=== PATIENT | male | born 1975 | race Caucasian/White ===

== ENCOUNTER 2017-08-29 00:02 | Inpatient (IN) | payer OTHER ==
[~2017-08-29] VITALS: Ht 172.7 cm; Wt 96.9 kg
[~2017-08-29 00:02] MED LIST: ALBU90OI INH; ALBU90OI6 INH; AMOCLA875 PO; AMOX500 PO; AMOX875 PO; ASPI325 PO; ASPI81CH PO; CEFU500 PO; GUAI600T33 PO; HYDACE5 PO; IBUHYD PO; INSLI100I SC; INSN100I SC; INSR10I; INSR10I SC; INSULANI; INSULANI SC; INSULIN NPH; ONDA4ODT MM; PROCODE120 PO; PROM25 PO; RANI150 PO; SULTRIDS PO
[2017-08-29 00:38] LABS: BASOPHILS ABSOLUTE AUTO 0.04 K/mm3 (0.00-0.23); BASOPHILS PERCENT AUTO 0 % (0-2); EOSINOPHILS ABSOLUTE AUTO 0.18 K/mm3 (0.00-0.68); EOSINOPHILS PERCENT AUTO 2 % (0-6); Hematocrit 45.8 % (37.0-53.0); Hemoglobin 15.3 g/dL (13.5-17.5); IMMATURE GRAN ABSOLUTE AUTO 0.07 K/mm3 (0.00-0.10); IMMATURE GRAN PERCENT AUTO 1 % (0-1); LYMPHOCYTES ABSOLUTE AUTO 1.94 K/mm3 (0.84-5.20); LYMPHOCYTES PERCENT AUTO 19 % (21-46); MONOCYTES ABSOLUTE AUTO 0.83 K/mm3 (0.16-1.47); MONOCYTES PERCENT AUTO 8 % (4-13); Mean Corpuscular HGB 27.7 pg (26.0-34.0); Mean Corpuscular HGB Conc 33.4 g/dL (31.5-36.5); Mean Corpuscular Volume 83 fL (80-100); NEUTROPHILS ABSOLUTE AUTO 7.07 K/mm3 (1.96-9.15); NEUTROPHILS PERCENT AUTO 70 % (41-73); Platelet Count 377 K/mm3 (150-400); RDW Standard Deviation 38.9 fL (35.1-46.3); Red Blood Cell Count 5.53 M/mm3 (4.30-5.90); White Blood Cell Count 10.13 K/mm3 (4.00-11.30)
[2017-08-29 01:02] LABS: Alanine Aminotransfer (ALT/SGP 34 U/L (12-78); Albumin, Blood 2.9 g/dL (3.4-5.0); Albumin/Globulin Ratio 0.7 (0.8-1.8); Alk Phos 114 U/L (50-136); Anion Gap 7 mmol/L (6-16); Aspartate Aminotrans (AST/SGOT 44 U/L (12-37); Bilirubin, Total 0.5 mg/dL (0.1-1.0); Blood Urea Nitrogen 18 mg/dL (8-24); Bun/Creatinine Ratio 15.9 (12.0-20.0); CO2, Blood 22 mmol/L (21-32); Calcium, Blood 8.5 mg/dL (8.5-10.1); Chloride, Blood 110 mmol/L (98-108); Creatinine, Blood 1.13 mg/dL (0.60-1.20); Globulin, Blood 4.1 g/dL (2.2-4.0); Glomerular Filtration Rate >60 (60-); Glucose, Blood 239 mg/dL (70-99); Potassium, Blood 4.3 mmol/L (3.5-5.5); Sodium, Blood 139 mmol/L (136-145)
[2017-08-29 08:22] LABS: BASOPHILS ABSOLUTE AUTO 0.03 K/mm3 (0.00-0.23); BASOPHILS PERCENT AUTO 0 % (0-2); EOSINOPHILS ABSOLUTE AUTO 0.21 K/mm3 (0.00-0.68); EOSINOPHILS PERCENT AUTO 2 % (0-6); Hematocrit 43.1 % (37.0-53.0); Hemoglobin 14.5 g/dL (13.5-17.5); IMMATURE GRAN ABSOLUTE AUTO 0.09 K/mm3 (0.00-0.10); IMMATURE GRAN PERCENT AUTO 1 % (0-1); LYMPHOCYTES PERCENT AUTO 20 % (21-46); MONOCYTES ABSOLUTE AUTO 0.86 K/mm3 (0.16-1.47); MONOCYTES PERCENT AUTO 9 % (4-13); Mean Corpuscular HGB Conc 33.6 g/dL (31.5-36.5); Mean Corpuscular Volume 83 fL (80-100); NEUTROPHILS ABSOLUTE AUTO 6.23 K/mm3 (1.96-9.15); NEUTROPHILS PERCENT AUTO 67 % (41-73); Platelet Count 331 K/mm3 (150-400); RDW Coefficient Variation 13.2 % (11.7-14.2); RDW Standard Deviation 40.3 fL (35.1-46.3); Red Blood Cell Count 5.17 M/mm3 (4.30-5.90); White Blood Cell Count 9.32 K/mm3 (4.00-11.30)
[2017-08-29 08:37] LABS: International Normalized Ratio 0.93; Prothrombin Time Results 9.7 Sec (9.7-11.5)
[2017-08-29 08:47] LABS: Alanine Aminotransfer (ALT/SGP 29 U/L (12-78); Albumin, Blood 2.6 g/dL (3.4-5.0); Albumin/Globulin Ratio 0.7 (0.8-1.8); Alk Phos 100 U/L (50-136); Anion Gap 6 mmol/L (6-16); Aspartate Aminotrans (AST/SGOT 41 U/L (12-37); Bilirubin, Total 0.3 mg/dL (0.1-1.0); Blood Urea Nitrogen 22 mg/dL (8-24); Bun/Creatinine Ratio 17.7 (12.0-20.0); CO2, Blood 23 mmol/L (21-32); Calcium, Blood 8.2 mg/dL (8.5-10.1); Chloride, Blood 109 mmol/L (98-108); Creatinine, Blood 1.24 mg/dL (0.60-1.20); Globulin, Blood 3.6 g/dL (2.2-4.0); Glomerular Filtration Rate >60 (60-); Glucose, Blood 190 mg/dL (70-99); Potassium, Blood 4.3 mmol/L (3.5-5.5); Sodium, Blood 138 mmol/L (136-145); Total Protein, Blood 6.2 g/dL (6.4-8.2)
[2017-08-29 08:57] LABS: Troponin I 10.9 ng/mL (0.000-0.040)
[2017-08-29 18:14] LABS: Troponin I 9.09 ng/mL (0.000-0.040)
[2017-08-30] MEDS ORDERED: INSU100I6 (08:47)
[2017-08-30] MEDS ORDERED: Humulin N100 UNIT/1 SC (08:49)
[2017-08-30] MEDS ORDERED: Protonix40 MG PO (08:54)
[2017-08-30] MEDS ORDERED: NITR.4SL SL (08:58)
[2017-08-30] MEDS ORDERED: LISI5 PO (09:00)
[2017-08-30] MEDS ORDERED: CLOP75 PO (09:00)
[2017-08-30] MEDS ORDERED: Lopressor 50 mg50 MG PO (09:00)
== END 2017-08-30 10:00 | disposition home or self-care (01) | DRG 282 ==
LOC: ER 00:02 → PCU 00:03 → ICUW 13:27
PROVIDERS: Emergency Medicine; Internal Medicine; Internal Medicine Cardiovascular Disease
PROC: 4A023N7 Measurement of Cardiac Sampling and Pressure, Left Heart, Percutaneous Approach (ICD-10-PCS; principal; 2017-08-29)
PROC: B2111ZZ Fluoroscopy of Multiple Coronary Arteries using Low Osmolar Contrast (ICD-10-PCS; 2017-08-29)
PROC: 3E0234Z Introduction of Serum, Toxoid and Vaccine into Muscle, Percutaneous Approach (ICD-10-PCS; 2017-08-29)
DX: I21.4 Non-ST elevation (NSTEMI) myocardial infarction (principal); E11.51 Type 2 diabetes mellitus with diabetic peripheral angiopathy without gangrene; E66.9 Obesity, unspecified; Z23 Encounter for immunization; F17.210 Nicotine dependence, cigarettes, uncomplicated; E78.5 Hyperlipidemia, unspecified; I25.10 Atherosclerotic heart disease of native coronary artery without angina pectoris; I10 Essential (primary) hypertension; K21.9 Gastro-esophageal reflux disease without esophagitis; Z68.32 Body mass index [BMI] 32.0-32.9, adult
CPT/HCPCS: 36415; 71046; 80053; 82550; 82947; 84484; 85025; 85610; 85730; 86850; 86900; 86901; 93005; 93010; 93306; 93458; 96374; 96375; 99152; 99153; 99285; C1769; C1894; G0378; J1644; J1815; J1885; J2250; J2310; J3010; J7030; J7040; Q9967

== ENCOUNTER 2017-10-03 00:16 | Emergency (ER) | payer OTHER ==
[~2017-10-03] VITALS: Ht 172.7 cm; Wt 99.8 kg
[~2017-10-03 00:16] MED LIST changes: +CLOP75 PO; +Humulin N100 UNIT/1 SC; +INSU100I6; +LISI5 PO; +Lopressor 50 mg50 MG PO; +NITR.4SL SL; +Protonix40 MG PO
[2017-10-03 01:13] LABS: BASOPHILS ABSOLUTE AUTO 0.04 K/mm3 (0.00-0.23); BASOPHILS PERCENT AUTO 1 % (0-2); EOSINOPHILS ABSOLUTE AUTO 0.31 K/mm3 (0.00-0.68); EOSINOPHILS PERCENT AUTO 4 % (0-6); Hematocrit 39.8 % (37.0-53.0); IMMATURE GRAN ABSOLUTE AUTO 0.09 K/mm3 (0.00-0.10); IMMATURE GRAN PERCENT AUTO 1 % (0-1); LYMPHOCYTES ABSOLUTE AUTO 1.47 K/mm3 (0.84-5.20); LYMPHOCYTES PERCENT AUTO 20 % (21-46); MONOCYTES ABSOLUTE AUTO 0.68 K/mm3 (0.16-1.47); MONOCYTES PERCENT AUTO 9 % (4-13); Mean Corpuscular HGB 27.7 pg (26.0-34.0); Mean Corpuscular HGB Conc 32.7 g/dL (31.5-36.5); Mean Corpuscular Volume 85 fL (80-100); Mean Platelet Volume 10.3 fL (9.1-12.4); NEUTROPHILS ABSOLUTE AUTO 4.88 K/mm3 (1.96-9.15); NEUTROPHILS PERCENT AUTO 65 % (41-73); Platelet Count 255 K/mm3 (150-400); RDW Coefficient Variation 13.4 % (11.7-14.2); RDW Standard Deviation 41.3 fL (35.1-46.3); White Blood Cell Count 7.47 K/mm3 (4.00-11.30)
[2017-10-03 01:33] LABS: Alanine Aminotransfer (ALT/SGP 48 U/L (12-78); Albumin, Blood 2.8 g/dL (3.4-5.0); Albumin/Globulin Ratio 0.8 (0.8-1.8); Alk Phos 130 U/L (50-136); Anion Gap 6 mmol/L (6-16); Aspartate Aminotrans (AST/SGOT 28 U/L (12-37); Bilirubin, Total 0.4 mg/dL (0.1-1.0); Blood Urea Nitrogen 28 mg/dL (8-24); Bun/Creatinine Ratio 26.4 (12.0-20.0); CO2, Blood 23 mmol/L (21-32); Chloride, Blood 109 mmol/L (98-108); Creatinine, Blood 1.06 mg/dL (0.60-1.20); Globulin, Blood 3.5 g/dL (2.2-4.0); Glomerular Filtration Rate >60 (60-); Glucose, Blood 441 mg/dL (70-99); Potassium, Blood 4.9 mmol/L (3.5-5.5); Sodium, Blood 138 mmol/L (136-145); Total Protein, Blood 6.3 g/dL (6.4-8.2); Troponin I <0.015 ng/mL (0.000-0.040)
== END 2017-10-03 02:10 | disposition home or self-care (01) ==
LOC: ER 00:16
PROVIDERS: Emergency Medicine
DX: R07.9 Chest pain, unspecified (principal); Z88.8 Allergy status to other drugs, medicaments and biological substances; Z79.4 Long term (current) use of insulin; Z79.82 Long term (current) use of aspirin; Z79.899 Other long term (current) drug therapy; E11.9 Type 2 diabetes mellitus without complications; I25.2 Old myocardial infarction; F17.210 Nicotine dependence, cigarettes, uncomplicated
CPT/HCPCS: 36415; 71046; 80053; 84484; 85025; 93005; 93010; 96374; 99283; J1885

== ENCOUNTER → 2018-06-16 | Outpatient (CLI) | payer OTHER ==
[2018-06-16 17:50] LABS: Creatinine, Urine Random 36.2 mg/dL (27.00-270.00)
[2018-06-16 18:19] LABS: Microalb/Creat Ratio UR, Rand 1975.14 mg/g (0.000-30.000)
== END | disposition home or self-care (01) ==
LOC: LAB 16:31 → LAB SHORT 16:31
PROVIDERS: Nurse Practitioner Family
DX: E10.9 Type 1 diabetes mellitus without complications (principal)
CPT/HCPCS: 82043; 82570

== ENCOUNTER 2018-11-23 13:52 | Emergency (ER) | payer OTHER ==
[~2018-11-23] VITALS: Ht 182.9 cm; Wt 99.8 kg
[2018-11-23 14:59] LABS: Alanine Aminotransfer (ALT/SGP 36 U/L (12-78); Albumin, Blood 2.6 g/dL (3.4-5.0); Albumin/Globulin Ratio 0.7 (0.8-1.8); Alk Phos 103 U/L (50-136); Anion Gap 7 mmol/L (6-16); Aspartate Aminotrans (AST/SGOT 30 U/L (12-37); Bilirubin, Total 0.6 mg/dL (0.1-1.0); Blood Urea Nitrogen 22 mg/dL (8-24); Bun/Creatinine Ratio 13.8 (12.0-20.0); CO2, Blood 26 mmol/L (21-32); Calcium, Blood 8.4 mg/dL (8.5-10.1); Chloride, Blood 111 mmol/L (98-108); Creatinine, Blood 1.59 mg/dL (0.60-1.20); Ethanol (Alcohol), Blood, Med <3 mg/dL; Globulin, Blood 3.6 g/dL (2.2-4.0); Glomerular Filtration Rate 51 (60-); Glucose, Blood 98 mg/dL (70-99); Potassium, Blood 3.9 mmol/L (3.5-5.5); Sodium, Blood 144 mmol/L (136-145); Total Protein, Blood 6.2 g/dL (6.4-8.2)
[2018-11-23 15:14] LABS: BASOPHILS ABSOLUTE AUTO 0.06 K/mm3 (0.00-0.23); BASOPHILS PERCENT AUTO 1 % (0-2); EOSINOPHILS ABSOLUTE AUTO 0.13 K/mm3 (0.00-0.68); EOSINOPHILS PERCENT AUTO 1 % (0-6); Hematocrit 47.4 % (37.0-53.0); Hemoglobin 15.5 g/dL (13.5-17.5); IMMATURE GRAN ABSOLUTE AUTO 0.08 K/mm3 (0.00-0.10); IMMATURE GRAN PERCENT AUTO 1 % (0-1); LYMPHOCYTES ABSOLUTE AUTO 1.24 K/mm3 (0.84-5.20); LYMPHOCYTES PERCENT AUTO 14 % (21-46); MONOCYTES ABSOLUTE AUTO 0.73 K/mm3 (0.16-1.47); MONOCYTES PERCENT AUTO 8 % (4-13); Mean Corpuscular HGB 28.3 pg (26.0-34.0); Mean Corpuscular HGB Conc 32.7 g/dL (31.5-36.5); Mean Corpuscular Volume 87 fL (80-100); Mean Platelet Volume 10.3 fL (9.1-12.4); NEUTROPHILS ABSOLUTE AUTO 6.92 K/mm3 (1.96-9.15); NEUTROPHILS PERCENT AUTO 76 % (41-73); Platelet Count 308 K/mm3 (150-400); Red Blood Cell Count 5.47 M/mm3 (4.30-5.90); White Blood Cell Count 9.16 K/mm3 (4.00-11.30)
[2018-11-23 15:45] LABS: Source, Urine Clean Catch
[2018-11-23 16:04] LABS: Bilirubin, Urine Neg (Neg); Blood, Urine 1+ (Neg); Glucose Qualitative, Urine 1+ (Neg); Ketones, Urine Neg (Neg); Leukocyte Esterase, Urine Neg (Neg); Nitrite, Urine Neg (Neg); Protein, Urine 4+ (Neg); Urobilinogen, Urine NORM (Normal)
[2018-11-23 16:14] LABS: Appearance, Urine Clear (Clear); Color, Urine Yellow (P-Yellow)
[2018-11-23 16:15] LABS: Bacteria Few /hpf; Hyaline Casts 0-2 /lpf (0-2); Squamous Epithelial Cells Not Seen /hpf (Few); White Blood Cells, Urine 0-2 /hpf (0-5)
== END 2018-11-23 19:08 | disposition home or self-care (01) ==
LOC: ER 13:52
PROVIDERS: Emergency Medicine
DX: E11.649 Type 2 diabetes mellitus with hypoglycemia without coma (principal); R51 Headache; G91.9 Hydrocephalus, unspecified; Z88.8 Allergy status to other drugs, medicaments and biological substances; Z79.4 Long term (current) use of insulin; Z79.82 Long term (current) use of aspirin; Z79.899 Other long term (current) drug therapy; F17.200 Nicotine dependence, unspecified, uncomplicated
CPT/HCPCS: 70450; 70553; 80053; 81001; 82947; 85025; 93005; 93010; 96374; 96375; 99284-25; A9577; G0480; J2405; J3010

== ENCOUNTER 2018-12-01 14:48 | Emergency (ER) | payer OTHER ==
[~2018-12-01] VITALS: Ht 172.7 cm; Wt 102.1 kg
== END 2018-12-01 18:25 | disposition home or self-care (01) ==
LOC: ER 14:48
DX: R51 Headache (principal); E11.9 Type 2 diabetes mellitus without complications; Z88.8 Allergy status to other drugs, medicaments and biological substances; Z79.899 Other long term (current) drug therapy; Z79.4 Long term (current) use of insulin; Z79.82 Long term (current) use of aspirin; F17.200 Nicotine dependence, unspecified, uncomplicated; Z87.01 Personal history of pneumonia (recurrent)
CPT/HCPCS: 36415; 96374; 96375; 99283-25; J0780; J1100; J1200; J1885

== ENCOUNTER 2019-01-23 14:36 | Emergency (ER) | payer OTHER ==
[~2019-01-23] VITALS: Ht 172.7 cm; Wt 99.8 kg
[2019-01-23 15:35] LABS: Source, Urine Clean Catch
[2019-01-23 15:41] LABS: Bilirubin, Urine Neg (Neg); Blood, Urine 2+ (Neg); Glucose Qualitative, Urine Neg (Neg); Ketones, Urine Neg (Neg); Leukocyte Esterase, Urine Neg (Neg); Nitrite, Urine Neg (Neg); Protein, Urine 4+ (Neg); Urobilinogen, Urine NORM (Normal)
[2019-01-23 15:45] LABS: Albumin, Blood 2.7 g/dL (3.4-5.0); Albumin/Globulin Ratio 0.8 (0.8-1.8); Bilirubin, Total 0.7 mg/dL (0.1-1.0); Bun/Creatinine Ratio 20.9 (12.0-20.0); Calcium, Blood 7.7 mg/dL (8.5-10.1); Creatinine, Blood 1.39 mg/dL (0.60-1.20); Globulin, Blood 3.4 g/dL (2.2-4.0); Potassium, Blood 5.1 mmol/L (3.5-5.5); Total Protein, Blood 6.1 g/dL (6.4-8.2)
[2019-01-23 15:46] LABS: Beta-hydroxybutyrate 3.1 mg/dL (0.2-2.8)
[2019-01-23 15:50] LABS: Appearance, Urine Clear (Clear); Color, Urine Yellow (P-Yellow)
[2019-01-23 15:52] LABS: Bacteria Few /hpf; Granular Casts 0-2 /lpf (0); Squamous Epithelial Cells Rare /hpf (Few); White Blood Cells, Urine 0-2 /hpf (0-5)
== END 2019-01-23 16:21 | disposition home or self-care (01) ==
LOC: ER 14:36
PROVIDERS: Physician Assistant
DX: E11.649 Type 2 diabetes mellitus with hypoglycemia without coma (principal); Z88.8 Allergy status to other drugs, medicaments and biological substances; Z79.4 Long term (current) use of insulin; Z79.82 Long term (current) use of aspirin; I25.2 Old myocardial infarction; F17.210 Nicotine dependence, cigarettes, uncomplicated
CPT/HCPCS: 36415; 80053; 81001; 82010; 82947; 93005; 93010; 99284-25

== ENCOUNTER 2019-06-18 16:11 | Emergency (ER) | payer OTHER ==
[~2019-06-18] VITALS: Ht 172.7 cm; Wt 125.6 kg
[2019-06-18 16:30] LABS: Calcium, Ionized (POC) 1.22 mmol/L (1.10-1.46); Chloride (POC) 109 mmol/L (98-108); Creatinine (POC) 2.2 mg/dL (0.8-1.3); Glucose (ISTAT POC) 142 mg/dL (70-99); Potassium (POC) 4.8 mmol/L (3.5-5.5); Sodium (POC) 140 mmol/L (135-148); Total CO2 (POC) 21 mmol/L (21-32)
[2019-06-18 16:37] LABS: BASOPHILS ABSOLUTE AUTO 0.09 K/mm3 (0.00-0.23); BASOPHILS PERCENT AUTO 1 % (0-2); EOSINOPHILS PERCENT AUTO 3 % (0-6); Hematocrit 49.2 % (37.0-53.0); Hemoglobin 16.3 g/dL (13.5-17.5); IMMATURE GRAN ABSOLUTE AUTO 0.23 K/mm3 (0.00-0.10); IMMATURE GRAN PERCENT AUTO 2 % (0-1); LYMPHOCYTES ABSOLUTE AUTO 2.78 K/mm3 (0.84-5.20); LYMPHOCYTES PERCENT AUTO 23 % (21-46); MONOCYTES ABSOLUTE AUTO 1.06 K/mm3 (0.16-1.47); MONOCYTES PERCENT AUTO 9 % (4-13); Mean Corpuscular HGB 28.7 pg (26.0-34.0); Mean Corpuscular HGB Conc 33.1 g/dL (31.5-36.5); Mean Corpuscular Volume 87 fL (80-100); Mean Platelet Volume 10.2 fL (9.1-12.4); NEUTROPHILS ABSOLUTE AUTO 7.72 K/mm3 (1.96-9.15); NEUTROPHILS PERCENT AUTO 63 % (41-73); Platelet Count 409 K/mm3 (150-400); RDW Coefficient Variation 12.5 % (11.7-14.2); RDW Standard Deviation 39.3 fL (35.1-46.3); Red Blood Cell Count 5.68 M/mm3 (4.30-5.90); White Blood Cell Count 12.18 K/mm3 (4.00-11.30)
[2019-06-18 16:58] LABS: Alanine Aminotransfer (ALT/SGP 44 U/L (12-78); Albumin, Blood 3.1 g/dL (3.4-5.0); Albumin/Globulin Ratio 0.7 (0.8-1.8); Alk Phos 160 U/L (50-136); Anion Gap 6 mmol/L (6-16); Aspartate Aminotrans (AST/SGOT 21 U/L (12-37); Bilirubin, Total 0.4 mg/dL (0.1-1.0); Blood Urea Nitrogen 40 mg/dL (8-24); Bun/Creatinine Ratio 19.5 (12.0-20.0); CO2, Blood 21 mmol/L (21-32); Calcium, Blood 9.5 mg/dL (8.5-10.1); Chloride, Blood 111 mmol/L (98-108); Creatinine, Blood 2.05 mg/dL (0.60-1.20); Globulin, Blood 4.2 g/dL (2.2-4.0); Glomerular Filtration Rate 38 (60-); Glucose, Blood 143 mg/dL (70-99); Potassium, Blood 4.8 mmol/L (3.5-5.5); Sodium, Blood 138 mmol/L (136-145); Total Protein, Blood 7.3 g/dL (6.4-8.2); Troponin I <0.015 ng/mL (0.000-0.040)
[2019-06-18] MEDS ORDERED: Zofran4 MG PO (20:40)
== END 2019-06-18 20:49 | disposition home or self-care (01) ==
LOC: ER 16:11
PROVIDERS: Emergency Medicine
DX: R55 Syncope and collapse (principal); Z88.8 Allergy status to other drugs, medicaments and biological substances; Z79.4 Long term (current) use of insulin; Z79.82 Long term (current) use of aspirin; Z79.899 Other long term (current) drug therapy; E11.9 Type 2 diabetes mellitus without complications; Z87.01 Personal history of pneumonia (recurrent); F17.200 Nicotine dependence, unspecified, uncomplicated
CPT/HCPCS: 71045; 80047; 80053; 83690; 84484; 85014; 85025; 93005; 93010; 96361; 96374; 99285-25; J2405; J7030

== ENCOUNTER 2019-11-29 14:10 | Emergency (ER) | payer OTHER ==
[~2019-11-29] VITALS: Ht 180.3 cm; Wt 86.2 kg
[~2019-11-29 14:10] MED LIST changes: +Zofran4 MG PO
[2019-11-29] MEDS ORDERED: OXYACE7.5T PO (16:22)
[2019-11-29] MEDS ORDERED: CRUTCH4 XX (16:23)
== END 2019-11-29 17:20 | disposition home or self-care (01) ==
LOC: ER 14:10
DX: S82.51XA Displaced fracture of medial malleolus of right tibia, initial encounter for closed fracture (principal); S82.831A Other fracture of upper and lower end of right fibula, initial encounter for closed fracture; Z88.8 Allergy status to other drugs, medicaments and biological substances; Z79.899 Other long term (current) drug therapy; Z79.82 Long term (current) use of aspirin; Z79.4 Long term (current) use of insulin; E11.9 Type 2 diabetes mellitus without complications; E78.5 Hyperlipidemia, unspecified; Z87.01 Personal history of pneumonia (recurrent); W22.8XXA Striking against or struck by other objects, initial encounter
CPT/HCPCS: 29515; 73590; 73610; 73630; 82947; 96374-59; 99284-25; J1885

== ENCOUNTER 2019-12-07 06:07 | Day surgery (SDC) | payer OTHER ==
[~2019-12-07] VITALS: Ht 172.7 cm; Wt 104.5 kg
[~2019-12-07 06:07] MED LIST changes: +CRUTCH4 XX; +OXYACE7.5T PO
[2019-12-07] MEDS ORDERED: AMIT50 PO (07:31)
[2019-12-07] MEDS ORDERED: BASAGLAR K100 UNIT/3 (07:31)
[2019-12-07] MEDS ORDERED: Chantix1 MG (07:31)
--- NOTE | 2019-12-07 13:30 | NUR ---
12/07/19 1330 Jaymie Armas (Maria D PT UNSURE IF HE IS STILL TAKING PLAVIX. PT STS HE DID NOT HOLD ANY MEDICATIONS LEADING UP TO SURGERY. STS HE TOOK ALL OF HIS "CARDIAC MEDS THIS MORNING" BUT DOESN'T KNOW THE MEDICATION NAMES. SURGEON & ANESTHESIOLOGIST NOTIFIED. UNABLE TO CALL PT'S HOME TO VERIFY MEDICATIONS, UNABLE TO CALL PHARMACY. ANESTHESIOLOGIST REQUESTS TO RESCHEDULE PROCEDURE FOR SAFETY; PT AGREES.
== END 2019-12-07 07:51 | disposition home or self-care (01) ==
LOC: ORSCSDS 06:07
DX: S82.51XA Displaced fracture of medial malleolus of right tibia, initial encounter for closed fracture (principal); S93.491A Sprain of other ligament of right ankle, initial encounter; Z53.9 Procedure and treatment not carried out, unspecified reason; E11.9 Type 2 diabetes mellitus without complications
CPT/HCPCS: 82947; J0171; J0690; J2250; J2704; J3010; J7120

== ENCOUNTER 2019-12-12 06:09 | Day surgery (SDC) | payer OTHER ==
[~2019-12-12] VITALS: Ht 172.7 cm; Wt 108.6 kg
[~2019-12-12 06:09] MED LIST changes: +AMIT50 PO; +BASAGLAR K100 UNIT/3; +Chantix1 MG
--- NOTE | 2019-12-12 07:24 | NUR ---
12/12/19 0724 BRYAN GU CBG OF [address] MANN ADVISED AND NEW ORDER FOR REGULAR INSULIN, 20 UNITS SQ RECEIVED. PATIENT GIVEN 20 UNITS SQ IN LEFT UPPER ARM.
--- NOTE | 2019-12-12 08:57 | NUR ---
12/12/19 0857 Alejandra Dean REPORT GIVEN TO NURSE GANDHI.
--- NOTE | 2019-12-12 11:04 | NUR ---
12/12/19 1104 [place],Kathryn 0918 FENTANYL 50MCG GIVEN IV FOR CO PAIN 5/10. RELIEF TO 3/10 AFTER 15-20 MIN AND STATES IS TOLERABLE. 0924 20 UNITS OF HUMULIN R GIVEN SQ LEFT ARM PER TELEPHONE ORDER DR. MANN FOR BLOOD SUGAR OF 390. CRACKERS/BEVERAGE GIVEN. NO CO NAUSEA. PAIN TOLERABLE LEVEL PER PT. DISCHARGE INSTRUCTIONS GIVEN. DISCHARGED HOME WITH FRIEND FIONA.
[2019-12-15] MEDS ORDERED: ONDA4ODT MM (17:12)
== END 2019-12-12 10:15 | disposition home or self-care (01) ==
LOC: ORSCSDS 06:09
PROVIDERS: Podiatrist Foot & Ankle Surgery
PROC: 0QSG04Z Reposition Right Tibia with Internal Fixation Device, Open Approach (ICD-10-PCS; principal; 2019-12-12 07:30)
DX: S82.51XA Displaced fracture of medial malleolus of right tibia, initial encounter for closed fracture (principal); S93.491A Sprain of other ligament of right ankle, initial encounter; I10 Essential (primary) hypertension; I25.10 Atherosclerotic heart disease of native coronary artery without angina pectoris; F17.210 Nicotine dependence, cigarettes, uncomplicated; N18.9 Chronic kidney disease, unspecified; E11.9 Type 2 diabetes mellitus without complications; Z79.4 Long term (current) use of insulin; Z79.899 Other long term (current) drug therapy; Z79.82 Long term (current) use of aspirin; Z79.01 Long term (current) use of anticoagulants
CPT/HCPCS: 82947; C1713; C1769; J0171; J0360; J0690; J1815; J2250; J2405; J2704; J2710; J2765; J3010; J7120

== ENCOUNTER 2020-02-26 07:11 | Day surgery (SDC) | payer OTHER ==
[2020-03-29] MEDS ORDERED: HYDCHL25 PO (05:39)
[2020-03-29] MEDS ORDERED: BASAGLAR K100 UNIT/1 SC (05:40)
[2020-03-29] MEDS ORDERED: LIPITOR80 MG PO (05:41)
[2020-03-29] MEDS ORDERED: ESCI10 PO (05:41)
[2020-03-29] MEDS ORDERED: PANTOPRAZOLE SO20 MG PO (05:42)
[2020-03-29] MEDS ORDERED: LISI20 PO (05:42)
[2020-03-29] MEDS ORDERED: ISOSORBIDE MONO30 MG PO (05:44)
[2020-03-29] MEDS ORDERED: INSULIN LI100 UNIT/6 SC (05:44)
[2020-03-30] MEDS ORDERED: Norco 5-325 Ta1 EACH PO (11:03)
[2020-03-30] MEDS ORDERED: ASPIR 8181 M1 PO (11:20)
== END 2020-02-26 22:37 | disposition home or self-care (01) ==
LOC: WOUND 07:11
DX: E10.622 Type 1 diabetes mellitus with other skin ulcer (principal); L97.312 Non-pressure chronic ulcer of right ankle with fat layer exposed; E10.52 Type 1 diabetes mellitus with diabetic peripheral angiopathy with gangrene; I96 Gangrene, not elsewhere classified; I12.9 Hypertensive chronic kidney disease with stage 1 through stage 4 chronic kidney disease, or unspecified chronic kidney disease; E10.22 Type 1 diabetes mellitus with diabetic chronic kidney disease; N18.9 Chronic kidney disease, unspecified; H74.93 Unspecified disorder of middle ear and mastoid, bilateral; F32.9 Major depressive disorder, single episode, unspecified; G43.909 Migraine, unspecified, not intractable, without status migrainosus; I25.10 Atherosclerotic heart disease of native coronary artery without angina pectoris; I25.2 Old myocardial infarction; F17.210 Nicotine dependence, cigarettes, uncomplicated; Z88.8 Allergy status to other drugs, medicaments and biological substances; Z91.048 Other nonmedicinal substance allergy status; Z79.4 Long term (current) use of insulin; Z79.82 Long term (current) use of aspirin; Z79.02 Long term (current) use of antithrombotics/antiplatelets; Z79.899 Other long term (current) drug therapy; Z96.60 Presence of unspecified orthopedic joint implant; X58.XXXA Exposure to other specified factors, initial encounter

== ENCOUNTER 2020-03-07 12:57 | Day surgery (SDC) | payer OTHER | END 2020-03-07 22:37 | disposition home or self-care (01) | LOC: WOUND 12:57 | DX: T81.31XA Disruption of external operation (surgical) wound, not elsewhere classified, initial encounter (principal); S82.51XD Displaced fracture of medial malleolus of right tibia, subsequent encounter for closed fracture with routine healing; S93.491D Sprain of other ligament of right ankle, subsequent encounter; N18.9 Chronic kidney disease, unspecified; E11.22 Type 2 diabetes mellitus with diabetic chronic kidney disease ==

== ENCOUNTER 2020-03-21 00:30 | Day surgery (SDC) | payer OTHER ==
[2020-03-29] MEDS ORDERED: HYDCHL25 PO (05:39)
[2020-03-29] MEDS ORDERED: BASAGLAR K100 UNIT/1 SC (05:40)
[2020-03-29] MEDS ORDERED: LIPITOR80 MG PO (05:41)
[2020-03-29] MEDS ORDERED: ESCI10 PO (05:41)
[2020-03-29] MEDS ORDERED: PANTOPRAZOLE SO20 MG PO (05:42)
[2020-03-29] MEDS ORDERED: LISI20 PO (05:42)
[2020-03-29] MEDS ORDERED: ISOSORBIDE MONO30 MG PO (05:44)
[2020-03-29] MEDS ORDERED: INSULIN LI100 UNIT/6 SC (05:44)
[2020-03-30] MEDS ORDERED: Norco 5-325 Ta1 EACH PO (11:03)
[2020-03-30] MEDS ORDERED: ASPIR 8181 M1 PO (11:20)
== END 2020-03-21 12:00 | disposition home or self-care (01) ==
LOC: WOUND 00:30
DX: T81.31XA Disruption of external operation (surgical) wound, not elsewhere classified, initial encounter (principal); S93.491D Sprain of other ligament of right ankle, subsequent encounter; S82.51XD Displaced fracture of medial malleolus of right tibia, subsequent encounter for closed fracture with routine healing; E11.22 Type 2 diabetes mellitus with diabetic chronic kidney disease; N18.9 Chronic kidney disease, unspecified; Z79.4 Long term (current) use of insulin; Z79.899 Other long term (current) drug therapy

== ENCOUNTER 2020-03-28 00:32 | Day surgery (SDC) | payer OTHER ==
[2020-03-29] MEDS ORDERED: HYDCHL25 PO (05:39)
[2020-03-29] MEDS ORDERED: BASAGLAR K100 UNIT/1 SC (05:40)
[2020-03-29] MEDS ORDERED: ESCI10 PO (05:41)
[2020-03-29] MEDS ORDERED: LIPITOR80 MG PO (05:41)
[2020-03-29] MEDS ORDERED: LISI20 PO (05:42)
[2020-03-29] MEDS ORDERED: PANTOPRAZOLE SO20 MG PO (05:42)
[2020-03-29] MEDS ORDERED: INSULIN LI100 UNIT/6 SC (05:44)
[2020-03-29] MEDS ORDERED: ISOSORBIDE MONO30 MG PO (05:44)
[2020-03-30] MEDS ORDERED: Norco 5-325 Ta1 EACH PO (11:03)
[2020-03-30] MEDS ORDERED: ASPIR 8181 M1 PO (11:20)
== END 2020-03-28 22:51 | disposition home or self-care (01) ==
LOC: WOUND 00:32
DX: T81.31XA Disruption of external operation (surgical) wound, not elsewhere classified, initial encounter (principal); S93.491D Sprain of other ligament of right ankle, subsequent encounter; S82.51XD Displaced fracture of medial malleolus of right tibia, subsequent encounter for closed fracture with routine healing; E11.22 Type 2 diabetes mellitus with diabetic chronic kidney disease; N18.9 Chronic kidney disease, unspecified; Z79.899 Other long term (current) drug therapy; Z79.4 Long term (current) use of insulin

== ENCOUNTER 2020-03-29 00:48 | Inpatient (IN) | payer OTHER | END 2020-03-30 12:45 | disposition home or self-care (01) | DRG 418 | LOC: ER 00:48 → SURS 05:26 | PROVIDERS: ADMIT Internal Medicine | PROC: 0FT44ZZ Resection of Gallbladder, Percutaneous Endoscopic Approach (ICD-10-PCS; principal; 2020-03-29) | PROC: BF03YZZ Plain Radiography of Gallbladder and Bile Ducts using Other Contrast (ICD-10-PCS; 2020-03-29) | DX: K80.01 Calculus of gallbladder with acute cholecystitis with obstruction (principal); N17.9 Acute kidney failure, unspecified; K82.A1 Gangrene of gallbladder in cholecystitis; D47.3 Essential (hemorrhagic) thrombocythemia; N18.30 Chronic kidney disease, stage 3 unspecified; D63.1 Anemia in chronic kidney disease; E11.22 Type 2 diabetes mellitus with diabetic chronic kidney disease; K21.9 Gastro-esophageal reflux disease without esophagitis; I12.9 Hypertensive chronic kidney disease with stage 1 through stage 4 chronic kidney disease, or unspecified chronic kidney disease; I25.10 Atherosclerotic heart disease of native coronary artery without angina pectoris; E66.9 Obesity, unspecified; Z68.36 Body mass index [BMI] 36.0-36.9, adult; Z79.4 Long term (current) use of insulin; Z79.82 Long term (current) use of aspirin; Z79.02 Long term (current) use of antithrombotics/antiplatelets; Z87.891 Personal history of nicotine dependence ==

== ENCOUNTER 2021-07-03 07:33 | Day surgery (SDC) | payer OTHER ==
[~2021-07-03 07:33] MED LIST changes: +ASPIR 8181 M1 PO; +BASAGLAR K100 UNIT/1 SC; +ESCI10 PO; +HYDCHL25 PO; +INSULIN LI100 UNIT/6 SC; +ISOSORBIDE MONO30 MG PO; +LIPITOR80 MG PO; +LISI20 PO; +Norco 5-325 Ta1 EACH PO; +PANTOPRAZOLE SO20 MG PO
== END 2021-07-03 23:48 | disposition home or self-care (01) ==
LOC: WOUND 07:33
DX: E11.621 Type 2 diabetes mellitus with foot ulcer (principal); L97.419 Non-pressure chronic ulcer of right heel and midfoot with unspecified severity; T81.31XA Disruption of external operation (surgical) wound, not elsewhere classified, initial encounter; S93.491D Sprain of other ligament of right ankle, subsequent encounter; S82.51XD Displaced fracture of medial malleolus of right tibia, subsequent encounter for closed fracture with routine healing; X58.XXXD Exposure to other specified factors, subsequent encounter; R77.0 Abnormality of albumin; N18.30 Chronic kidney disease, stage 3 unspecified; E11.22 Type 2 diabetes mellitus with diabetic chronic kidney disease; Z88.8 Allergy status to other drugs, medicaments and biological substances; F17.210 Nicotine dependence, cigarettes, uncomplicated
CPT/HCPCS: G0463

== ENCOUNTER 2021-07-08 01:48 | Day surgery (SDC) | payer OTHER | END 2021-07-08 22:36 | disposition home or self-care (01) | LOC: WOUND 01:48 | DX: E11.69 Type 2 diabetes mellitus with other specified complication (principal); M86.471 Chronic osteomyelitis with draining sinus, right ankle and foot; E11.621 Type 2 diabetes mellitus with foot ulcer; L97.319 Non-pressure chronic ulcer of right ankle with unspecified severity; T81.31XA Disruption of external operation (surgical) wound, not elsewhere classified, initial encounter; S82.51XD Displaced fracture of medial malleolus of right tibia, subsequent encounter for closed fracture with routine healing; E11.22 Type 2 diabetes mellitus with diabetic chronic kidney disease; N18.30 Chronic kidney disease, stage 3 unspecified; R77.0 Abnormality of albumin | CPT/HCPCS: A9270; G0463 ==

== ENCOUNTER 2021-07-22 01:22 | Day surgery (SDC) | payer OTHER | END 2021-07-22 23:03 | disposition home or self-care (01) | LOC: WOUND 01:22 | DX: E11.621 Type 2 diabetes mellitus with foot ulcer (principal); L97.518 Non-pressure chronic ulcer of other part of right foot with other specified severity; T81.31XA Disruption of external operation (surgical) wound, not elsewhere classified, initial encounter; R77.0 Abnormality of albumin; E11.22 Type 2 diabetes mellitus with diabetic chronic kidney disease; N18.30 Chronic kidney disease, stage 3 unspecified; E11.69 Type 2 diabetes mellitus with other specified complication; M86.471 Chronic osteomyelitis with draining sinus, right ankle and foot | CPT/HCPCS: G0463 ==

== ENCOUNTER 2021-08-25 00:39 | Day surgery (SDC) | payer OTHER | END 2021-08-25 22:55 | disposition home or self-care (01) | LOC: WOUND 00:39 | DX: E11.622 Type 2 diabetes mellitus with other skin ulcer (principal); L97.319 Non-pressure chronic ulcer of right ankle with unspecified severity; E11.69 Type 2 diabetes mellitus with other specified complication; M86.471 Chronic osteomyelitis with draining sinus, right ankle and foot; E11.22 Type 2 diabetes mellitus with diabetic chronic kidney disease; N18.30 Chronic kidney disease, stage 3 unspecified; R77.0 Abnormality of albumin; S82.51XD Displaced fracture of medial malleolus of right tibia, subsequent encounter for closed fracture with routine healing; T81.31XA Disruption of external operation (surgical) wound, not elsewhere classified, initial encounter; Y83.9 Surgical procedure, unspecified as the cause of abnormal reaction of the patient, or of later complication, without mention of misadventure at the time of the procedure | CPT/HCPCS: G0463 ==

== ENCOUNTER 2021-09-18 03:07 | Day surgery (SDC) | payer OTHER | END 2021-09-18 22:56 | disposition home or self-care (01) | LOC: WOUND 03:07 | DX: E11.621 Type 2 diabetes mellitus with foot ulcer (principal); L97.519 Non-pressure chronic ulcer of other part of right foot with unspecified severity; S82.51XD Displaced fracture of medial malleolus of right tibia, subsequent encounter for closed fracture with routine healing; T81.31XA Disruption of external operation (surgical) wound, not elsewhere classified, initial encounter; R77.2 Abnormality of alphafetoprotein; E11.22 Type 2 diabetes mellitus with diabetic chronic kidney disease; N18.30 Chronic kidney disease, stage 3 unspecified | CPT/HCPCS: 87070; 87075; 87205; G0463 ==

== ENCOUNTER 2021-10-02 00:34 | Day surgery (SDC) | payer OTHER | END 2021-10-03 22:38 | disposition home or self-care (01) | LOC: WOUND 00:34 | DX: E11.69 Type 2 diabetes mellitus with other specified complication (principal); M86.471 Chronic osteomyelitis with draining sinus, right ankle and foot; S82.51XD Displaced fracture of medial malleolus of right tibia, subsequent encounter for closed fracture with routine healing; T81.31XD Disruption of external operation (surgical) wound, not elsewhere classified, subsequent encounter; E11.622 Type 2 diabetes mellitus with other skin ulcer; L97.319 Non-pressure chronic ulcer of right ankle with unspecified severity; R77.0 Abnormality of albumin; E11.22 Type 2 diabetes mellitus with diabetic chronic kidney disease; N18.30 Chronic kidney disease, stage 3 unspecified | CPT/HCPCS: G0463 ==

== ENCOUNTER 2021-10-16 01:04 | Day surgery (SDC) | payer OTHER | END 2021-10-16 23:00 | disposition home or self-care (01) | LOC: WOUND 01:04 | DX: E11.622 Type 2 diabetes mellitus with other skin ulcer (principal); L97.318 Non-pressure chronic ulcer of right ankle with other specified severity; E11.69 Type 2 diabetes mellitus with other specified complication; M86.471 Chronic osteomyelitis with draining sinus, right ankle and foot; S82.51XD Displaced fracture of medial malleolus of right tibia, subsequent encounter for closed fracture with routine healing; T81.31XA Disruption of external operation (surgical) wound, not elsewhere classified, initial encounter; E11.22 Type 2 diabetes mellitus with diabetic chronic kidney disease; N18.30 Chronic kidney disease, stage 3 unspecified; Y83.8 Other surgical procedures as the cause of abnormal reaction of the patient, or of later complication, without mention of misadventure at the time of the procedure | CPT/HCPCS: A9270; G0463 ==

== ENCOUNTER 2021-12-04 08:00 | Day surgery (SDC) | payer OTHER ==
[~2021-12-04 08:00] MED LIST changes: +BASAGLAR K100 UNIT/1; -BASAGLAR K100 UNIT/1 SC
== END 2021-12-04 23:59 | disposition home or self-care (01) ==
LOC: WOUND
DX: E11.622 Type 2 diabetes mellitus with other skin ulcer (principal); L97.312 Non-pressure chronic ulcer of right ankle with fat layer exposed; S82.51XD Displaced fracture of medial malleolus of right tibia, subsequent encounter for closed fracture with routine healing; X58.XXXD Exposure to other specified factors, subsequent encounter; T81.31XA Disruption of external operation (surgical) wound, not elsewhere classified, initial encounter; R77.0 Abnormality of albumin; N18.30 Chronic kidney disease, stage 3 unspecified; E11.22 Type 2 diabetes mellitus with diabetic chronic kidney disease; M86.471 Chronic osteomyelitis with draining sinus, right ankle and foot
CPT/HCPCS: A9270; G0463

== ENCOUNTER 2021-12-13 15:54 | Inpatient (IN) | payer OTHER ==
[~2021-12-13] VITALS: Ht 172.7 cm; Wt 106.5 kg
[2021-12-13 17:10] LABS: BASOPHILS ABSOLUTE AUTO 0.06 K/mm3 (0.00-0.23); BASOPHILS PERCENT AUTO 0 % (0-2); EOSINOPHILS PERCENT AUTO 1 % (0-6); Hematocrit 40.8 % (37.0-53.0); Hemoglobin 13.3 g/dL (13.5-17.5); IMMATURE GRAN ABSOLUTE AUTO 0.22 K/mm3 (0.00-0.10); IMMATURE GRAN PERCENT AUTO 2 % (0-1); LYMPHOCYTES ABSOLUTE AUTO 1.49 K/mm3 (0.84-5.20); LYMPHOCYTES PERCENT AUTO 10 % (21-46); MONOCYTES ABSOLUTE AUTO 1.27 K/mm3 (0.16-1.47); MONOCYTES PERCENT AUTO 9 % (4-13); Mean Corpuscular HGB 28.7 pg (26.0-34.0); Mean Corpuscular HGB Conc 32.6 g/dL (31.5-36.5); Mean Corpuscular Volume 88 fL (80-100); Mean Platelet Volume 10.5 fL (9.1-12.4); NEUTROPHILS PERCENT AUTO 78 % (41-73); Platelet Count 409 K/mm3 (150-400); RDW Coefficient Variation 13.3 % (11.7-14.2); RDW Standard Deviation 43.4 fL (35.1-46.3); Red Blood Cell Count 4.64 M/mm3 (4.30-5.90); White Blood Cell Count 14.64 K/mm3 (4.00-11.30)
[2021-12-13 17:26] LABS: C-REACTIVE PROTEIN, EXT RANGE 5.83 mg/dL (0.000-0.300)
[2021-12-13 17:28] LABS: Albumin, Blood 2.7 g/dL (3.4-5.0); Albumin/Globulin Ratio 0.6 (0.8-1.8); Bilirubin, Total 0.3 mg/dL (0.1-1.0); Bun/Creatinine Ratio 23.5 (12.0-20.0); Calcium, Blood 8.5 mg/dL (8.5-10.1); Creatinine, Blood 1.96 mg/dL (0.60-1.20); Globulin, Blood 4.5 g/dL (2.2-4.0); Potassium, Blood 5.3 mmol/L (3.5-5.5); Total Protein, Blood 7.2 g/dL (6.4-8.2)
[2021-12-13 23:23] LABS: Influenza A, PCR NEGATIVE (NEGATIVE); Influenza B, PCR NEGATIVE (NEGATIVE); Resp Syncytial Virus, PCR NEGATIVE (NEGATIVE); SARS-Cov-2 (COVID-19) PCR, MMC NEGATIVE (NEGATIVE)
--- NOTE | 2021-12-14 04:34 | NUR ---
SUMMARY PT ARRIVED TO FLOOR IN NO DISTRESS OR DISCOMFORT. PT HAS REMAINED NPO SINCE 0000 HRS. PT HAS SLEPT FOR REMAINDER OF SHIFT. PT HAS DENIED PAIN OR DISCOMFORT. PT CURRENTLY SLEEPING IN NO DISTRESS. CALL LIGHT IN REACH.
[2021-12-14 05:39] LABS: BASOPHILS ABSOLUTE AUTO 0.06 K/mm3 (0.00-0.23); BASOPHILS PERCENT AUTO 1 % (0-2); EOSINOPHILS ABSOLUTE AUTO 0.26 K/mm3 (0.00-0.68); EOSINOPHILS PERCENT AUTO 3 % (0-6); Hematocrit 39.2 % (37.0-53.0); Hemoglobin 12.6 g/dL (13.5-17.5); IMMATURE GRAN ABSOLUTE AUTO 0.11 K/mm3 (0.00-0.10); IMMATURE GRAN PERCENT AUTO 1 % (0-1); LYMPHOCYTES ABSOLUTE AUTO 1.71 K/mm3 (0.84-5.20); LYMPHOCYTES PERCENT AUTO 18 % (21-46); MONOCYTES ABSOLUTE AUTO 1.01 K/mm3 (0.16-1.47); MONOCYTES PERCENT AUTO 11 % (4-13); Mean Corpuscular HGB Conc 32.1 g/dL (31.5-36.5); Mean Corpuscular Volume 90 fL (80-100); Mean Platelet Volume 10.5 fL (9.1-12.4); NEUTROPHILS ABSOLUTE AUTO 6.45 K/mm3 (1.96-9.15); NEUTROPHILS PERCENT AUTO 67 % (41-73); Platelet Count 352 K/mm3 (150-400); RDW Coefficient Variation 13.3 % (11.7-14.2); RDW Standard Deviation 43.8 fL (35.1-46.3); Red Blood Cell Count 4.34 M/mm3 (4.30-5.90)
[2021-12-14 06:07] LABS: Albumin, Blood 2.4 g/dL (3.4-5.0); Albumin/Globulin Ratio 0.6 (0.8-1.8); Bilirubin, Total 0.5 mg/dL (0.1-1.0); Bun/Creatinine Ratio 21.1 (12.0-20.0); Calcium, Blood 8.9 mg/dL (8.5-10.1); Creatinine, Blood 1.85 mg/dL (0.60-1.20); Globulin, Blood 4.1 g/dL (2.2-4.0); Potassium, Blood 4.4 mmol/L (3.5-5.5); Total Protein, Blood 6.5 g/dL (6.4-8.2)
--- NOTE | 2021-12-14 17:21 | NUR ---
12/14/21 1721 Terrie Reynolds NO PREOP ANTIBIOTICS ORDERED PER PATIENT IS ON SCHEDULED ANTIBIOTICS.
--- NOTE | 2021-12-14 18:31 | NUR ---
SHIFT SUMMARY PATIENT ALERT AND ORIENTED. NAPPED FREQUENTLY. INDEPENDENT IN ROOM. WENT FOR I&D OF RIGHT ANKLE WITH DR GODINEZ AT 1600. PRE OP PATIENT REPORTED NO PAIN. RIGHT ANKLE SWOLLEN WITH SMALL OPEN WOUND. NO DRAINAGE THIS SHIFT. WILL REPORT TO DIAMOND SIZER AND SORTER RN.
[2021-12-15 05:23] LABS: BASOPHILS ABSOLUTE AUTO 0.03 K/mm3 (0.00-0.23); BASOPHILS PERCENT AUTO 0 % (0-2); EOSINOPHILS PERCENT AUTO 0 % (0-6); Hematocrit 38.9 % (37.0-53.0); Hemoglobin 12.9 g/dL (13.5-17.5); IMMATURE GRAN ABSOLUTE AUTO 0.13 K/mm3 (0.00-0.10); IMMATURE GRAN PERCENT AUTO 1 % (0-1); LYMPHOCYTES ABSOLUTE AUTO 0.83 K/mm3 (0.84-5.20); LYMPHOCYTES PERCENT AUTO 6 % (21-46); MONOCYTES ABSOLUTE AUTO 0.81 K/mm3 (0.16-1.47); MONOCYTES PERCENT AUTO 6 % (4-13); Mean Corpuscular HGB Conc 33.2 g/dL (31.5-36.5); Mean Corpuscular Volume 87 fL (80-100); Mean Platelet Volume 10.5 fL (9.1-12.4); NEUTROPHILS ABSOLUTE AUTO 11.24 K/mm3 (1.96-9.15); NEUTROPHILS PERCENT AUTO 86 % (41-73); Platelet Count 396 K/mm3 (150-400); RDW Coefficient Variation 13.2 % (11.7-14.2); RDW Standard Deviation 42.1 fL (35.1-46.3); Red Blood Cell Count 4.45 M/mm3 (4.30-5.90); White Blood Cell Count 13.04 K/mm3 (4.00-11.30)
[2021-12-15 05:46] LABS: Anion Gap 10 mmol/L (6-16); Blood Urea Nitrogen 39 mg/dL (8-24); Bun/Creatinine Ratio 20.5 (12.0-20.0); CO2, Blood 19 mmol/L (21-32); Calcium, Blood 8.5 mg/dL (8.5-10.1); Chloride, Blood 105 mmol/L (98-108); Glomerular Filtration Rate 44 (60-); Glucose, Blood 324 mg/dL (70-99); Potassium, Blood 5.6 mmol/L (3.5-5.5); Sodium, Blood 134 mmol/L (136-145); Vancomycin, Trough 14.9 ug/mL (5.0-10.0)
--- NOTE | 2021-12-15 07:33 | NUR ---
SHIFT SUMMARY POD1 I&D ON R ANKLE WITH REMOVAL OF HARDWARE. NWB ON RLE. PT REPORTS MODERATE PAIN, PAIN MANAGED WITH FENTANYL 50MCG. PT REPORTS THAT R FOOT FEELS LIKE HAVING CRAMPING SENSATION. RLE ELEVATED WITH PILLOW. CONT REPOSITIONING. AOX4. CBG THIS MORNING WAS STILL OVER 300. PT WAS HYPERTENSIVE AFTER SURGERY. CALLED DR. CHOI, HYDRALAZINE 10MG Q6. GIVEN ONCE. BP IMPROVED. VOIDING. CALL LIGHT WITHN REACH. REPORT GIVEN TO ODESSA DICKINSON
--- NOTE | 2021-12-15 08:30 | NUR ---
CGB [address] MRAIN. RECEIVED ORDERS TO CHANGE TO HIGH SLIDING SCALE AND TO ADMINISTER ANOTHER 15 UNITS OF LONG ACTING INSULIN.
--- NOTE | 2021-12-15 19:06 | NUR ---
SHIFT SUMMARY PT POD #1 FOR R FOOT I&D. DRESSING CHANGED THIS SHIFT. NO COMPLAINTS OF PAIN AND DRESSING CDI. PT REQUESTING TO TAKE HOME HARDWARE THAT WAS IN HIS ANKLE. INSULIN ADJUSTED DUE TO HIGH BLOOD GLUCOSE LEVEL THIS AM. BLOOD GLUCOSE LEVELS TRENDING DOWN. RECEIVING IV ANTIBIOTICS. VSS.
[2021-12-16 05:36] LABS: BASOPHILS ABSOLUTE AUTO 0.05 K/mm3 (0.00-0.23); BASOPHILS PERCENT AUTO 1 % (0-2); EOSINOPHILS PERCENT AUTO 3 % (0-6); Hematocrit 37.2 % (37.0-53.0); Hemoglobin 12.2 g/dL (13.5-17.5); IMMATURE GRAN ABSOLUTE AUTO 0.17 K/mm3 (0.00-0.10); IMMATURE GRAN PERCENT AUTO 2 % (0-1); LYMPHOCYTES ABSOLUTE AUTO 1.56 K/mm3 (0.84-5.20); LYMPHOCYTES PERCENT AUTO 16 % (21-46); MONOCYTES ABSOLUTE AUTO 1.03 K/mm3 (0.16-1.47); MONOCYTES PERCENT AUTO 11 % (4-13); Mean Corpuscular HGB Conc 32.8 g/dL (31.5-36.5); Mean Corpuscular Volume 89 fL (80-100); Mean Platelet Volume 10.8 fL (9.1-12.4); NEUTROPHILS ABSOLUTE AUTO 6.54 K/mm3 (1.96-9.15); NEUTROPHILS PERCENT AUTO 68 % (41-73); Platelet Count 366 K/mm3 (150-400); RDW Coefficient Variation 13.2 % (11.7-14.2); RDW Standard Deviation 42.7 fL (35.1-46.3); White Blood Cell Count 9.65 K/mm3 (4.00-11.30)
--- NOTE | 2021-12-16 05:51 | NUR ---
SUMMARY NO NEW ISSUES NOTED. PT DENIES PAIN. PT SLEPT THROUGHOUT SHIFT. CALL LIGHT IN REACH.
[2021-12-16 06:03] LABS: Anion Gap 9 mmol/L (6-16); Blood Urea Nitrogen 44 mg/dL (8-24); Bun/Creatinine Ratio 22.6 (12.0-20.0); CO2, Blood 22 mmol/L (21-32); Chloride, Blood 106 mmol/L (98-108); Creatinine, Blood 1.95 mg/dL (0.60-1.20); Glomerular Filtration Rate 42 (60-); Glucose, Blood 269 mg/dL (70-99); Potassium, Blood 4.4 mmol/L (3.5-5.5); Sodium, Blood 137 mmol/L (136-145); Vancomycin, Trough 16.3 ug/mL (5.0-10.0)
[2021-12-16] MEDS ORDERED: HUMALOG KW100 UNIT/1 SC (13:02)
[2021-12-16] MEDS ORDERED: VISBIOME 112.51 EACH PO (13:03)
[2021-12-16] MEDS ORDERED: Veetids 500500 MG PO (13:04)
--- NOTE | 2021-12-16 15:06 | NUR ---
DISCHARGE SUMMARY PT POD #2 FOR I&D TO R FOOT. ELKE WRAP DRESSING IN PLACE AND CDI. INSTRUCTED TO FOLLOW UP WITH PODIATRY. NO C/O PAIN THIS SHIFT AND PT IS ABLE TO AMBULATE WHILE NOT BEARING WEIGHT ON HIS R FOOT. VSS. DISCHARGED HOME.
== END 2021-12-16 15:00 | disposition home or self-care (01) | DRG 496 ==
LOC: ER 15:54 → SURS 15:55
PROVIDERS: Emergency Medicine; Internal Medicine; Physician Assistant; Podiatrist Foot & Ankle Surgery; ADMIT Internal Medicine
PROC: 0J9Q0ZZ Drainage of Right Foot Subcutaneous Tissue and Fascia, Open Approach (ICD-10-PCS; 2021-12-14)
PROC: 0SPF0JZ Removal of Synthetic Substitute from Right Ankle Joint, Open Approach (ICD-10-PCS; principal; 2021-12-14 16:30)
DX: T84.59XA Infection and inflammatory reaction due to other internal joint prosthesis, initial encounter (principal); L02.415 Cutaneous abscess of right lower limb; L03.115 Cellulitis of right lower limb; M86.8X7 Other osteomyelitis, ankle and foot; R65.10 Systemic inflammatory response syndrome (SIRS) of non-infectious origin without acute organ dysfunction; Z20.822 Contact with and (suspected) exposure to COVID-19; B95.5 Unspecified streptococcus as the cause of diseases classified elsewhere; E11.65 Type 2 diabetes mellitus with hyperglycemia; I10 Essential (primary) hypertension; E11.21 Type 2 diabetes mellitus with diabetic nephropathy; N18.30 Chronic kidney disease, stage 3 unspecified; D63.1 Anemia in chronic kidney disease; F32.A Depression, unspecified; I25.10 Atherosclerotic heart disease of native coronary artery without angina pectoris; I25.2 Old myocardial infarction; F17.210 Nicotine dependence, cigarettes, uncomplicated; Z90.49 Acquired absence of other specified parts of digestive tract; Z79.899 Other long term (current) drug therapy; Z88.8 Allergy status to other drugs, medicaments and biological substances; Z79.4 Long term (current) use of insulin; Z71.6 Tobacco abuse counseling; Z79.82 Long term (current) use of aspirin; Z79.02 Long term (current) use of antithrombotics/antiplatelets; Y79.2 Prosthetic and other implants, materials and accessory orthopedic devices associated with adverse incidents
CPT/HCPCS: 0241U; 36415; 73701; 80048; 80053; 80202; 82947; 83605; 85025; 86140; 87040; 87070; 87075; 87076; 87205; 88305; 88311; 93005; 93010; 96365-59; 96375-59; 97116; 97161; 99285-25; A9270; J0360; J0692; J1100; J1644; J1815; J2250; J2370; J2405; J2543; J2704; J3010; J3370; J7030; J7060; J7120; Q9967

== ENCOUNTER 2022-02-22 17:20 | Inpatient (IN) | payer OTHER ==
[~2022-02-22] VITALS: Ht 172.7 cm; Wt 98.5 kg
[~2022-02-22 17:20] MED LIST changes: +HUMALOG KW100 UNIT/1 SC; +VISBIOME 112.51 EACH PO; +Veetids 500500 MG PO
[2022-02-22 19:03] LABS: BASOPHILS ABSOLUTE AUTO 0.07 K/mm3 (0.00-0.23); BASOPHILS PERCENT AUTO 1 % (0-2); EOSINOPHILS PERCENT AUTO 1 % (0-6); Hematocrit 44.2 % (37.0-53.0); Hemoglobin 14.6 g/dL (13.5-17.5); IMMATURE GRAN ABSOLUTE AUTO 0.16 K/mm3 (0.00-0.10); IMMATURE GRAN PERCENT AUTO 1 % (0-1); LYMPHOCYTES ABSOLUTE AUTO 1.55 K/mm3 (0.84-5.20); LYMPHOCYTES PERCENT AUTO 13 % (21-46); MONOCYTES PERCENT AUTO 6 % (4-13); Mean Corpuscular HGB 28.5 pg (26.0-34.0); Mean Corpuscular Volume 86 fL (80-100); NEUTROPHILS PERCENT AUTO 79 % (41-73); Platelet Count 360 K/mm3 (150-400); RDW Coefficient Variation 13.4 % (11.7-14.2); RDW Standard Deviation 41.9 fL (35.1-46.3); Red Blood Cell Count 5.13 M/mm3 (4.30-5.90); White Blood Cell Count 11.98 K/mm3 (4.00-11.30)
[2022-02-22] MEDS ORDERED: PANT20 (19:13)
[2022-02-22] MEDS ORDERED: HYDCHL25 PO ×2 (19:13)
[2022-02-22] MEDS ORDERED: PANT20 PO ×2 (19:13)
[2022-02-22] MEDS ORDERED: LOSA25 PO ×2 (19:14)
[2022-02-22 19:25] LABS: Albumin, Blood 3.3 g/dL (3.4-5.0); Albumin/Globulin Ratio 0.8 (0.8-1.8); Bilirubin, Total 0.8 mg/dL (0.1-1.0); Bun/Creatinine Ratio 19.2 (12.0-20.0); Calcium, Blood 9.3 mg/dL (8.5-10.1); Creatinine, Blood 3.02 mg/dL (0.60-1.20); Globulin, Blood 4.2 g/dL (2.2-4.0); Potassium, Blood 4.5 mmol/L (3.5-5.5); Total Protein, Blood 7.5 g/dL (6.4-8.2)
[2022-02-22 20:17] LABS: Influenza A, PCR NEGATIVE (NEGATIVE); Influenza B, PCR NEGATIVE (NEGATIVE); Resp Syncytial Virus, PCR NEGATIVE (NEGATIVE); SARS-Cov-2 (COVID-19) PCR, MMC NEGATIVE (NEGATIVE)
[2022-02-22 23:07] LABS: Source, Urine Clean Catch
[2022-02-22 23:13] LABS: Bilirubin, Urine Neg (Neg); Blood, Urine Neg (Neg); Glucose Qualitative, Urine 4+ (Neg); Ketones, Urine 1+ (Neg); Leukocyte Esterase, Urine Neg (Neg); Nitrite, Urine Neg (Neg); Protein, Urine 3+ (Neg); Urobilinogen, Urine NORM (Normal)
[2022-02-22 23:19] LABS: Appearance, Urine Clear (Clear); Color, Urine Yellow (P-Yellow)
[2022-02-22 23:21] LABS: Red Blood Cells, Urine 0-2 /hpf (0-2); White Blood Cells, Urine 0-2 /hpf (0-5)
[2022-02-22 23:22] LABS: Amorphous Light (0-Heavy); Bacteria Mod /hpf; Squamous Epithelial Cells Not Seen /hpf (Few)
[2022-02-23 06:27] LABS: BASOPHILS ABSOLUTE AUTO 0.06 K/mm3 (0.00-0.23); BASOPHILS PERCENT AUTO 1 % (0-2); EOSINOPHILS ABSOLUTE AUTO 0.26 K/mm3 (0.00-0.68); EOSINOPHILS PERCENT AUTO 4 % (0-6); Hematocrit 39.3 % (37.0-53.0); Hemoglobin 13.2 g/dL (13.5-17.5); IMMATURE GRAN PERCENT AUTO 1 % (0-1); LYMPHOCYTES PERCENT AUTO 20 % (21-46); MONOCYTES ABSOLUTE AUTO 0.55 K/mm3 (0.16-1.47); MONOCYTES PERCENT AUTO 8 % (4-13); Mean Corpuscular HGB 28.9 pg (26.0-34.0); Mean Corpuscular HGB Conc 33.6 g/dL (31.5-36.5); Mean Corpuscular Volume 86 fL (80-100); Mean Platelet Volume 10.7 fL (9.1-12.4); NEUTROPHILS ABSOLUTE AUTO 4.78 K/mm3 (1.96-9.15); NEUTROPHILS PERCENT AUTO 67 % (41-73); Platelet Count 273 K/mm3 (150-400); RDW Coefficient Variation 13.4 % (11.7-14.2); RDW Standard Deviation 41.4 fL (35.1-46.3); Red Blood Cell Count 4.57 M/mm3 (4.30-5.90); White Blood Cell Count 7.15 K/mm3 (4.00-11.30)
[2022-02-23 06:40] LABS: Albumin, Blood 2.7 g/dL (3.4-5.0); Albumin/Globulin Ratio 0.8 (0.8-1.8); Bilirubin, Total 0.7 mg/dL (0.1-1.0); Bun/Creatinine Ratio 20.5 (12.0-20.0); Calcium, Blood 8.3 mg/dL (8.5-10.1); Creatinine, Blood 2.58 mg/dL (0.60-1.20); Globulin, Blood 3.5 g/dL (2.2-4.0); Total Protein, Blood 6.2 g/dL (6.4-8.2)
--- NOTE | 2022-02-23 07:07 | NUR ---
SHIFT SUMMARY PT IS ALERT AND ORIENTED X4. THERE HAVE BEEN NO ACUTE CHANGES T/O THE NIGHT. HE DENIES CHEST PAIN/PRESSURE OR SOB. PT'S VITALS HAVE BEE STABLE AND IS ON ROOM AIR WITH SATS ABOVE 92%. PT IS USING URINAL. CALL LIGHT IS WITHIN REACH.
[2022-02-23 14:55] LABS: Albumin, Blood 2.7 g/dL (3.4-5.0); Anion Gap 11 mmol/L (6-16); Blood Urea Nitrogen 53 mg/dL (8-24); Bun/Creatinine Ratio 20.8 (12.0-20.0); CO2, Blood 19 mmol/L (21-32); Chloride, Blood 105 mmol/L (98-108); Creatinine, Blood 2.55 mg/dL (0.60-1.20); Glomerular Filtration Rate 31 (60-); Glucose, Blood 239 mg/dL (70-99); Phosphorus, Blood 3.1 mg/dL (2.5-4.9); Potassium, Blood 4.3 mmol/L (3.5-5.5); Sodium, Blood 135 mmol/L (136-145)
--- NOTE | 2022-02-23 17:51 | NUR ---
SHIFT SUMMARY PT HAS BEEN RESTING IN ROOM. PT WAS UP TO THE RESTROOM ON MULTIPLE OCCASIONS BY STAND-BY ASSIST. BLOOD GLUCOSE LEVELS EXCEEDED 400mg/dL THIS AM, BY THIS EVENING THEY HAD FALLEN TO 186mg/dL. THIS MORNING SBP WAS MEASURED 167 AND DECREASED TO 120 THIS AFTERNOON. HEART RATE, TEMPERATURE, AND SPO2 REMAINED STABLE AND NORMAL. PT TOOK A SHOWER UNASSISTED WITH NO ADVERSE EVENTS AND STATED THAT THEY EXPERIENCED NO EPISODES OF DIZZINESS/LIGHTHEADEDNESS.
--- NOTE | 2022-02-24 05:43 | NUR ---
SHIFT SUMMARY PT IS ALERT AND ORIENTED X4. THERE HAVE BEEN NO ACUTE CHANGES T/O THE NIGHT. VITALS ARE STABLE AND PT REMAINS ON ROOM AIR WITH SATS ABOVE 92%. HE HAS BEEN ABLE TO GO TO THE BATHROOM. HE DENIES CHEST PAIN/PRESSURE OR SOB. HE DENIES FEELING DIZZY. CALL LIGHT IS WITHIN REACH.
--- NOTE | 2022-02-24 15:07 | NUR ---
DISCHARGE NOTE: ASSUMED CARE OF PT AT 0700. PT IS ALERT AND ORIENTED X 4. PT DENIED ANY CHEST T/O SHIFT, NO RESP DISTRESS NOTED. PT REMAINED ON ROOM AIR. PT IN SR WITH HR IN THE 70'S, VITALS STABLE. PT AMBULATED IND WITH NO ISSUES. DISCHARGE PAPERWORK REVEIWED WITH PATIENT, PT EAGER TO LEARN. IV REMOVED, ALL BELONGININGS RETURNED TO PT. PT TAKEN TO THE EXIT BY WHEELCHAIR AT 1449.
[2022-03-15] MEDS ORDERED: INSULIN LI100 UNIT/6 (15:22)
== END 2022-02-24 14:29 | disposition home or self-care (01) | DRG 682 ==
LOC: ER 17:20 → PCU 17:21
PROVIDERS: Emergency Medicine; Internal Medicine; Student in an Organized Health Care Education/Training Program; ADMIT Internal Medicine
DX: N17.9 Acute kidney failure, unspecified (principal); R65.11 Systemic inflammatory response syndrome (SIRS) of non-infectious origin with acute organ dysfunction; E87.1 Hypo-osmolality and hyponatremia; E87.2 Acidosis; I25.10 Atherosclerotic heart disease of native coronary artery without angina pectoris; E11.65 Type 2 diabetes mellitus with hyperglycemia; E11.22 Type 2 diabetes mellitus with diabetic chronic kidney disease; I12.9 Hypertensive chronic kidney disease with stage 1 through stage 4 chronic kidney disease, or unspecified chronic kidney disease; N18.30 Chronic kidney disease, stage 3 unspecified; Z20.822 Contact with and (suspected) exposure to COVID-19; I95.1 Orthostatic hypotension; F32.A Depression, unspecified; D63.1 Anemia in chronic kidney disease; E11.40 Type 2 diabetes mellitus with diabetic neuropathy, unspecified; E78.00 Pure hypercholesterolemia, unspecified; F17.210 Nicotine dependence, cigarettes, uncomplicated; Z90.49 Acquired absence of other specified parts of digestive tract; I25.2 Old myocardial infarction; Z87.81 Personal history of (healed) traumatic fracture; Z98.890 Other specified postprocedural states; Z87.01 Personal history of pneumonia (recurrent); Z88.8 Allergy status to other drugs, medicaments and biological substances; Z79.4 Long term (current) use of insulin; Z79.02 Long term (current) use of antithrombotics/antiplatelets; Z79.899 Other long term (current) drug therapy; Z86.19 Personal history of other infectious and parasitic diseases; Z79.82 Long term (current) use of aspirin; Z87.39 Personal history of other diseases of the musculoskeletal system and connective tissue; Z79.2 Long term (current) use of antibiotics
CPT/HCPCS: 0241U; 36415; 36430; 71045; 80053; 80069; 81001; 82947; 83036; 83605; 83880; 84484; 85025; 85651; 86141; 87040; 93005; 93010; 94760; 99285-25; A9270; C9113; J1815; J7030; J7040

== ENCOUNTER 2022-03-06 15:21 | Inpatient (IN) | payer OTHER ==
[~2022-03-06] VITALS: Ht 172.7 cm; Wt 96.6 kg
[~2022-03-06 15:21] MED LIST changes: +LOSA25 PO; +PANT20; +PANT20 PO
[2022-03-06 16:07] LABS: BASOPHILS ABSOLUTE AUTO 0.06 K/mm3 (0.00-0.23); BASOPHILS PERCENT AUTO 1 % (0-2); EOSINOPHILS ABSOLUTE AUTO 0.14 K/mm3 (0.00-0.68); EOSINOPHILS PERCENT AUTO 1 % (0-6); Hematocrit 39.8 % (37.0-53.0); Hemoglobin 13.5 g/dL (13.5-17.5); IMMATURE GRAN ABSOLUTE AUTO 0.15 K/mm3 (0.00-0.10); IMMATURE GRAN PERCENT AUTO 1 % (0-1); LYMPHOCYTES ABSOLUTE AUTO 1.79 K/mm3 (0.84-5.20); LYMPHOCYTES PERCENT AUTO 15 % (21-46); MONOCYTES ABSOLUTE AUTO 0.73 K/mm3 (0.16-1.47); MONOCYTES PERCENT AUTO 6 % (4-13); Mean Corpuscular HGB 28.7 pg (26.0-34.0); Mean Corpuscular HGB Conc 33.9 g/dL (31.5-36.5); Mean Corpuscular Volume 85 fL (80-100); Mean Platelet Volume 10.6 fL (9.1-12.4); NEUTROPHILS ABSOLUTE AUTO 9.36 K/mm3 (1.96-9.15); NEUTROPHILS PERCENT AUTO 77 % (41-73); Platelet Count 420 K/mm3 (150-400); RDW Coefficient Variation 13.8 % (11.7-14.2); RDW Standard Deviation 42.7 fL (35.1-46.3); White Blood Cell Count 12.23 K/mm3 (4.00-11.30)
[2022-03-06 17:28] LABS: Albumin, Blood 2.9 g/dL (3.4-5.0); Albumin/Globulin Ratio 0.7 (0.8-1.8); Bilirubin, Total 0.6 mg/dL (0.1-1.0); Bun/Creatinine Ratio 22.2 (12.0-20.0); Calcium, Blood 9.2 mg/dL (8.5-10.1); Creatinine, Blood 2.48 mg/dL (0.60-1.20); Globulin, Blood 4.1 g/dL (2.2-4.0); Potassium, Blood 4.6 mmol/L (3.5-5.5)
[2022-03-06] MEDS ORDERED: FAMO20 PO ×2 (18:09)
[2022-03-06 19:19] LABS: Anti-Xa UFH, PHA Monitoring <0.10 IU/mL; International Normalized Ratio 0.95
[2022-03-06 20:27] LABS: Influenza A, PCR NEGATIVE (NEGATIVE); Influenza B, PCR NEGATIVE (NEGATIVE); Resp Syncytial Virus, PCR NEGATIVE (NEGATIVE); SARS-Cov-2 (COVID-19) PCR, MMC NEGATIVE (NEGATIVE)
--- NOTE | 2022-03-06 21:15 | NUR ---
2100 PT ARRIVED TO ROOM PCU 11 VIA GURNEY FROM THE EMERGENCY DEPARTMENT ACCOMPANIED BY ER STAFF AND WITH HEPARIN INFUSING INTO PERIPHERAL IV TO RIGHT FOREARM. MR. VASQUEZ DISCLOSED THE FOLLOWING DURING HIS ADMISSION ASSESSMENT: - HE IS HOMELESS AND HAS BEEN FOR SEVERAL WEEKS NOW, BUT PROVIDES CONFLICTING TIME FRAMES RANGING FROM 2 WEEKS TO 2 MONTHS DURING THE INITIAL ASSESSMENT INTERVIEW. - HE REPORTS THAT HE HAS NOT BEEN TAKING SOME OF HIS PRESCRIPTION MEDICATIONS FOR THE PAST TWO WEEKS DUE TO NOT BEING ABLE TO REFILL THE PRESCRIPTIONS BECAUSE OF LACK OF FINANCIAL RESOURCES TO DO SO AND LOSS OF PRIMARY CARE PHYSICIAN. PT STATES THAT HE HAS AN APPOINTMENT NEXT WEEK TO ESTABLISH A NEW PCP. HE REPORTS NOT HAVING TAKEN HIS INSULIN GLARGINE IN AT LEAST 6 WEEKS AND OTHER MEDICATIONS IN 2 WEEKS OR MORE. PT STATES THIS IS DUE TO LACK OF ACCESS TO FUNDS AND TRANSPORTATION. - PT REPORTS THE HE DOES HAVE FAMILY AND FRIENDS IN THE AREA BUT LIVING WITH THEM IS NOT AN OPTION. HE STATES THAT HE HAS BEEN SLEEPING OUT IN THE ELEMENTS AND SOMETIMES "UNDER THE U-HAUL." TODAY HE WAS AT THE LIBRARY TRYING TO KEEP COOL WHEN THE ONSET OF CHEST PAIN OCCURRED. - PT REPORTS THAT HE IS NOT ABLE TO WORK DUE TO CHANGES MADE BY THE CURRENT GOVERNOR OF THE STATE OF [place] WHICH REQUIRES THAT ANYONE WHO WANTS TO WORK MUST HAVE AN ACTIVE WELL PULLER HEAD LICENSE. HE REPORTS THAT HIS LICENSE WAS SUSPENDED DUE TO FAILURE TO PAY CHILD SUPPORT. I ADVISED HIM THAT I AM NOT FAMILIAR WITH [place] LAW, AND THAT HE MAY WANT TO LOOK INTO THIS RESTRICTION A BIT FURTHER A WELL PULLER HEAD LICENSE IS GENERALLY NOT A REQUIREMENT FOR ALL JOBS ALTHOUGH A GOVERNMENT ISSUED ID IS A REQUIREMENT TO PROVE ELIGIBILITY/AUTHORIZATION TO WORK IN THE [place]. CONSIDERING THE ABOVE, I ASKED THE PATIENT IF HE WOULD LIKE TO SPEAK WITH A MEMBER OF THE CASE MANAGEMENT TEAM TO DETERMINE WHAT RESOURCES MAY BE AVAILABLE TO HIM WITH RESPECT TO HOUSING AND FINANCIAL ASSISTANCE. MR. VASQUEZ DID STATE THAT HE IS OPEN TO SAID ASSISTANCE. ORDER PLACED FOR CARE MANAGEMENT/POLICYHOLDER INFORMATION CLERK CONSULT.
[2022-03-06] MEDS ORDERED: LOSA25 PO ×2 (22:19)
[2022-03-07 01:28] LABS: BASOPHILS ABSOLUTE AUTO 0.05 K/mm3 (0.00-0.23); BASOPHILS PERCENT AUTO 1 % (0-2); EOSINOPHILS ABSOLUTE AUTO 0.25 K/mm3 (0.00-0.68); EOSINOPHILS PERCENT AUTO 3 % (0-6); Hematocrit 37.2 % (37.0-53.0); Hemoglobin 12.3 g/dL (13.5-17.5); IMMATURE GRAN ABSOLUTE AUTO 0.13 K/mm3 (0.00-0.10); IMMATURE GRAN PERCENT AUTO 1 % (0-1); LYMPHOCYTES ABSOLUTE AUTO 1.81 K/mm3 (0.84-5.20); LYMPHOCYTES PERCENT AUTO 20 % (21-46); MONOCYTES ABSOLUTE AUTO 0.73 K/mm3 (0.16-1.47); MONOCYTES PERCENT AUTO 8 % (4-13); Mean Corpuscular HGB 28.4 pg (26.0-34.0); Mean Corpuscular HGB Conc 33.1 g/dL (31.5-36.5); Mean Corpuscular Volume 86 fL (80-100); Mean Platelet Volume 10.2 fL (9.1-12.4); NEUTROPHILS ABSOLUTE AUTO 6.29 K/mm3 (1.96-9.15); NEUTROPHILS PERCENT AUTO 68 % (41-73); Platelet Count 309 K/mm3 (150-400); RDW Coefficient Variation 13.9 % (11.7-14.2); RDW Standard Deviation 43.5 fL (35.1-46.3); Red Blood Cell Count 4.33 M/mm3 (4.30-5.90); White Blood Cell Count 9.26 K/mm3 (4.00-11.30)
[2022-03-07 01:42] LABS: Albumin, Blood 2.5 g/dL (3.4-5.0); Anion Gap 8 mmol/L (6-16); Blood Urea Nitrogen 57 mg/dL (8-24); CO2, Blood 23 mmol/L (21-32); Calcium, Blood 8.3 mg/dL (8.5-10.1); Chloride, Blood 107 mmol/L (98-108); Creatinine, Blood 2.48 mg/dL (0.60-1.20); Glomerular Filtration Rate 32 (60-); Glucose, Blood 178 mg/dL (70-99); Magnesium, Blood 2.6 mg/dL (1.6-2.4); Phosphorus, Blood 4.8 mg/dL (2.5-4.9); Potassium, Blood 3.8 mmol/L (3.5-5.5); Sodium, Blood 138 mmol/L (136-145); Triglycerides 320 mg/dL (30-160)
--- NOTE | 2022-03-07 07:33 | NUR ---
NO ACUTE EVENTS OVERNIGHT LAST NIGHT. HEPARIN DRIP INFUSING AT 14 UNITS/KG/HR BASED UPON AN ADJUSTED WEIGHT OF 82 KG. NO COMPLAINTS OF CHEST PAIN SINCE ARRIVING AT 2100 LAST NIGHT. CARDIOLOGY CONSULT CALLED.
--- NOTE | 2022-03-07 17:19 | NUR ---
SHIFT SUMMARY PT AXO, PLEASANT AND COOPERATIVE WITH CARE. VSS THOUGH HTN NOTED. CBG ACHS, SEE RESULTS, MEDICATED PER EMAR. PT DENIES PAIN, SOB AND NV. IV PATENT AND INFUSING PER EMAR WITH HEPARIN GTT. CADIOLOGY CONSULT, SEE NOTE. PT DENIES CHEST PAIN. BED IN LOW POSITION, CALL LIGHT WITHIN REACH.
--- NOTE | 2022-03-08 00:50 | NUR ---
PT ON HEAPRIN DRIP. SNEEZED AND NOTICED SOME BLOOD ON THED TISSUE WHEN HE BLEW HIS NOSE. ADDITIONAL TISSUES PROVIDED. BLEEDING WAS SCANT AND STOPPED WITHIN LEDSS THAN 2 MINUTES. WILL CONTINUE TO MONITOR CONSIDERING CURRENT ANTICOAGULATION THERAPY.
--- NOTE | 2022-03-08 01:02 | NUR ---
CALL TO PHARMD REGARDING HEPARIN ASSAY RESULT OF 0.55. CONFIRMED THAT THIS IS WITHIN THE THERAPEUTIC RANGE AND THAT NO CHANGE IS TO BE MADE TO THE HEPARIN DOSE RATE AT THIS TIME.
--- NOTE | 2022-03-08 01:14 | NUR ---
CLARIFIIED WITH ANDRY HAAS THAT THE NEXT HEPARIN ASSAY IS TO BE DRAWN AT 1000 VS IN 6 HOURS OR WITH TOMORROW'S AM LABS. PER WALDO, ALTHOUGH THE PATIENT HAS HAD TWO ASSAYS WITHIN THERAPEUTIC RANGE, SHE DOES NOT WANT TO WAIT UNTIL AM LABS ON 03/09/22 BEFORE RECHECKING IT. NEXT ASSAY AT 1000 TODAY
[2022-03-08 03:47] LABS: BASOPHILS ABSOLUTE AUTO 0.03 K/mm3 (0.00-0.23); BASOPHILS PERCENT AUTO 1 % (0-2); EOSINOPHILS ABSOLUTE AUTO 0.14 K/mm3 (0.00-0.68); EOSINOPHILS PERCENT AUTO 2 % (0-6); Hematocrit 39.6 % (37.0-53.0); Hemoglobin 13.1 g/dL (13.5-17.5); IMMATURE GRAN ABSOLUTE AUTO 0.08 K/mm3 (0.00-0.10); IMMATURE GRAN PERCENT AUTO 1 % (0-1); LYMPHOCYTES ABSOLUTE AUTO 1.73 K/mm3 (0.84-5.20); LYMPHOCYTES PERCENT AUTO 27 % (21-46); MONOCYTES ABSOLUTE AUTO 0.66 K/mm3 (0.16-1.47); MONOCYTES PERCENT AUTO 10 % (4-13); Mean Corpuscular HGB 28.5 pg (26.0-34.0); Mean Corpuscular HGB Conc 33.1 g/dL (31.5-36.5); Mean Corpuscular Volume 86 fL (80-100); Mean Platelet Volume 10.2 fL (9.1-12.4); NEUTROPHILS ABSOLUTE AUTO 3.83 K/mm3 (1.96-9.15); NEUTROPHILS PERCENT AUTO 59 % (41-73); Platelet Count 281 K/mm3 (150-400); RDW Standard Deviation 44.2 fL (35.1-46.3); Red Blood Cell Count 4.59 M/mm3 (4.30-5.90); White Blood Cell Count 6.47 K/mm3 (4.00-11.30)
[2022-03-08 04:09] LABS: Bun/Creatinine Ratio 24.3 (12.0-20.0); Calcium, Blood 8.3 mg/dL (8.5-10.1); Creatinine, Blood 1.89 mg/dL (0.60-1.20); Potassium, Blood 4.5 mmol/L (3.5-5.5)
--- NOTE | 2022-03-08 05:46 | NUR ---
PATIENT'S BLOOD SUGARS REMAIN ELEVATED, RANGING FROM 197 TO 295 IN PAST 24 HOURS. PATIENT IS HYPERTENSIVE WITH BLOOD PRESSURES IN THE 150s-160s / 90S. EDUCATION PROVIDED TO PATIENT REGARDING IMPORTANCE OF COMPLIANCE WITH TAKING MEDICATIONS PRESCRIBED WELL THE PURPOSE, BENEFITS AND SIDE EFFECTS OF COZAAR, IMDUR, LIPITOR, METOPROLOL AND PLAVIX. PATIENT DID HAVE A NOSEBLEED, WHICH OCCURRED FOLLOWING A SNEEZE, THAT RESOLVED QUICKLY. PT REMAINS CHEST FREE. HEPARIN ASSAY IS IN THERAPEUTIC RANGE X 2. NEXT ASSAY TO BE DRAWN AT 10:00. PER MD ANDRE'S NOTE, HEPARIN IS TO INFUSE FOR TOTAL OF 48 HOURS, WHICH WOULD BE UNTIL 19:08 TODAY (03/08/22). HEPARIN DRIP WAS INITIATED AT 19:09 ON 03/06/22. PT RECEIVED TOTAL OF 375 MG OF PLAVIX ON 03/07/22. PER NOTE, PLAVIX IS TO BE CONTINUED. WILL PASS ON TO DAY SHIFT RN THAT ORDER IS NEEDED FOR DAILY DOSE OF PLAVIX.
[2022-03-08] MEDS ORDERED: ATOR20 PO ×2 (13:37)
[2022-03-08] MEDS ORDERED: Amlodipine Bes2.5 MG PO ×2 (13:37)
[2022-03-08] MEDS ORDERED: METOPROLOL SUCC25 MG PO ×2 (13:38)
--- NOTE | 2022-03-08 16:56 | NUR ---
DISCHARGE NOTE: PATIENT WAS EDUCATED ON DISCHARGE INSTRUCTIONS. HE VERBALIZED UNDERSTANDING OF INSTRUCTIONS. IV WAS TAKEN OUT AND WNL. PATIENT HAS DENIED CHEST OR ARM PAIN THROUGHOUT SHIFT. BP IS SLIGHTLY ELEVATED BUT OTHERWISE VS ARE WNL AND IS ON RA. HE IS VOIDING AND TOLERATING PO INTAKE. HE IS INDEP. IN THE ROOM. PATIENT IS A&OX4. HE IS DRESSED AND HAS PERSONAL ITEMS IN THE ROOM GATHERED. PATIENT WILL BE WALKING OUT SO PATIENT STATED [facility] PERSCRIPTIONS WERE FA[facility]ED TO [email or web address] PATIENT WAS EDUCATED ON HOW IMPORTANT IT IS FOR HIM TO CONTINUE HIS MEDICATIONS AT HOME AND HE VERBALIZED THAT HE WILL CONTINUE TO HIS BEST ABILITY.
--- NOTE | 2022-03-08 17:43 | NUR ---
PATIENT HAS JUST FINISHED DINNER AND IS DISCHARGING. PATIENT WANTS TO WALK OUT. HIS DAD WILL BE PICKING HIM UP FROM [employer].
[2022-03-15] MEDS ORDERED: INSULIN LI100 UNIT/6 (15:22)
== END 2022-03-08 17:45 | disposition home or self-care (01) | DRG 281 ==
LOC: ER 15:21 → PCU 19:04
PROVIDERS: Physician Assistant; Student in an Organized Health Care Education/Training Program; ADMIT Internal Medicine
DX: I21.4 Non-ST elevation (NSTEMI) myocardial infarction (principal); M86.671 Other chronic osteomyelitis, right ankle and foot; I25.10 Atherosclerotic heart disease of native coronary artery without angina pectoris; N18.30 Chronic kidney disease, stage 3 unspecified; F32.A Depression, unspecified; I12.9 Hypertensive chronic kidney disease with stage 1 through stage 4 chronic kidney disease, or unspecified chronic kidney disease; E11.22 Type 2 diabetes mellitus with diabetic chronic kidney disease; Z20.822 Contact with and (suspected) exposure to COVID-19; E78.00 Pure hypercholesterolemia, unspecified; E11.40 Type 2 diabetes mellitus with diabetic neuropathy, unspecified; D63.1 Anemia in chronic kidney disease; F17.210 Nicotine dependence, cigarettes, uncomplicated; I25.2 Old myocardial infarction; Z88.8 Allergy status to other drugs, medicaments and biological substances; Z87.2 Personal history of diseases of the skin and subcutaneous tissue; Z90.49 Acquired absence of other specified parts of digestive tract; Z87.01 Personal history of pneumonia (recurrent); Z87.81 Personal history of (healed) traumatic fracture; Z98.890 Other specified postprocedural states; Z79.2 Long term (current) use of antibiotics; Z79.4 Long term (current) use of insulin; Z79.82 Long term (current) use of aspirin; Z79.899 Other long term (current) drug therapy
CPT/HCPCS: 0241U; 36415; 71045; 73610; 76770; 80048; 80053; 80069; 82947; 83735; 83880; 84478; 84484; 85025; 85520; 85610; 85730; 93005; 93010; 93306; 96365; 96366; 99285-25; A9270; J1644; J1815

== ENCOUNTER 2022-05-18 23:02 | Emergency (ER) | payer OTHER ==
[~2022-05-18] VITALS: Ht 172.7 cm; Wt 106.6 kg
[~2022-05-18 23:02] MED LIST changes: +ATOR20 PO; +Amlodipine Bes2.5 MG PO; +ESCI20 PO; +FAMO20 PO; +INSULIN LI100 UNIT/6; +METOPROLOL SUCC25 MG PO
[2022-05-18 23:28] LABS: BASOPHILS ABSOLUTE AUTO 0.06 K/mm3 (0.00-0.23); BASOPHILS PERCENT AUTO 1 % (0-2); EOSINOPHILS PERCENT AUTO 3 % (0-6); Hematocrit 41.7 % (37.0-53.0); Hemoglobin 13.6 g/dL (13.5-17.5); IMMATURE GRAN ABSOLUTE AUTO 0.16 K/mm3 (0.00-0.10); IMMATURE GRAN PERCENT AUTO 2 % (0-1); LYMPHOCYTES ABSOLUTE AUTO 2.82 K/mm3 (0.84-5.20); LYMPHOCYTES PERCENT AUTO 29 % (21-46); MONOCYTES ABSOLUTE AUTO 0.68 K/mm3 (0.16-1.47); MONOCYTES PERCENT AUTO 7 % (4-13); Mean Corpuscular HGB 28.9 pg (26.0-34.0); Mean Corpuscular HGB Conc 32.6 g/dL (31.5-36.5); Mean Corpuscular Volume 89 fL (80-100); Mean Platelet Volume 9.8 fL (9.1-12.4); NEUTROPHILS PERCENT AUTO 58 % (41-73); Platelet Count 437 K/mm3 (150-400); RDW Coefficient Variation 13.2 % (11.7-14.2); RDW Standard Deviation 43.5 fL (35.1-46.3); White Blood Cell Count 9.62 K/mm3 (4.00-11.30)
[2022-05-18 23:50] LABS: Albumin, Blood 3.1 g/dL (3.4-5.0); Albumin/Globulin Ratio 0.8 (0.8-1.8); Bilirubin, Total 0.4 mg/dL (0.1-1.0); Bun/Creatinine Ratio 24.6 (12.0-20.0); Creatinine, Blood 1.75 mg/dL (0.60-1.20); Globulin, Blood 3.9 g/dL (2.2-4.0); Potassium, Blood 4.1 mmol/L (3.5-5.5)
[2022-05-19 03:31] LABS: Influenza A, PCR NEGATIVE (NEGATIVE); Influenza B, PCR NEGATIVE (NEGATIVE); Resp Syncytial Virus, PCR NEGATIVE (NEGATIVE); SARS-Cov-2 (COVID-19) PCR, MMC NEGATIVE (NEGATIVE)
[2022-05-19 04:20] LABS: Source, Urine Clean Catch
[2022-05-19 04:48] LABS: Appearance, Urine Clear (Clear); Bilirubin, Urine Neg (Neg); Blood, Urine 1+ (Neg); Color, Urine Yellow (P-Yellow); Glucose Qualitative, Urine Neg (Neg); Ketones, Urine Neg (Neg); Leukocyte Esterase, Urine Neg (Neg); Nitrite, Urine Neg (Neg); Protein, Urine 4+ (Neg); Urobilinogen, Urine NORM (Normal)
[2022-05-19 05:22] LABS: Bacteria Few /hpf; Squamous Epithelial Cells Few /hpf (Few); White Blood Cells, Urine 0-2 /hpf (0-5)
[2022-05-19 05:23] LABS: Hyaline Casts 0-2 /lpf (0-2)
== END 2022-05-19 06:24 | disposition home or self-care (01) ==
LOC: ER 23:02
PROVIDERS: Emergency Medicine; Student in an Organized Health Care Education/Training Program
DX: E11.649 Type 2 diabetes mellitus with hypoglycemia without coma (principal); I25.2 Old myocardial infarction; F17.210 Nicotine dependence, cigarettes, uncomplicated; Z20.822 Contact with and (suspected) exposure to COVID-19; Z79.4 Long term (current) use of insulin
CPT/HCPCS: 0241U; 36415; 71045; 80053; 81001; 82947; 85025; 93005; 93010

== ENCOUNTER 2022-05-24 17:44 | Inpatient (IN) | payer OTHER ==
[~2022-05-24] VITALS: Ht 172.7 cm; Wt 94.1 kg
[~2022-05-24 17:44] MED LIST changes: -ATOR20 PO; -INSULIN LI100 UNIT/6
[2022-05-24 18:53] LABS: BASOPHILS ABSOLUTE AUTO 0.05 K/mm3 (0.00-0.23); BASOPHILS PERCENT AUTO 1 % (0-2); EOSINOPHILS ABSOLUTE AUTO 0.02 K/mm3 (0.00-0.68); EOSINOPHILS PERCENT AUTO 0 % (0-6); Hemoglobin 13.1 g/dL (13.5-17.5); IMMATURE GRAN ABSOLUTE AUTO 0.16 K/mm3 (0.00-0.10); IMMATURE GRAN PERCENT AUTO 2 % (0-1); LYMPHOCYTES PERCENT AUTO 7 % (21-46); MONOCYTES ABSOLUTE AUTO 0.39 K/mm3 (0.16-1.47); MONOCYTES PERCENT AUTO 4 % (4-13); Mean Corpuscular HGB 29.2 pg (26.0-34.0); Mean Corpuscular HGB Conc 33.6 g/dL (31.5-36.5); Mean Corpuscular Volume 87 fL (80-100); Mean Platelet Volume 10.2 fL (9.1-12.4); NEUTROPHILS ABSOLUTE AUTO 8.27 K/mm3 (1.96-9.15); NEUTROPHILS PERCENT AUTO 86 % (41-73); Platelet Count 422 K/mm3 (150-400); RDW Coefficient Variation 13.1 % (11.7-14.2); RDW Standard Deviation 41.5 fL (35.1-46.3); Red Blood Cell Count 4.49 M/mm3 (4.30-5.90); White Blood Cell Count 9.59 K/mm3 (4.00-11.30)
[2022-05-24 18:59] LABS: Albumin, Blood 2.7 g/dL (3.4-5.0); Albumin/Globulin Ratio 0.8 (0.8-1.8); Bilirubin, Total 0.7 mg/dL (0.1-1.0); Bun/Creatinine Ratio 22.3 (12.0-20.0); Calcium, Blood 8.8 mg/dL (8.5-10.1); Creatinine, Blood 2.02 mg/dL (0.60-1.20); Globulin, Blood 3.6 g/dL (2.2-4.0); Potassium, Blood 4.8 mmol/L (3.5-5.5); Total Protein, Blood 6.3 g/dL (6.4-8.2)
[2022-05-24 23:23] LABS: Cholesterol 210 mg/dL (50-200); HDL Cholesterol 42 mg/dL (>39); LDL/HDL RATIO 3.2; Low Density Lipoprotein Chol 133 mg/dL (0-110); Triglycerides 174 mg/dL (30-160); Very Low Density Lipoprot Chol 34 mg/dL (6-32)
[2022-05-25 00:20] LABS: International Normalized Ratio 0.98; Prothrombin Time Results 10.3 Sec (9.7-11.5)
[2022-05-25 02:29] LABS: BASOPHILS ABSOLUTE AUTO 0.07 K/mm3 (0.00-0.23); BASOPHILS PERCENT AUTO 1 % (0-2); EOSINOPHILS ABSOLUTE AUTO 0.29 K/mm3 (0.00-0.68); EOSINOPHILS PERCENT AUTO 3 % (0-6); Hematocrit 35.9 % (37.0-53.0); Hemoglobin 12.5 g/dL (13.5-17.5); IMMATURE GRAN ABSOLUTE AUTO 0.13 K/mm3 (0.00-0.10); IMMATURE GRAN PERCENT AUTO 2 % (0-1); LYMPHOCYTES ABSOLUTE AUTO 2.05 K/mm3 (0.84-5.20); LYMPHOCYTES PERCENT AUTO 23 % (21-46); MONOCYTES ABSOLUTE AUTO 0.72 K/mm3 (0.16-1.47); MONOCYTES PERCENT AUTO 8 % (4-13); Mean Corpuscular HGB Conc 34.8 g/dL (31.5-36.5); Mean Corpuscular Volume 86 fL (80-100); Mean Platelet Volume 9.9 fL (9.1-12.4); NEUTROPHILS ABSOLUTE AUTO 5.49 K/mm3 (1.96-9.15); NEUTROPHILS PERCENT AUTO 63 % (41-73); Platelet Count 401 K/mm3 (150-400); RDW Coefficient Variation 13.1 % (11.7-14.2); RDW Standard Deviation 41.1 fL (35.1-46.3); Red Blood Cell Count 4.17 M/mm3 (4.30-5.90); White Blood Cell Count 8.75 K/mm3 (4.00-11.30)
[2022-05-25 02:44] LABS: Calcium, Blood 8.3 mg/dL (8.5-10.1); Creatinine, Blood 2.21 mg/dL (0.60-1.20); Potassium, Blood 4.5 mmol/L (3.5-5.5)
--- NOTE | 2022-05-25 16:40 | NUR ---
ADMIT THIS RN ASSUMED CARE OF PT AT 1508. PT LYING IN BED, RESPONDING APPROPRIATELY. TEENA CHAWLA COMPLETED ADMISSION ASSESSMENT. PT DENIES CHEST PAIN OR PRESSURE. DENIES SOB. VSS. PT NPO, WAITING FOR CARDIOLOGY CONSULT. CARDIOLOGY IN TO SEE PT AND PT WILL GO IN FOR ANGIO TODAY. PT TO FUNERAL PRE ARRANGEMENT SPECIALIST AT 1620.
--- NOTE | 2022-05-25 18:40 | NUR ---
RETURN FROM COIN MACHINE MECHANIC PT RETURNED TO COIN MACHINE MECHANIC AROUND 1814. PT INTERACTING AND RESPONDING APPROPRIATELY. PT POSITIONING PER PROTOCOL AND ORDERS. VS; TEMP97.3, HR 70, RR 18, BP 158/91, AND O2 97% ON RA. NO OOZING, SWELLING, OR DISCOLORATION NOTED AT ACCESS SITE. ANGIOSEAL IN PLACE. WILL UPDATE ONCOMING RN.
--- NOTE | 2022-05-25 19:00 | NUR ---
ASSUMED CARE BEDSIDE REPORT RECEIVED. RIGHT GROIN SITE REVIEWED WITH OFFGOING RN, SITE WNL, NO BLEEDING, BRUISING, OR SWELLING NOTED. IVF NS INFUSING AT 100 ML/HR, PLAN TO SL AFTER THIS BAG COMPLETED. PT DENIES CP/PRESSURE, DENIES SOB/DYSPNEA, DENIES NEEDS AT THIS TIME, CALL LIGHT IN REACH.
--- NOTE | 2022-05-26 05:42 | NUR ---
PT AWAKE MOST OF THIS SHIFT, GOOD COMPLIANCE WITH MOVEMENT RESTRICTIONS, HOB ELEVATED AT 2300 AND RIGHT GROIN ACCESS SITE REMAINED STABLE, PT UP TO BATHROOM WITH STEADY GAIT AND TOLERATED WELL AT 0000, GROIN ACCESS SITE CONTINUES STABLE THROUGHOUT NOC. PT DENIES CP/PRESSURE THROUGHOUT SHIFT, CONTINUES IN SINUS RHYTHM, RATE 70-80S, IS NOTED TO INCREASE WITH UP TO AMBULATE TO MAX OF 110S. SATS CONTINUE TO MAINTAIN ON ROOM AIR AND PT DENIES SOB/DYSPNEA. HE REPORTS LIQUID BM X 2 THIS AM. WILL CONT TO MONITOR AND REPORT TO ONCOMING SHIFT.
--- NOTE | 2022-05-26 08:00 | NUR ---
RT GROIN SITE CLEAN, DRY, DRESSING INTACT, NO SIGN OF BLEEDING, NO HEMATOMA. PT DENIES PAIN TO SITE. DENIES CP OR SOB. VSS. NADN
[2022-05-26 08:30] LABS: Albumin, Blood 2.9 g/dL (3.4-5.0); Anion Gap 6 mmol/L (6-16); Blood Urea Nitrogen 37 mg/dL (8-24); Bun/Creatinine Ratio 18.8 (12.0-20.0); CO2, Blood 24 mmol/L (21-32); Calcium, Blood 8.7 mg/dL (8.5-10.1); Chloride, Blood 112 mmol/L (98-108); Creatinine, Blood 1.97 mg/dL (0.60-1.20); Glomerular Filtration Rate 42 (60-); Glucose, Blood 95 mg/dL (70-99); Phosphorus, Blood 3.6 mg/dL (2.5-4.9); Sodium, Blood 142 mmol/L (136-145)
--- NOTE | 2022-05-26 14:47 | NUR ---
DISCHARGE NOTE PT WAS ALERT AND ORIENTED X 4. THIS NURSE PROVIDED DISCHARGE INSTRUCTIONS INCLUDING NEED TO CARRY STENT CARD, FEMORAL ACCESS SITE CARE, MEDICATION DOSE ADJUSTMENTS, AND MEDICATIONS TO DISCONTINUE. R FEMORAL ACCESS SITE WAS COVERED W/ CHG DRESSING, NO APPARENT BLEEDING OR HEMATOMA. DISCHARGE PACKET AND EDUCATION GIVEN TO PT. IV IN RIGHT AC WAS REMOVED BY THIS RN. PT LEFT PCU APPROX. 1442 ESCORTED BY GRETTA LUNDY.
== END 2022-05-26 14:49 | disposition home or self-care (01) | DRG 247 ==
LOC: ER 17:44 → ERHOLD 23:16 → PCU 23:16
PROVIDERS: Emergency Medicine; Internal Medicine Cardiovascular Disease; ADMIT Family Medicine
PROC: 027035Z Dilation of Coronary Artery, One Artery with Two Drug-eluting Intraluminal Devices, Percutaneous Approach (ICD-10-PCS; principal; 2022-05-25)
PROC: 4A023N7 Measurement of Cardiac Sampling and Pressure, Left Heart, Percutaneous Approach (ICD-10-PCS; 2022-05-25)
PROC: B211YZZ Fluoroscopy of Multiple Coronary Arteries using Other Contrast (ICD-10-PCS; 2022-05-25)
PROC: B240ZZ3 Ultrasonography of Single Coronary Artery, Intravascular (ICD-10-PCS; 2022-05-25)
DX: I21.4 Non-ST elevation (NSTEMI) myocardial infarction (principal); N17.9 Acute kidney failure, unspecified; E87.1 Hypo-osmolality and hyponatremia; I25.10 Atherosclerotic heart disease of native coronary artery without angina pectoris; N18.30 Chronic kidney disease, stage 3 unspecified; F32.A Depression, unspecified; I10 Essential (primary) hypertension; E11.22 Type 2 diabetes mellitus with diabetic chronic kidney disease; D63.1 Anemia in chronic kidney disease; E11.42 Type 2 diabetes mellitus with diabetic polyneuropathy; E78.5 Hyperlipidemia, unspecified; F17.210 Nicotine dependence, cigarettes, uncomplicated; I24.9 Acute ischemic heart disease, unspecified; D75.839 Thrombocytosis, unspecified; E11.65 Type 2 diabetes mellitus with hyperglycemia; Z87.01 Personal history of pneumonia (recurrent); Z88.8 Allergy status to other drugs, medicaments and biological substances; Z91.048 Other nonmedicinal substance allergy status; Z79.899 Other long term (current) drug therapy; Z79.4 Long term (current) use of insulin; Z79.02 Long term (current) use of antithrombotics/antiplatelets; Z79.82 Long term (current) use of aspirin; Z87.81 Personal history of (healed) traumatic fracture; I25.2 Old myocardial infarction; Z98.890 Other specified postprocedural states; Z90.49 Acquired absence of other specified parts of digestive tract
CPT/HCPCS: 36415; 71046; 76937; 80048; 80053; 80061; 80069; 82947; 83036; 83880; 84484; 85025; 85347; 85520; 85610; 93005; 93010; 93308; 93454; 99152; 99153; A9270; C1725; C1760; C1769; C1874; C1887; C1894; C9600; J1644; J1815; J2250; J3010; J7030; J7050; Q9967

== ENCOUNTER 2022-06-03 22:23 | Inpatient (IN) | payer OTHER ==
[~2022-06-03] VITALS: Ht 172.7 cm; Wt 91.6 kg
[2022-06-03 23:11] LABS: BASOPHILS ABSOLUTE AUTO 0.05 K/mm3 (0.00-0.23); BASOPHILS PERCENT AUTO 1 % (0-2); EOSINOPHILS ABSOLUTE AUTO 0.16 K/mm3 (0.00-0.68); EOSINOPHILS PERCENT AUTO 2 % (0-6); Hemoglobin 13.5 g/dL (13.5-17.5); IMMATURE GRAN ABSOLUTE AUTO 0.14 K/mm3 (0.00-0.10); IMMATURE GRAN PERCENT AUTO 2 % (0-1); LYMPHOCYTES ABSOLUTE AUTO 1.06 K/mm3 (0.84-5.20); LYMPHOCYTES PERCENT AUTO 12 % (21-46); MONOCYTES ABSOLUTE AUTO 0.54 K/mm3 (0.16-1.47); MONOCYTES PERCENT AUTO 6 % (4-13); Mean Corpuscular HGB 29.4 pg (26.0-34.0); Mean Corpuscular HGB Conc 33.8 g/dL (31.5-36.5); Mean Corpuscular Volume 87 fL (80-100); NEUTROPHILS ABSOLUTE AUTO 6.74 K/mm3 (1.96-9.15); NEUTROPHILS PERCENT AUTO 78 % (41-73); Platelet Count 359 K/mm3 (150-400); RDW Coefficient Variation 13.1 % (11.7-14.2); RDW Standard Deviation 41.3 fL (35.1-46.3); Red Blood Cell Count 4.59 M/mm3 (4.30-5.90); White Blood Cell Count 8.69 K/mm3 (4.00-11.30)
[2022-06-03 23:30] LABS: Albumin, Blood 2.7 g/dL (3.4-5.0); Albumin/Globulin Ratio 0.7 (0.8-1.8); Bilirubin, Total 0.5 mg/dL (0.1-1.0); Bun/Creatinine Ratio 19.4 (12.0-20.0); Calcium, Blood 8.4 mg/dL (8.5-10.1); Creatinine, Blood 2.17 mg/dL (0.60-1.20); Globulin, Blood 3.8 g/dL (2.2-4.0); Potassium, Blood 4.7 mmol/L (3.5-5.5); Total Protein, Blood 6.5 g/dL (6.4-8.2)
[2022-06-04 05:26] LABS: Anti-Xa UFH, PHA Monitoring <0.10 IU/mL; International Normalized Ratio 0.99; Prothrombin Time Results 10.4 Sec (9.7-11.5)
[2022-06-04 06:23] LABS: Albumin, Blood 2.5 g/dL (3.4-5.0); Albumin/Globulin Ratio 0.7 (0.8-1.8); Bilirubin, Total 0.3 mg/dL (0.1-1.0); Bun/Creatinine Ratio 22.4 (12.0-20.0); Calcium, Blood 8.5 mg/dL (8.5-10.1); Creatinine, Blood 2.19 mg/dL (0.60-1.20); Globulin, Blood 3.5 g/dL (2.2-4.0); Potassium, Blood 4.4 mmol/L (3.5-5.5)
--- NOTE | 2022-06-04 10:46 | NUR ---
DR. CAR NOTIFIED OF CONSULT. SHE WILL SEE PT IN ICU.
--- NOTE | 2022-06-04 14:30 | NUR ---
RETURN FROM TECHNICAL DOCUMENT WRITER PT BACK TO ICU 16 FROM TECHNICAL DOCUMENT WRITER. PT IS DROWSEY, BUT AROUSABLE TO VERBAL STIMULI. PT WITH RIGHT FEMORAL ACCESS SITE. MANUAL PRESSURE HELD BY TECHNICAL DOCUMENT WRITER STAFF. SITE WITH DRESSING IN PLACE, NO OOZING OR HEMATOMA NOTED AT SITE. PT INSTRUCTED TO KEEP FLAT IN BED. PT ACKNOWLEDGES UNDERSTANDING. VSS. WILL CONTINUE TO MONITOR.
--- NOTE | 2022-06-04 17:26 | NUR ---
SHIFT SUMMARY NO ACUTE CHANGES THIS SHIFT. PT HAS REMAINED ALERT AND ORIENTED WHEN AWAKE. PT TAKEN TO MEMS ENGINEER THIS SHIFT, PT WITHOUT CATH INTERVENTIONS. PT REMAINS CHEST PAIN FREE. RIGHT FEMORAL ACCESS SITE IS C/D/I WITH OUT OOZING OR HEMATOMA. SITE IS TENDER TO PALPATION. VITAL SIGNS REMAIN STABLE. NS INFUSING AT 75 ML/HR. PT SITTING UP EATING MEAL TRAY AT THIS TIME. DISCUSSED DISCHARGE ORDERS WITH DR CAR. PT NOT READY FOR DISCHARGE YET, WILL REEVALUATE PT TOMORROW FOR DISCHARGE PER DR CAR. UPDATED PT ABOUT PLAN OF CARE. WILL CONTINUE TO MONITOR AND REPORT OFF TO ONCOMING RN.
[2022-06-05 03:52] LABS: BASOPHILS ABSOLUTE AUTO 0.03 K/mm3 (0.00-0.23); BASOPHILS PERCENT AUTO 0 % (0-2); EOSINOPHILS ABSOLUTE AUTO 0.18 K/mm3 (0.00-0.68); EOSINOPHILS PERCENT AUTO 2 % (0-6); Hematocrit 38.8 % (37.0-53.0); Hemoglobin 13.2 g/dL (13.5-17.5); IMMATURE GRAN ABSOLUTE AUTO 0.11 K/mm3 (0.00-0.10); IMMATURE GRAN PERCENT AUTO 1 % (0-1); LYMPHOCYTES ABSOLUTE AUTO 1.27 K/mm3 (0.84-5.20); LYMPHOCYTES PERCENT AUTO 12 % (21-46); MONOCYTES ABSOLUTE AUTO 0.88 K/mm3 (0.16-1.47); MONOCYTES PERCENT AUTO 9 % (4-13); Mean Corpuscular HGB 29.3 pg (26.0-34.0); Mean Corpuscular Volume 86 fL (80-100); Mean Platelet Volume 10.2 fL (9.1-12.4); NEUTROPHILS ABSOLUTE AUTO 7.85 K/mm3 (1.96-9.15); NEUTROPHILS PERCENT AUTO 76 % (41-73); Platelet Count 304 K/mm3 (150-400); RDW Coefficient Variation 13.1 % (11.7-14.2); RDW Standard Deviation 40.9 fL (35.1-46.3); White Blood Cell Count 10.32 K/mm3 (4.00-11.30)
[2022-06-05 04:15] LABS: Albumin, Blood 2.4 g/dL (3.4-5.0); Albumin/Globulin Ratio 0.7 (0.8-1.8); Bilirubin, Total 0.6 mg/dL (0.1-1.0); Bun/Creatinine Ratio 18.6 (12.0-20.0); Calcium, Blood 8.3 mg/dL (8.5-10.1); Creatinine, Blood 1.88 mg/dL (0.60-1.20); Globulin, Blood 3.4 g/dL (2.2-4.0); Potassium, Blood 4.5 mmol/L (3.5-5.5); Total Protein, Blood 5.8 g/dL (6.4-8.2)
--- NOTE | 2022-06-05 04:54 | NUR ---
SHIFT SUMMARY: PT. DID WELL OVERNIGHT, NO ACUTE EVENTS. PT. IS STILL ON RA AND VOIDED 2000 INTO URINAL. ALL VS HAVE BEEN WNL AND PT. HAS BEEN IN NSR IN THE 70S-80S AND HAS HAD NO COMPLAINTS OF CHEST PAIN.
--- NOTE | 2022-06-05 07:00 | NUR ---
ASSUME CARE: I have assume care of this patient.
--- NOTE | 2022-06-05 09:19 | NUR ---
DISCHARGE: Pt was given discharge instructions and education. He verbalized understanding and agreement. New medication list faxed to [facility]. Pt declined wheelchair; he ambulated out of unit without difficulty.
== END 2022-06-05 09:20 | disposition home or self-care (01) | DRG 281 ==
LOC: ER 22:23 → ICUW 06-04 04:35 → ERHOLD 06-04 04:35 → ICUW 06-04 04:35
PROVIDERS: Emergency Medicine; Family Medicine; ADMIT Internal Medicine
PROC: 4A023N7 Measurement of Cardiac Sampling and Pressure, Left Heart, Percutaneous Approach (ICD-10-PCS; principal; 2022-06-04)
PROC: B2111ZZ Fluoroscopy of Multiple Coronary Arteries using Low Osmolar Contrast (ICD-10-PCS; 2022-06-04)
DX: I21.4 Non-ST elevation (NSTEMI) myocardial infarction (principal); N17.9 Acute kidney failure, unspecified; I25.10 Atherosclerotic heart disease of native coronary artery without angina pectoris; Z28.21 Immunization not carried out because of patient refusal; Z91.14 Patient's other noncompliance with medication regimen; F32.A Depression, unspecified; I12.9 Hypertensive chronic kidney disease with stage 1 through stage 4 chronic kidney disease, or unspecified chronic kidney disease; N18.30 Chronic kidney disease, stage 3 unspecified; E11.22 Type 2 diabetes mellitus with diabetic chronic kidney disease; D63.1 Anemia in chronic kidney disease; F17.210 Nicotine dependence, cigarettes, uncomplicated; E78.5 Hyperlipidemia, unspecified; E11.65 Type 2 diabetes mellitus with hyperglycemia; E11.40 Type 2 diabetes mellitus with diabetic neuropathy, unspecified; I25.2 Old myocardial infarction; Z87.01 Personal history of pneumonia (recurrent); Z90.49 Acquired absence of other specified parts of digestive tract; Z98.890 Other specified postprocedural states; Z88.8 Allergy status to other drugs, medicaments and biological substances; Z79.02 Long term (current) use of antithrombotics/antiplatelets; Z79.4 Long term (current) use of insulin; Z79.899 Other long term (current) drug therapy
CPT/HCPCS: 36415; 71046; 76937; 80053; 82947; 83690; 83880; 84484; 85025; 85347; 85520; 85610; 93005; 93010; 93454; 96365; 96366; 99152; 99153; 99285-25; A9270; C1769; C1894; J0360; J1644; J2250; J3010; J7030; J7050; Q9967

== ENCOUNTER 2022-07-20 20:03 | Emergency (ER) | payer OTHER ==
[~2022-07-20] VITALS: Ht 172.7 cm; Wt 104.3 kg
[2022-07-20 22:04] LABS: Albumin, Blood 2.8 g/dL (3.4-5.0); Albumin/Globulin Ratio 0.7 (0.8-1.8); Bilirubin, Total 0.4 mg/dL (0.1-1.0); Bun/Creatinine Ratio 11.6 (12.0-20.0); Calcium, Blood 8.5 mg/dL (8.5-10.1); Creatinine, Blood 2.16 mg/dL (0.60-1.20); Globulin, Blood 4.1 g/dL (2.2-4.0); Total Protein, Blood 6.9 g/dL (6.4-8.2)
== END 2022-07-21 01:11 | disposition home or self-care (01) ==
LOC: ER 20:03
PROVIDERS: Student in an Organized Health Care Education/Training Program
DX: E11.649 Type 2 diabetes mellitus with hypoglycemia without coma (principal); E11.22 Type 2 diabetes mellitus with diabetic chronic kidney disease; I25.2 Old myocardial infarction; I25.10 Atherosclerotic heart disease of native coronary artery without angina pectoris; I12.9 Hypertensive chronic kidney disease with stage 1 through stage 4 chronic kidney disease, or unspecified chronic kidney disease; N18.30 Chronic kidney disease, stage 3 unspecified; E78.5 Hyperlipidemia, unspecified; F17.210 Nicotine dependence, cigarettes, uncomplicated; Z88.8 Allergy status to other drugs, medicaments and biological substances; Z79.82 Long term (current) use of aspirin; Z79.899 Other long term (current) drug therapy; Z79.4 Long term (current) use of insulin
CPT/HCPCS: 36415; 80053; 82947; 96374; 99285-25

== ENCOUNTER 2022-07-23 12:16 | Inpatient (IN) | payer OTHER ==
[~2022-07-23] VITALS: Ht 172.7 cm; Wt 93.4 kg
[2022-07-23 13:07] LABS: BASOPHILS ABSOLUTE AUTO 0.05 K/mm3 (0.00-0.23); BASOPHILS PERCENT AUTO 1 % (0-2); EOSINOPHILS ABSOLUTE AUTO 0.06 K/mm3 (0.00-0.68); EOSINOPHILS PERCENT AUTO 1 % (0-6); Hematocrit 40.6 % (37.0-53.0); Hemoglobin 13.3 g/dL (13.5-17.5); IMMATURE GRAN ABSOLUTE AUTO 0.05 K/mm3 (0.00-0.10); IMMATURE GRAN PERCENT AUTO 1 % (0-1); LYMPHOCYTES ABSOLUTE AUTO 0.65 K/mm3 (0.84-5.20); LYMPHOCYTES PERCENT AUTO 8 % (21-46); MONOCYTES ABSOLUTE AUTO 0.37 K/mm3 (0.16-1.47); MONOCYTES PERCENT AUTO 5 % (4-13); Mean Corpuscular HGB 28.7 pg (26.0-34.0); Mean Corpuscular HGB Conc 32.8 g/dL (31.5-36.5); Mean Corpuscular Volume 88 fL (80-100); Mean Platelet Volume 10.5 fL (9.1-12.4); NEUTROPHILS ABSOLUTE AUTO 6.94 K/mm3 (1.96-9.15); NEUTROPHILS PERCENT AUTO 86 % (41-73); Platelet Count 356 K/mm3 (150-400); RDW Coefficient Variation 13.2 % (11.7-14.2); RDW Standard Deviation 42.4 fL (35.1-46.3); Red Blood Cell Count 4.63 M/mm3 (4.30-5.90); White Blood Cell Count 8.12 K/mm3 (4.00-11.30)
[2022-07-23 13:33] LABS: Albumin, Blood 2.8 g/dL (3.4-5.0); Albumin/Globulin Ratio 0.8 (0.8-1.8); Bun/Creatinine Ratio 17.4 (12.0-20.0); Calcium, Blood 8.8 mg/dL (8.5-10.1); Creatinine, Blood 2.19 mg/dL (0.60-1.20); Globulin, Blood 3.7 g/dL (2.2-4.0); Potassium, Blood 4.9 mmol/L (3.5-5.5); Total Protein, Blood 6.5 g/dL (6.4-8.2)
--- NOTE | 2022-07-23 18:47 | NUR ---
PT ARRIVED TO ROOM PCU 15 APROX 1715. PT ABLE TO STAND AND AMBULATE TO BED, PT DENIES CHEST PAIN OR PRESSURE AT THIS TIME. 1800 CRITICAL TROPONIN RESULTS REPORTED FROM LAB, DR GREGORY NOTIFIED, NO NEW ORDERS. PT CONTINUES TO DENY CHEST PAIN OR PRESSURE. PT IS A&OX4, ABLE TO USE CALL LIGHT FOR NEEDS AND HAS NO COMPLAINTS AT THIS TIME. CALL LIGHT IN REACH, WILL CONTINUE TO MONITOR AND GIVE REPORT TO NOC SHIFT RN.
[2022-07-23 18:55] LABS: Anti-Xa UFH, PHA Monitoring <0.10 IU/mL; International Normalized Ratio 0.96; Prothrombin Time Results 10.1 Sec (9.7-11.5)
[2022-07-24 05:20] LABS: BASOPHILS ABSOLUTE AUTO 0.05 K/mm3 (0.00-0.23); BASOPHILS PERCENT AUTO 1 % (0-2); EOSINOPHILS ABSOLUTE AUTO 0.23 K/mm3 (0.00-0.68); EOSINOPHILS PERCENT AUTO 3 % (0-6); IMMATURE GRAN ABSOLUTE AUTO 0.04 K/mm3 (0.00-0.10); IMMATURE GRAN PERCENT AUTO 1 % (0-1); LYMPHOCYTES ABSOLUTE AUTO 1.74 K/mm3 (0.84-5.20); LYMPHOCYTES PERCENT AUTO 25 % (21-46); MONOCYTES ABSOLUTE AUTO 0.62 K/mm3 (0.16-1.47); MONOCYTES PERCENT AUTO 9 % (4-13); Mean Corpuscular HGB Conc 33.3 g/dL (31.5-36.5); Mean Corpuscular Volume 87 fL (80-100); Mean Platelet Volume 10.4 fL (9.1-12.4); NEUTROPHILS ABSOLUTE AUTO 4.27 K/mm3 (1.96-9.15); NEUTROPHILS PERCENT AUTO 62 % (41-73); Platelet Count 295 K/mm3 (150-400); RDW Coefficient Variation 13.2 % (11.7-14.2); RDW Standard Deviation 41.2 fL (35.1-46.3); Red Blood Cell Count 4.14 M/mm3 (4.30-5.90); White Blood Cell Count 6.95 K/mm3 (4.00-11.30)
[2022-07-24 05:35] LABS: Bun/Creatinine Ratio 16.6 (12.0-20.0); Calcium, Blood 8.5 mg/dL (8.5-10.1); Creatinine, Blood 2.23 mg/dL (0.60-1.20); Magnesium, Blood 2.1 mg/dL (1.6-2.4); Potassium, Blood 4.4 mmol/L (3.5-5.5)
--- NOTE | 2022-07-24 06:23 | NUR ---
CHURCH WORKER SUMMARY ASSUMED CARE OF THE PT AT 1900. HE IS ALERT AND ORIENTED X4, FOLLOWING DIRECTIONS. PT CONTINUES TO HAVE INCREASING TROPONINS, THOUGH THEY SEEM TO HAVE PEAKED THIS MORNING. HE DENIES CHEST PAIN/PRESSURE OR SHORTNESS OF BREATH. PT ON HEPARIN INFUSION MANAGED BY PHARMACY. HE HAS BEEN SINUS IN THE 70S THROUGHOUT THE SHIFT - NO ACUTE EVENTS ON TELE. BP HAS REMAINED STABLE, THOUGH PT IS SLIGHTLY HYPERTENSIVE THIS MORNING. OXYGEN SATURATION REMAINS >95% ON RA. HE HAS BEEN NPO SINCE MIDNIGHT PENDING CONSULT WITH CARDIOLOGY THIS AM. PT DID NOT SLEEP MUCH THIS SHIFT AND IS CURRENTLY SNORING IN BED.
--- NOTE | 2022-07-24 17:45 | NUR ---
ASSUMED CARE OF PT AT 0700. NO ACUTE CHANGES T/O THE SHIFT. DR VEGA CONSULTED ON PT AND HAS DECIDED ON MEDICAL MANAGEMENT, NO PRIVATE EQUITY ASSOCIATE AT THIS TIME. PT HAS DENIED CHEST PAIN T/O THE DAY. PT IS ABLE TO USE CALL LIGHT FOR NEEDS, CALL LIGHT IN REACH, WILL CONTINUE TO MONITOR AND GIVE REPORT TO NOC SHIFT RN.
[2022-07-25 04:20] LABS: BASOPHILS ABSOLUTE AUTO 0.04 K/mm3 (0.00-0.23); BASOPHILS PERCENT AUTO 1 % (0-2); EOSINOPHILS ABSOLUTE AUTO 0.21 K/mm3 (0.00-0.68); EOSINOPHILS PERCENT AUTO 3 % (0-6); Hematocrit 38.5 % (37.0-53.0); Hemoglobin 12.6 g/dL (13.5-17.5); IMMATURE GRAN ABSOLUTE AUTO 0.07 K/mm3 (0.00-0.10); IMMATURE GRAN PERCENT AUTO 1 % (0-1); LYMPHOCYTES ABSOLUTE AUTO 1.77 K/mm3 (0.84-5.20); LYMPHOCYTES PERCENT AUTO 21 % (21-46); MONOCYTES PERCENT AUTO 10 % (4-13); Mean Corpuscular HGB 28.2 pg (26.0-34.0); Mean Corpuscular HGB Conc 32.7 g/dL (31.5-36.5); Mean Corpuscular Volume 86 fL (80-100); Mean Platelet Volume 10.5 fL (9.1-12.4); NEUTROPHILS PERCENT AUTO 66 % (41-73); Platelet Count 309 K/mm3 (150-400); RDW Coefficient Variation 13.1 % (11.7-14.2); RDW Standard Deviation 40.9 fL (35.1-46.3); Red Blood Cell Count 4.47 M/mm3 (4.30-5.90); White Blood Cell Count 8.39 K/mm3 (4.00-11.30)
[2022-07-25 04:43] LABS: Bun/Creatinine Ratio 17.5 (12.0-20.0); Calcium, Blood 8.4 mg/dL (8.5-10.1); Creatinine, Blood 1.94 mg/dL (0.60-1.20); Potassium, Blood 4.5 mmol/L (3.5-5.5)
--- NOTE | 2022-07-25 06:32 | NUR ---
PT AWAKE UNTIL 4-5 AM AND EATING SNACKS ALL NIGHT, VSS, NO ISSUES OTHERWISE NOTED
[2022-07-25] MEDS ORDERED: Isosorbide Mono60 MG PO (11:28)
[2022-07-25] MEDS ORDERED: METO50ER PO (11:30)
--- NOTE | 2022-07-25 12:50 | NUR ---
PT DISCHARGED TO HOME, AMBULATORY, GAIT STEADY. DISCHARGE INFORMATION REVIEWED WITH PT INCLUDING FOLLOW UP APPOINTMENTS, EDUCATION AND MEDICATION LIST WITH NEW PRESCRIPTIONS. PT VERBALIZES UNDERSTANDING AND HAS NO QUESTIONS OR CONCERNS AT THIS TIME. ALL BELONGINGS SENT HOME WITH PT. NO FURTHER DISCHARGE NEEDS IDENTIFIED AT THIS TIME.
== END 2022-07-25 12:50 | disposition home or self-care (01) | DRG 282 ==
LOC: ER 12:16 → PCU 17:08
PROVIDERS: Emergency Medicine; Nurse Practitioner Acute Care; Student in an Organized Health Care Education/Training Program; ADMIT Internal Medicine
DX: I21.4 Non-ST elevation (NSTEMI) myocardial infarction (principal); Z28.21 Immunization not carried out because of patient refusal; I25.10 Atherosclerotic heart disease of native coronary artery without angina pectoris; E78.5 Hyperlipidemia, unspecified; I12.9 Hypertensive chronic kidney disease with stage 1 through stage 4 chronic kidney disease, or unspecified chronic kidney disease; E11.22 Type 2 diabetes mellitus with diabetic chronic kidney disease; D63.1 Anemia in chronic kidney disease; F17.210 Nicotine dependence, cigarettes, uncomplicated; N18.30 Chronic kidney disease, stage 3 unspecified; F32.A Depression, unspecified; E11.40 Type 2 diabetes mellitus with diabetic neuropathy, unspecified; Z90.49 Acquired absence of other specified parts of digestive tract; Z88.8 Allergy status to other drugs, medicaments and biological substances; Z79.4 Long term (current) use of insulin; Z79.02 Long term (current) use of antithrombotics/antiplatelets; Z79.82 Long term (current) use of aspirin; Z79.899 Other long term (current) drug therapy
CPT/HCPCS: 36415; 71045; 80048; 80053; 82947; 83735; 84484; 85025; 85520; 85610; 85730; 93005; 93010; 99285-25; A9270; J1644; J1815

== ENCOUNTER 2022-08-17 19:44 | Emergency (ER) | payer OTHER ==
[~2022-08-17] VITALS: Ht 180.3 cm; Wt 79.4 kg
[~2022-08-17 19:44] MED LIST changes: +Isosorbide Mono60 MG PO; +METO50ER PO
[2022-08-17 20:19] LABS: BASOPHILS ABSOLUTE AUTO 0.05 K/mm3 (0.00-0.23); BASOPHILS PERCENT AUTO 1 % (0-2); EOSINOPHILS PERCENT AUTO 2 % (0-6); Hematocrit 41.2 % (37.0-53.0); Hemoglobin 13.5 g/dL (13.5-17.5); IMMATURE GRAN ABSOLUTE AUTO 0.11 K/mm3 (0.00-0.10); IMMATURE GRAN PERCENT AUTO 1 % (0-1); LYMPHOCYTES PERCENT AUTO 18 % (21-46); MONOCYTES ABSOLUTE AUTO 0.69 K/mm3 (0.16-1.47); MONOCYTES PERCENT AUTO 8 % (4-13); Mean Corpuscular HGB 28.7 pg (26.0-34.0); Mean Corpuscular HGB Conc 32.8 g/dL (31.5-36.5); Mean Corpuscular Volume 88 fL (80-100); Mean Platelet Volume 10.4 fL (9.1-12.4); NEUTROPHILS PERCENT AUTO 70 % (41-73); Platelet Count 352 K/mm3 (150-400); RDW Coefficient Variation 14.1 % (11.7-14.2); Red Blood Cell Count 4.71 M/mm3 (4.30-5.90); White Blood Cell Count 8.55 K/mm3 (4.00-11.30)
[2022-08-17 20:43] LABS: Albumin, Blood 3.2 g/dL (3.4-5.0); Albumin/Globulin Ratio 0.9 (0.8-1.8); Bilirubin, Total 0.6 mg/dL (0.1-1.0); Bun/Creatinine Ratio 18.1 (12.0-20.0); Calcium, Blood 8.9 mg/dL (8.5-10.1); Creatinine, Blood 1.99 mg/dL (0.60-1.20); Globulin, Blood 3.7 g/dL (2.2-4.0); Potassium, Blood 4.2 mmol/L (3.5-5.5); Total Protein, Blood 6.9 g/dL (6.4-8.2)
== END 2022-08-17 23:22 | disposition home or self-care (01) ==
LOC: ER 19:44
PROVIDERS: Physician Assistant
DX: E11.649 Type 2 diabetes mellitus with hypoglycemia without coma (principal); I12.9 Hypertensive chronic kidney disease with stage 1 through stage 4 chronic kidney disease, or unspecified chronic kidney disease; E11.22 Type 2 diabetes mellitus with diabetic chronic kidney disease; N18.30 Chronic kidney disease, stage 3 unspecified; D63.1 Anemia in chronic kidney disease; I25.10 Atherosclerotic heart disease of native coronary artery without angina pectoris; I25.2 Old myocardial infarction; E11.40 Type 2 diabetes mellitus with diabetic neuropathy, unspecified; E78.5 Hyperlipidemia, unspecified; F17.210 Nicotine dependence, cigarettes, uncomplicated; Z88.8 Allergy status to other drugs, medicaments and biological substances; Z88.6 Allergy status to analgesic agent; Z79.899 Other long term (current) drug therapy; Z79.02 Long term (current) use of antithrombotics/antiplatelets; Z79.82 Long term (current) use of aspirin; Z79.4 Long term (current) use of insulin
CPT/HCPCS: 36415; 80053; 82947; 85025; 96374; 99285-25; J7799

== ENCOUNTER 2022-10-18 15:33 | Emergency (ER) | payer OTHER ==
[~2022-10-18] VITALS: Ht 172.7 cm; Wt 89.8 kg
[2022-10-18 16:36] LABS: BASOPHILS ABSOLUTE AUTO 0.03 K/mm3 (0.00-0.23); BASOPHILS PERCENT AUTO 0 % (0-2); EOSINOPHILS PERCENT AUTO 1 % (0-6); Hematocrit 40.6 % (37.0-53.0); Hemoglobin 13.5 g/dL (13.5-17.5); IMMATURE GRAN ABSOLUTE AUTO 0.08 K/mm3 (0.00-0.10); IMMATURE GRAN PERCENT AUTO 1 % (0-1); LYMPHOCYTES ABSOLUTE AUTO 1.24 K/mm3 (0.84-5.20); LYMPHOCYTES PERCENT AUTO 17 % (21-46); MONOCYTES ABSOLUTE AUTO 0.51 K/mm3 (0.16-1.47); MONOCYTES PERCENT AUTO 7 % (4-13); Mean Corpuscular HGB 28.5 pg (26.0-34.0); Mean Corpuscular HGB Conc 33.3 g/dL (31.5-36.5); Mean Corpuscular Volume 86 fL (80-100); Mean Platelet Volume 11.7 fL (9.1-12.4); NEUTROPHILS ABSOLUTE AUTO 5.49 K/mm3 (1.96-9.15); NEUTROPHILS PERCENT AUTO 74 % (41-73); Platelet Count 299 K/mm3 (150-400); RDW Coefficient Variation 13.9 % (11.7-14.2); RDW Standard Deviation 43.5 fL (35.1-46.3); Red Blood Cell Count 4.73 M/mm3 (4.30-5.90); White Blood Cell Count 7.45 K/mm3 (4.00-11.30)
[2022-10-18 16:56] LABS: Albumin, Blood 3.1 g/dL (3.4-5.0); Albumin/Globulin Ratio 0.8 (0.8-1.8); Bilirubin, Total 0.8 mg/dL (0.1-1.0); Bun/Creatinine Ratio 16.7 (12.0-20.0); Creatinine, Blood 2.57 mg/dL (0.60-1.20); Globulin, Blood 3.7 g/dL (2.2-4.0); Potassium, Blood 4.4 mmol/L (3.5-5.5); Total Protein, Blood 6.8 g/dL (6.4-8.2)
[2022-10-18 23:00] VITALS: BP 155/90
== END 2022-10-18 23:16 | disposition home or self-care (01) ==
LOC: ER 15:33
PROVIDERS: Student in an Organized Health Care Education/Training Program
DX: R10.12 Left upper quadrant pain (principal); Z88.8 Allergy status to other drugs, medicaments and biological substances; Z79.899 Other long term (current) drug therapy; Z79.82 Long term (current) use of aspirin; Z79.4 Long term (current) use of insulin; E11.22 Type 2 diabetes mellitus with diabetic chronic kidney disease; I12.9 Hypertensive chronic kidney disease with stage 1 through stage 4 chronic kidney disease, or unspecified chronic kidney disease; I25.10 Atherosclerotic heart disease of native coronary artery without angina pectoris; N18.30 Chronic kidney disease, stage 3 unspecified; E11.40 Type 2 diabetes mellitus with diabetic neuropathy, unspecified; E78.5 Hyperlipidemia, unspecified; F17.210 Nicotine dependence, cigarettes, uncomplicated
CPT/HCPCS: 36415; 71046; 80053; 83690; 84484; 85025; 93005; 93010; 96360; 96361; 99284-25; J7030

== ENCOUNTER 2022-12-31 15:04 | Observation (INO) | payer OTHER ==
[~2022-12-31] VITALS: Ht 172.7 cm; Wt 187.4 kg
[2022-12-31 16:02] LABS: BASOPHILS ABSOLUTE AUTO 0.04 K/mm3 (0.00-0.23); BASOPHILS PERCENT AUTO 1 % (0-2); EOSINOPHILS ABSOLUTE AUTO 0.08 K/mm3 (0.00-0.68); EOSINOPHILS PERCENT AUTO 1 % (0-6); Hematocrit 37.6 % (37.0-53.0); Hemoglobin 11.8 g/dL (13.5-17.5); IMMATURE GRAN ABSOLUTE AUTO 0.06 K/mm3 (0.00-0.10); IMMATURE GRAN PERCENT AUTO 1 % (0-1); LYMPHOCYTES ABSOLUTE AUTO 1.08 K/mm3 (0.84-5.20); LYMPHOCYTES PERCENT AUTO 14 % (21-46); MONOCYTES ABSOLUTE AUTO 0.61 K/mm3 (0.16-1.47); MONOCYTES PERCENT AUTO 8 % (4-13); Mean Corpuscular HGB 29.6 pg (26.0-34.0); Mean Corpuscular HGB Conc 31.4 g/dL (31.5-36.5); Mean Corpuscular Volume 94 fL (80-100); Mean Platelet Volume 10.9 fL (9.1-12.4); NEUTROPHILS ABSOLUTE AUTO 5.68 K/mm3 (1.96-9.15); NEUTROPHILS PERCENT AUTO 75 % (41-73); Platelet Count 258 K/mm3 (150-400); RDW Coefficient Variation 13.3 % (11.7-14.2); RDW Standard Deviation 46.1 fL (35.1-46.3); Red Blood Cell Count 3.99 M/mm3 (4.30-5.90); White Blood Cell Count 7.55 K/mm3 (4.00-11.30)
[2022-12-31 16:25] LABS: Albumin, Blood 2.9 g/dL (3.4-5.0); Albumin/Globulin Ratio 0.9 (0.8-1.8); Bilirubin, Total 0.6 mg/dL (0.1-1.0); Bun/Creatinine Ratio 19.2 (12.0-20.0); Calcium, Blood 8.5 mg/dL (8.5-10.1); Creatinine, Blood 2.71 mg/dL (0.60-1.20); Globulin, Blood 3.3 g/dL (2.2-4.0); Potassium, Blood 6.4 mmol/L (3.5-5.5); Total Protein, Blood 6.2 g/dL (6.4-8.2)
[2022-12-31 18:55] LABS: Glucose, Blood 398 mg/dL (70-99)
[2022-12-31 19:51] LABS: Bun/Creatinine Ratio 22.3 (12.0-20.0); Calcium, Blood 8.5 mg/dL (8.5-10.1); Creatinine, Blood 2.47 mg/dL (0.60-1.20); Potassium, Blood 6.2 mmol/L (3.5-5.5)
[2022-12-31 21:36] LABS: Beta-hydroxybutyrate 1.2 mg/dL (0.2-2.8)
[2022-12-31 21:47] LABS: Base Excess Venous -2.9 mmol/L; Bicarbonate Venous 22.1 mmol/L (24.0-30.0); PCO2 Venous 41.8 mmHg (38-42); pH Blood Venous 7.35 (7.34-7.37)
[2022-12-31 22:46] LABS: Bun/Creatinine Ratio 22.2 (12.0-20.0); Calcium, Blood 8.5 mg/dL (8.5-10.1); Creatinine, Blood 2.25 mg/dL (0.60-1.20); Potassium, Blood 4.7 mmol/L (3.5-5.5)
[2023-01-01 00:20] VITALS: BP 161/90
[2023-01-01 00:41] LABS: Bun/Creatinine Ratio 22.5 (12.0-20.0); Calcium, Blood 8.6 mg/dL (8.5-10.1); Creatinine, Blood 2.18 mg/dL (0.60-1.20); Potassium, Blood 4.9 mmol/L (3.5-5.5)
[2023-01-01 03:41] VITALS: BP 136/89
--- NOTE | 2023-01-01 04:56 | NUR ---
ASSUMPTION OF CARE AND SHIFT SUMMARY PT AXO. COOPERATIVVE. PT IS SMOKER, STATES LIGHTERS WERE REMOVED IN. RECEIVED EDUCATION WELL REGARDING FIRE RISK. PT ON FLUIDS UPON ARRIVAL. VSS. STATES FEELING BETTER, DENIES CP/PRESSURE. INDEPENDENT. POTASSIUM STABLE WELL BLOOD GLUCOSE AT THIS TIME. PT RESTING POST ADMISSION COMPLETION.
[2023-01-01 05:10] LABS: Bun/Creatinine Ratio 21.9 (12.0-20.0); Calcium, Blood 8.4 mg/dL (8.5-10.1); Creatinine, Blood 2.1 mg/dL (0.60-1.20); Potassium, Blood 4.7 mmol/L (3.5-5.5)
[2023-01-01 08:23] VITALS: BP 158/82
--- NOTE | 2023-01-01 10:16 | NUR ---
AT 0800, PT ASSESSED FOR IGNITION RISK, PT REPORTS BEING A SMOKER BUT NO LIGHTERS PRESENT. PT REMINDED THAT [facility] IS A SMOKE FREE FACILITY. PT INFORMED THAT ANY VISITORS THAT HAVE IGNITION RISK DEVICES NEED TO LEAVE SUCH DIVICES IN THEIR CAR. PT AGREED.
--- NOTE | 2023-01-01 11:04 | NUR ---
DISCHARGE UPDATE DISCHARGE PACKET GONE OVER WITH PT AT 1055. PT UPDATED ON MEDICATION FREQUENCY AND DOSAGE CHANGES. PT DISCHARGED AT 1110. PT REQUESTED TO WALK, REFUSING WHEELCHAIR AT TIME OF DISCHARGE, PT INDEPENDENT AND TOLERATES WELL. PT PERSONAL BELONGINGS IN HIS BACKPACK AND WITH PT DURING DISCHARGE. DISCHARGE PACKET WITH PT DURING DISCHARGE.
== END 2023-01-01 11:08 | disposition home or self-care (01) ==
LOC: ER 15:04 → PCU 15:05
PROVIDERS: Emergency Medicine; Nurse Practitioner Acute Care; Student in an Organized Health Care Education/Training Program; ADMIT Internal Medicine
DX: R07.89 Other chest pain (principal); E87.5 Hyperkalemia; N17.9 Acute kidney failure, unspecified; I12.9 Hypertensive chronic kidney disease with stage 1 through stage 4 chronic kidney disease, or unspecified chronic kidney disease; E11.22 Type 2 diabetes mellitus with diabetic chronic kidney disease; N18.30 Chronic kidney disease, stage 3 unspecified; E87.20 Acidosis, unspecified; I25.10 Atherosclerotic heart disease of native coronary artery without angina pectoris; E78.5 Hyperlipidemia, unspecified; F32.A Depression, unspecified
CPT/HCPCS: 36415; 71046; 80048; 80053; 82010; 82803; 82947; 83605; 83880; 84484; 85025; 93005; 93010; 96365; 96372; 99285-25; A9270; G0378; J0612; J1644; J1815; J7030

== ENCOUNTER 2023-03-18 14:01 | Emergency (ER) | payer OTHER ==
[~2023-03-18] VITALS: Ht 172.7 cm; Wt 74.8 kg
[2023-03-18] MEDS ORDERED: LOSARTAN POTASS25 M2 PO (14:16)
[2023-03-18] MEDS ORDERED: ISOSORBIDE MONO30 MG PO (14:16)
[2023-03-18 14:19] LABS: BASOPHILS ABSOLUTE AUTO 0.05 K/mm3 (0.00-0.23); BASOPHILS PERCENT AUTO 1 % (0-2); EOSINOPHILS ABSOLUTE AUTO 0.11 K/mm3 (0.00-0.68); EOSINOPHILS PERCENT AUTO 1 % (0-6); Hematocrit 33.6 % (37.0-53.0); Hemoglobin 10.9 g/dL (13.5-17.5); IMMATURE GRAN ABSOLUTE AUTO 0.11 K/mm3 (0.00-0.10); IMMATURE GRAN PERCENT AUTO 1 % (0-1); LYMPHOCYTES ABSOLUTE AUTO 0.93 K/mm3 (0.84-5.20); LYMPHOCYTES PERCENT AUTO 10 % (21-46); MONOCYTES ABSOLUTE AUTO 0.41 K/mm3 (0.16-1.47); MONOCYTES PERCENT AUTO 5 % (4-13); Mean Corpuscular HGB 29.2 pg (26.0-34.0); Mean Corpuscular HGB Conc 32.4 g/dL (31.5-36.5); Mean Corpuscular Volume 90 fL (80-100); Mean Platelet Volume 9.9 fL (9.1-12.4); NEUTROPHILS ABSOLUTE AUTO 7.35 K/mm3 (1.96-9.15); NEUTROPHILS PERCENT AUTO 82 % (41-73); Platelet Count 334 K/mm3 (150-400); RDW Coefficient Variation 13.9 % (11.7-14.2); RDW Standard Deviation 45.5 fL (35.1-46.3); Red Blood Cell Count 3.73 M/mm3 (4.30-5.90); White Blood Cell Count 8.96 K/mm3 (4.00-11.30)
[2023-03-18 14:35] LABS: Albumin, Blood 2.7 g/dL (3.4-5.0); Albumin/Globulin Ratio 0.9 (0.8-1.8); Bilirubin, Total 1.2 mg/dL (0.1-1.0); Bun/Creatinine Ratio 14.2 (12.0-20.0); Calcium, Blood 8.3 mg/dL (8.5-10.1); Creatinine, Blood 2.6 mg/dL (0.60-1.20); Globulin, Blood 2.9 g/dL (2.2-4.0); Potassium, Blood 5.8 mmol/L (3.5-5.5); Total Protein, Blood 5.6 g/dL (6.4-8.2)
[2023-03-18 17:30] VITALS: BP 124/69
== END 2023-03-18 17:52 | disposition home or self-care (01) ==
LOC: ER 14:01
PROVIDERS: Emergency Medicine
DX: I20.8 Other forms of angina pectoris (principal); E11.65 Type 2 diabetes mellitus with hyperglycemia; I12.9 Hypertensive chronic kidney disease with stage 1 through stage 4 chronic kidney disease, or unspecified chronic kidney disease; N18.30 Chronic kidney disease, stage 3 unspecified; E11.22 Type 2 diabetes mellitus with diabetic chronic kidney disease; E11.40 Type 2 diabetes mellitus with diabetic neuropathy, unspecified; I25.2 Old myocardial infarction; F17.210 Nicotine dependence, cigarettes, uncomplicated; E78.5 Hyperlipidemia, unspecified; Z88.8 Allergy status to other drugs, medicaments and biological substances; Z79.899 Other long term (current) drug therapy; Z79.82 Long term (current) use of aspirin; Z79.4 Long term (current) use of insulin
CPT/HCPCS: 80053; 84484; 85025; 93005; 93010; 99285-25; A9270; J1815; J7120

== ENCOUNTER 2023-07-21 14:02 | Inpatient (IN) | payer OTHER ==
[~2023-07-21] VITALS: Ht 172.7 cm; Wt 75.9 kg
[~2023-07-21 14:02] MED LIST changes: +LOSARTAN POTASS25 M2 PO
[2023-07-21 15:04] LABS: Alanine Aminotransfer (ALT/SGP 32 U/L (12-78); Albumin, Blood 2.7 g/dL (3.4-5.0); Albumin/Globulin Ratio 0.9 (0.8-1.8); Alk Phos 158 U/L (50-136); Anion Gap 6 mmol/L (6-16); Aspartate Aminotrans (AST/SGOT 29 U/L (12-37); Bilirubin, Total 0.5 mg/dL (0.1-1.0); Blood Urea Nitrogen 29 mg/dL (8-24); Bun/Creatinine Ratio 13.4 (12.0-20.0); CO2, Blood 20 mmol/L (21-32); Calcium, Blood 8.8 mg/dL (8.5-10.1); Chloride, Blood 115 mmol/L (98-108); Creatinine, Blood 2.16 mg/dL (0.60-1.20); Ethanol (Alcohol), Blood, Med <3 mg/dL; Glomerular Filtration Rate 37 (60-); Glucose, Blood 214 mg/dL (70-99); Magnesium, Blood 2.3 mg/dL (1.6-2.4); Potassium, Blood 5.4 mmol/L (3.5-5.5); Sodium, Blood 141 mmol/L (136-145); Total Protein, Blood 5.7 g/dL (6.4-8.2)
[2023-07-21 15:55] LABS: U Amphetamine Screen Not Detected; U Barbituate Screen Not Detected; U Benzodiazapine Screen Not Detected; U Buprenorphine Screen Not Detected; U Cannabinoids Screen Not Detected; U Cocaine Screen Not Detected; U Methadone Screen Not Detected; U Methamphetamine Screen Not Detected; U Opiates Screen Not Detected; U Oxycodone Screen Not Detected; U Phencyclidine Screen Not Detected
[2023-07-21 16:01] LABS: BASOPHILS ABSOLUTE AUTO 0.06 K/mm3 (0.00-0.23); BASOPHILS PERCENT AUTO 0 % (0-2); EOSINOPHILS ABSOLUTE AUTO 0.04 K/mm3 (0.00-0.68); EOSINOPHILS PERCENT AUTO 0 % (0-6); Hematocrit 42.1 % (37.0-53.0); Hemoglobin 13.7 g/dL (13.5-17.5); IMMATURE GRAN ABSOLUTE AUTO 0.16 K/mm3 (0.00-0.10); IMMATURE GRAN PERCENT AUTO 1 % (0-1); LYMPHOCYTES ABSOLUTE AUTO 0.47 K/mm3 (0.84-5.20); LYMPHOCYTES PERCENT AUTO 3 % (21-46); MONOCYTES ABSOLUTE AUTO 0.66 K/mm3 (0.16-1.47); MONOCYTES PERCENT AUTO 4 % (4-13); Mean Corpuscular HGB 29.1 pg (26.0-34.0); Mean Corpuscular HGB Conc 32.5 g/dL (31.5-36.5); Mean Corpuscular Volume 90 fL (80-100); Mean Platelet Volume 10.1 fL (9.1-12.4); NEUTROPHILS ABSOLUTE AUTO 17.17 K/mm3 (1.96-9.15); NEUTROPHILS PERCENT AUTO 93 % (41-73); Platelet Count 364 K/mm3 (150-400); RDW Coefficient Variation 13.6 % (11.7-14.2); RDW Standard Deviation 45.2 fL (35.1-46.3); White Blood Cell Count 18.56 K/mm3 (4.00-11.30)
[2023-07-21 16:04] LABS: Source, Urine Straight Cath
[2023-07-21 16:12] LABS: Appearance, Urine Clear (Clear); Bilirubin, Urine Neg (Neg); Blood, Urine 3+ (Neg); Color, Urine Yellow (P-Yellow); Glucose Qualitative, Urine 2+ (Neg); Ketones, Urine Neg (Neg); Leukocyte Esterase, Urine Neg (Neg); Nitrite, Urine Neg (Neg); Protein, Urine 4+ (Neg); Specific Gravity, Urine 1.015 (1.003-1.022); Urobilinogen, Urine NORM (Normal)
[2023-07-21 16:26] LABS: Base Excess Venous -4.2 mmol/L; Bicarbonate Venous 20.9 mmol/L (24.0-30.0); PCO2 Venous 42.5 mmHg (38-42); pH Blood Venous 7.32 (7.34-7.37)
[2023-07-21 16:27] LABS: Amorphous Light (0-Heavy); Bacteria Rare /hpf; Hyaline Casts 0-2 /lpf (0-2); Squamous Epithelial Cells Rare /hpf (Few)
[2023-07-21 18:58] LABS: Influenza A, PCR NEGATIVE (NEGATIVE); Influenza B, PCR NEGATIVE (NEGATIVE); Resp Syncytial Virus, PCR NEGATIVE (NEGATIVE); SARS-Cov-2 (COVID-19) PCR, MMC NEGATIVE (NEGATIVE)
[2023-07-21 20:35] LABS: Appearance, CSF Clear (Clear); Color, CSF No Color (No Color); RBC Count, CSF 0 /mm3 (0-0); WBC Count, CSF 2 /mm3 (0-5)
[2023-07-21 20:36] LABS: WBC Count, CSF 2 /mm3 (0-5)
[2023-07-21 20:37] LABS: RBC Count, CSF 2 /mm3 (0-0)
[2023-07-21 20:39] LABS: Appearance, CSF Clear (Clear); Color, CSF No Color (No Color)
[2023-07-21 20:53] LABS: Glucose, CSF 70 mg/dL (40-70)
[2023-07-21 22:00] LABS: Cryptococcus Neoformans/Gattii Not Detected (NOT DETECT); Enterovirus Not Detected (NOT DETECT); Escherichia Coli K1 Not Detected (NOT DETECT); Haemophilus Influenza Not Detected (NOT DETECT); Herpes Simplex Virus 1 Not Detected (NOT DETECT); Herpes Simplex Virus 2 Not Detected (NOT DETECT); Human Herpesvirus 6 Not Detected (NOT DETECT); Human Parechovirus Not Detected (NOT DETECT); Listeria Monocytogenes Not Detected (NOT DETECT); Neisseria Meningitidis Not Detected (NOT DETECT); Streptococcus Agalactiae Not Detected (NOT DETECT); Streptococcus Pneumoniae Not Detected (NOT DETECT); Varicella Zoster Virus Not Detected (NOT DETECT)
[2023-07-22] VITALS (33 sets, daily range): BP systolic 103–201; BP diastolic 67–101
--- NOTE | 2023-07-22 01:55 | NUR ---
Sudden intense muscle contractions - At 0145 pt exerpienced intense muscle contractions in his R leg and R arm, he R leg contracted and his R arm lifted up his bedside table. Pt does not remember what happened very well, AOx4 immediatly after the event. Called hospitalist, no new orders.
--- NOTE | 2023-07-22 03:24 | NUR ---
TRANSFER TO ICU PT TRANSFERRED TO ICU 12 POST SEIZURE. PT UNAROUSABLE WITH BILAT PUPILS 6MM AND SLUGGISH TO RESPOND; EYES NOTED TO HAVE SLOW NYSTAGMIS. LS VERY COARSE T/O; NASAL TRUMPET PLACED DUE TO LOUD OBSTUCTIVE SNORING. PT WAS BROUGHT ON 15L NRB, ABLE TO TITRATE DOWN TO 5L N/C. MULTIPLE ABRAISIONS NOTED ON FACE, CHEST AND LEGS; PICTURES TAKEN.
--- NOTE | 2023-07-22 03:31 | NUR ---
TRANSFER SUMMARY: PATIENT TRANSFERED AT 0308. PRIMARY NURSE AMINA DICKINSON MEDICAL GAVE REPROT TO LAURA. Cole SUPPLY CONTROLLER ICU. THE PATIENT AGAIN STARTED TO HAVE TREMOR LIKE ACTIVITY WITH MINOR SPASMING, HOWEVER, WAS COMPLETELY ALERT AND ORIENTED, WAS ABLE TO ANSWER QUESTIONS IN SMALL SENTENCES, SIMILAR TO PREVIOUS EVENT THAT PRIMARY RN NOTIFIED HOSPITALIST. NO NEW ORDERS AT THAT TIME. HOSPITALIST LOOKING INTO CHART. PATIENT ESCALATED FROM SPASM/ TREMOR ACTIVITY TO COMPLETELY ELISE, LOSS OF ABILITY TO ANSWER, DECORTICAL POSTURING WITH ABVIOUS SNORING RESPIRATIONS, AND GRUNTING WITH DECREASED OXYGENATION. PLACED ON NRB AT 15L SUCTION CANISTER SET UP, CBG OBTAINED, SUPPLY CONTROLLER IN THE ROOM, SAT AT 90' AND PLACED SEIZURE PADS, ALONG WITH PILLOW SUPPORT. PCU CHARGE AND HOUSE SUP AT BEDSIDE. HOSPITALIST NOTIFIED, ORDERED, DANIEL. SECOND OCCURANCCE HAPPENED, PROVIDER APPROVED 1 TIME 2MG ATIVAN AND CAME TO BEDSIDE. TRANSFER TO ICU DUE TO CONCERNS ABOUT AIRWAY. PATIENT TRANSFERRED BY PCU CHARGE PRIMARY RN, CT SCAN TECHNOLOGIST AND HOSPITALIST.
[2023-07-22 04:00] LABS: BASOPHILS ABSOLUTE AUTO 0.07 K/mm3 (0.00-0.23); BASOPHILS PERCENT AUTO 1 % (0-2); EOSINOPHILS ABSOLUTE AUTO 0.12 K/mm3 (0.00-0.68); EOSINOPHILS PERCENT AUTO 1 % (0-6); Hematocrit 34.3 % (37.0-53.0); Hemoglobin 11.4 g/dL (13.5-17.5); IMMATURE GRAN ABSOLUTE AUTO 0.08 K/mm3 (0.00-0.10); IMMATURE GRAN PERCENT AUTO 1 % (0-1); LYMPHOCYTES ABSOLUTE AUTO 0.94 K/mm3 (0.84-5.20); LYMPHOCYTES PERCENT AUTO 7 % (21-46); MONOCYTES ABSOLUTE AUTO 0.95 K/mm3 (0.16-1.47); MONOCYTES PERCENT AUTO 7 % (4-13); Mean Corpuscular HGB 29.5 pg (26.0-34.0); Mean Corpuscular HGB Conc 33.2 g/dL (31.5-36.5); Mean Corpuscular Volume 89 fL (80-100); Mean Platelet Volume 9.9 fL (9.1-12.4); NEUTROPHILS PERCENT AUTO 84 % (41-73); Platelet Count 294 K/mm3 (150-400); RDW Coefficient Variation 13.8 % (11.7-14.2); RDW Standard Deviation 44.9 fL (35.1-46.3); Red Blood Cell Count 3.86 M/mm3 (4.30-5.90); White Blood Cell Count 13.36 K/mm3 (4.00-11.30)
--- NOTE | 2023-07-22 04:09 | NUR ---
SPOKE WITH DR. CHOI ABOUT A REPEAT CT HEAD; DR. CHOI STATES HE DOESN'T WANT A REPEAT AT THIS TIME, BUT THAT HE WANTS AN EEG IN THE AM.
[2023-07-22 04:36] LABS: Albumin/Globulin Ratio 0.6 (0.8-1.8); Bilirubin, Total 0.5 mg/dL (0.1-1.0); Bun/Creatinine Ratio 15.1 (12.0-20.0); Calcium, Blood 8.1 mg/dL (8.5-10.1); Creatinine, Blood 2.32 mg/dL (0.60-1.20); Globulin, Blood 3.1 g/dL (2.2-4.0); Total Protein, Blood 5.1 g/dL (6.4-8.2)
--- NOTE | 2023-07-22 13:58 | NUR ---
ASSUMED CARE OF PT AT 0700 THIS AM. PT NOTED TO BE LETHARGIC AND MINIMALLY RESPONSIVE, WILL OPEN EYES FOR A FEW SECONDS AND THEN FALL BACK TO SLEEP. SEE DOCUMENTED VS AND ASSESSMENT. NASAL TRUMPET IN PLACE FOR AIRWAY PROTECTION, SPO2 98% ON 2L, TITRATED DOWN THE RA. FSBS THIS AM [address] LEMUS NOTIFIED AND NEW ORDERS RECEIVED FOR INSULIN AND IVF. IN THE EARLY AFTERNOON PT IS MORE AWAKE WITH STIMULATION, THEN APPEARS TO FALL QUICKLY BACK TO SLEEP. PT'S FATHER AT BEDSIDE APROX 1300, HE ASSISTED THIS RN TO FILL OUT MRI SCREENING FORM AND IS UPDATED ON PT CONDITION AND PLAN OF CARE. NASAL TRUMPET REMOVED AT THIS TIME, PT SAFELY MAINTAINING AIRWAY AND IS MORE RESPONSIVE. WILL CONITNUE TO MONITOR AND TREAT.
--- NOTE | 2023-07-22 17:21 | NUR ---
ASSUMED CARE REPORT RECIEVED. PT RESTING QUIETLY AT THIS TIME. PT ON ROOM AIR. VSS. LR INFUSING AT 75 ML/HR. CONDOM CATH IN PLACE. WILL CONTINUE TO MONITOR AND REPORT OFF TO ONCOMING RN.
--- NOTE | 2023-07-22 23:20 | NUR ---
ASSUMED CARE AT 1900 PT LAYING IN BED SLEEPING AT SHIFT CHANGE. HIS FATHER CAME IN TO VISIT FOR A SHORT WHILE; HE WAS APPROPRIATE. PT STATES THAT HE IS FEELING BETTER, IS A/O X4 AND FALLS BACK ASLEEP WHEN NOT STIMULATED. WHEN ASKED WHY HE IS HERE AT THE HOSPITAL, HE STATES THAT HE HAD AN "INSULIN REACTION"; WHEN ASKED FUTHER WHAT THAT MENT, HE STATES THAT HE TOOK TOO MUCH INSULIN. SPO2 >98% ON RA. AFEBRILE. HR 70'S. SBP 130-150'S. HE IS ASKING FOR FOOD, GRADUALLY TRIALLED WATER, TO OJ, TO APPLESAUCE, TO CRACKERS, TO CHEESE; HE IS SAFELY EATING AND SWALLOWING. CONDOM CATH IN PLACE. WOUNDS TO NOSE AND ABD NOTED. LR INFUSING AT 75ML/HR. CBG CHECKED AT 2054 AND READ 77; SINCE PT IS ABLE TO SAFELY SWALLOW, OJ AND APPLESAUCE GIVEN. REPEAT CBG SHOWED 100; PLAN TO CHECK AGAIN AROUND 0000. SEE SHIFT ASSESSMENT FOR FULL ASSESSMENT. HIS HIDE HANDLER FROM HIS [employer] CAME TO SEE PT AROUND 2099. SHE WAS APPROPRIATE AND THEY BOTH PRAYED TOGETHER AND SHE LEFT SHORTLY AFTER THAT.
[2023-07-23] VITALS (20 sets, daily range): BP systolic 132–177; BP diastolic 83–98
[2023-07-23 03:55] LABS: BASOPHILS ABSOLUTE AUTO 0.04 K/mm3 (0.00-0.23); BASOPHILS PERCENT AUTO 1 % (0-2); EOSINOPHILS ABSOLUTE AUTO 0.23 K/mm3 (0.00-0.68); EOSINOPHILS PERCENT AUTO 3 % (0-6); Hematocrit 36.1 % (37.0-53.0); Hemoglobin 11.8 g/dL (13.5-17.5); IMMATURE GRAN ABSOLUTE AUTO 0.04 K/mm3 (0.00-0.10); IMMATURE GRAN PERCENT AUTO 1 % (0-1); LYMPHOCYTES ABSOLUTE AUTO 2.11 K/mm3 (0.84-5.20); LYMPHOCYTES PERCENT AUTO 26 % (21-46); MONOCYTES ABSOLUTE AUTO 0.66 K/mm3 (0.16-1.47); MONOCYTES PERCENT AUTO 8 % (4-13); Mean Corpuscular HGB 29.4 pg (26.0-34.0); Mean Corpuscular HGB Conc 32.7 g/dL (31.5-36.5); Mean Corpuscular Volume 90 fL (80-100); Mean Platelet Volume 9.9 fL (9.1-12.4); NEUTROPHILS PERCENT AUTO 61 % (41-73); Platelet Count 268 K/mm3 (150-400); RDW Coefficient Variation 13.7 % (11.7-14.2); RDW Standard Deviation 45.4 fL (35.1-46.3); Red Blood Cell Count 4.02 M/mm3 (4.30-5.90); White Blood Cell Count 7.98 K/mm3 (4.00-11.30)
[2023-07-23 04:18] LABS: Albumin/Globulin Ratio 0.6 (0.8-1.8); Bilirubin, Total 0.5 mg/dL (0.1-1.0); Bun/Creatinine Ratio 15.9 (12.0-20.0); Calcium, Blood 8.3 mg/dL (8.5-10.1); Creatinine, Blood 2.45 mg/dL (0.60-1.20); Globulin, Blood 3.2 g/dL (2.2-4.0); Magnesium, Blood 2.2 mg/dL (1.6-2.4); Potassium, Blood 4.5 mmol/L (3.5-5.5); Total Protein, Blood 5.2 g/dL (6.4-8.2)
--- NOTE | 2023-07-23 06:41 | NUR ---
END OF SHIFT SUMMARY NO ACUTE EVENTS OVER NIGHT, HE WAS ABLE TO SLEEP FOR MOST OF THE NIGHT. HE IS A/O X4; CALM AND COOPERATIVE WITH CARE. SPO2 >97% ON RA. AFEBRILE. HR 60-70'S. SBP 130-160'S. TOLERATING PO INTAKE WELL. CONDOM CATH IN PLACE WITH ADEQUATE OUTPUT. NO C/O PAIN TO WOUND ON NOSE OR ABD. LR INFUSING AT 75ML/HR. CBG CHECKED FREQUENTLY, AFTER EATING LARGE SNACK BEFORE FALLING ASLEEP, CBG MORE STABLE AND BEING COVERED WITH INSULIN. WILL REPORT TO AM RN WHEN AVAILABLE.
--- NOTE | 2023-07-23 16:48 | NUR ---
SHIFT SUMMARY NO ACUTE CHANGES THIS SHIFT. PT HAS BEEN RESTING QUIETLY THROUGHOUT MOST OF THE DAY. PT AWAKENS EASILY AND IS ALERT AND ORIENTED. PT ANSWERS QUESTIONS APPROPRIATELY. PT HAS DENIED PAIN OR DISCOMFORT THIS SHIFT. VITAL SIGNS HAVE REMAINED STABLE. PT ON ROOM AIR. IV'S SALINE LOCKED. PT WITH CONDOM CATH IN PLACE WITH YELLOW URINE OUTPUT NOTED. PT TAKING IN PO INTAKE WELL. WILL CONTINUE TO MONITOR AND REPORT OFF TO ONCOMING RN.
--- NOTE | 2023-07-23 22:38 | NUR ---
TRANSFER NOTE REPORT GIVEN TO KASSI DICKINSON. PT WAS A/OX4. NOTIFIED OF TRANSFER. PT WHEELED TO ROOM IN WHEEL CHAIR. RN AT BEDSIDE.
--- NOTE | 2023-07-23 23:08 | NUR ---
TRANSFERED TO MEDICAL UNIT FROM ICU AT 2230. ABLE TO STAND TO TRANSFER WITH ASSISTANCE, WEAK STANCE. ORIENTATED X4, SLOW SPEACH AND HE SAID HE STILL FEELS A BIT "FOGGY". 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 DENIES ANY PAIN ON ARRIVAL. SEIZURE PADS ON BED RAILS. BED LOW, CALL LIGHT IN REACH, BED ALARM ON.
[2023-07-24 02:36] VITALS: BP 161/89
--- NOTE | 2023-07-24 05:53 | NUR ---
SHIFT SUMMARY MR DAY DIDN'T SLEEP MUCH OVERNIGHT. RESTED IN BED, DENIED PAIN, WATCHED TV. HE HAS DENIED ANY PROBLEMS OR CONCERNS OVERNIGHT. BED LOW, CALL LIGHT IN REACH. SEIZURE PADS IN PLACE.
[2023-07-24 07:57] VITALS: BP 174/90
--- NOTE | 2023-07-24 10:45 | NUR ---
NOTIFIED NOTIFIED THIS AM OF PT'S BLOOD SUGAR OF 426. EMAR UPDATED AND INSULIN GIVEN. PT ASYMPTOMATIC.
[2023-07-24 15:47] VITALS: BP 127/79
--- NOTE | 2023-07-24 17:26 | NUR ---
SHIFT SUMMARY PT A&OX4, AMB W/ 1 P ASSIST, TOLERATING PO, VOIDING, AND DENIED PAIN. PT HYPERTENSIVE T/O SHIFT, ASYMPTOMATIC, AND MEDICATED PER EMAR. PT'S BLOOD GLUCOSE ELEVATED THIS AM, NOTIFIED PROVIDER, AND MEDICATED PER EMAR, SEE PREVIOUS NOTE. EEG DONE TODAY. NO OTHER ACUTE CHANGES THIS SHIFT. CALL LIGHT WITHIN REACH AND PT ABLE TO MAKE NEEDS KNOWN.
[2023-07-24 19:32] VITALS: BP 155/92
[2023-07-25 03:15] VITALS: BP 143/91
--- NOTE | 2023-07-25 04:13 | NUR ---
END OF SHIFT SUMMARY PT A&O x4, VSS, AFEBRILE, PT ON RA. PT 1P SBA W/ FWW TO RESTROOM FOR SAFETY. PT C/O DIZZINESS EARILER ON DAY SHIFT. PT DENIED DIZZINESS/LIGHTHEADNESS WITH TRANSFER TO BATHROOM ON NOC SHIFT. PT RECEIVED A SHOWER. PT'S CBG WAS 294. PT MEDICATED PER EMAR; 20 UNITS OF LONG ACTING INSULIN AND 1 UNIT OF HUMALOG ACCORDING TO THE SLIDING INSULIN SCALE WAS ADMINISTERED FOR COVERAGE. SEIZURE PRECAUTIONS IN PLACE, SEIZURE PADS UP ON BOTH SIDE RAILS OF THE BED. PT CALM AND COOPERATIVE WITH CARE PROVIDED. PT ABLE TO MAKE NEEDS KNOWN, CALL LIGHT WITHIN REACH, WCTM.
[2023-07-25 06:09] LABS: Bun/Creatinine Ratio 16.4 (12.0-20.0); Calcium, Blood 8.3 mg/dL (8.5-10.1); Creatinine, Blood 2.56 mg/dL (0.60-1.20); Potassium, Blood 4.2 mmol/L (3.5-5.5)
[2023-07-25 07:38] VITALS: BP 126/83
--- NOTE | 2023-07-25 08:39 | NUR ---
pt sitting up in bed awake eating breakfast, no s/s of distress noted, states he's doing well, no complaints, a/ox4, pleasant and coopertive with care, follows commands well, lungs are clear on r/a, no cough noted or reported, resp even and unlabored, hrr, no edema noted, ppp+1, cap refill <3 sec, vs stable, afebrile, piv sites are clear and patent, btx4, abd flat soft nontender, voids without diff, skin c/w/d, maew, isi, call light in reach.
[2023-07-25] MEDS ORDERED: BASAGLAR K100 UNIT/1 SC (12:57)
[2023-07-25] MEDS ORDERED: HUMALOG KW100 UNIT/1 SC (12:59)
[2023-07-25] MEDS ORDERED: LOSA50 PO (12:59)
[2023-07-25] MEDS ORDERED: LEVE500 PO (13:00)
--- NOTE | 2023-07-25 14:15 | NUR ---
pt dressed ready to go home, laying on couch in room, states he feels good, and wants to go, went over discharge instructions with him, he verbalized understanding, new medications faxed to [facility], left via wheelchair with truck washer in attendence.
== END 2023-07-25 14:23 | disposition home or self-care (01) | DRG 100 ==
LOC: ER 14:02 → MEDS 22:16 → ICUE 22:16 → MEDS 23:37 → ICUE 07-22 03:04 → MEDS 07-23 22:36
PROVIDERS: Family Medicine; Internal Medicine; Student in an Organized Health Care Education/Training Program; ADMIT Internal Medicine
PROC: 009U3ZX Drainage of Spinal Canal, Percutaneous Approach, Diagnostic (ICD-10-PCS; principal; 2023-07-21)
PROC: 4A00X4Z Measurement of Central Nervous Electrical Activity, External Approach (ICD-10-PCS; 2023-07-24)
DX: G40.89 Other seizures (principal); J96.01 Acute respiratory failure with hypoxia; J96.02 Acute respiratory failure with hypercapnia; R65.10 Systemic inflammatory response syndrome (SIRS) of non-infectious origin without acute organ dysfunction; E87.29 Other acidosis; E11.649 Type 2 diabetes mellitus with hypoglycemia without coma; E11.22 Type 2 diabetes mellitus with diabetic chronic kidney disease; N18.30 Chronic kidney disease, stage 3 unspecified; I12.9 Hypertensive chronic kidney disease with stage 1 through stage 4 chronic kidney disease, or unspecified chronic kidney disease; I25.10 Atherosclerotic heart disease of native coronary artery without angina pectoris; F32.A Depression, unspecified; E78.5 Hyperlipidemia, unspecified; F17.210 Nicotine dependence, cigarettes, uncomplicated; D72.829 Elevated white blood cell count, unspecified; E11.65 Type 2 diabetes mellitus with hyperglycemia; I25.2 Old myocardial infarction; Z95.5 Presence of coronary angioplasty implant and graft; Z88.8 Allergy status to other drugs, medicaments and biological substances; Z79.02 Long term (current) use of antithrombotics/antiplatelets; Z79.82 Long term (current) use of aspirin; Z79.4 Long term (current) use of insulin; Z11.52 Encounter for screening for COVID-19
CPT/HCPCS: 0241U; 36415; 62270; 70450; 70496; 70498; 70551; 71045; 72125; 80048; 80053; 81001; 82550; 82803; 82945; 82947; 83605; 83735; 84157; 85025; 87070; 87205; 87483; 89051; 90471; 90714; 93005; 93010; 95819; 99285-25; A9270; J0360; J1644; J1815; J1953; J2060; J7030; J7120; Q9967

== ENCOUNTER 2023-08-08 13:35 | Emergency (ER) | payer OTHER ==
[~2023-08-08] VITALS: Ht 172.7 cm; Wt 88.5 kg
[~2023-08-08 13:35] MED LIST changes: +BASAGLAR K100 UNIT/1 SC; +LEVE500 PO; +LOSA50 PO
[2023-08-08 14:12] LABS: BASOPHILS ABSOLUTE AUTO 0.07 K/mm3 (0.00-0.23); BASOPHILS PERCENT AUTO 1 % (0-2); EOSINOPHILS ABSOLUTE AUTO 0.23 K/mm3 (0.00-0.68); EOSINOPHILS PERCENT AUTO 3 % (0-6); Hematocrit 42.2 % (37.0-53.0); Hemoglobin 14.1 g/dL (13.5-17.5); IMMATURE GRAN ABSOLUTE AUTO 0.12 K/mm3 (0.00-0.10); IMMATURE GRAN PERCENT AUTO 1 % (0-1); LYMPHOCYTES PERCENT AUTO 20 % (21-46); MONOCYTES ABSOLUTE AUTO 0.54 K/mm3 (0.16-1.47); MONOCYTES PERCENT AUTO 6 % (4-13); Mean Corpuscular HGB 29.4 pg (26.0-34.0); Mean Corpuscular HGB Conc 33.4 g/dL (31.5-36.5); Mean Corpuscular Volume 88 fL (80-100); Mean Platelet Volume 10.8 fL (9.1-12.4); NEUTROPHILS PERCENT AUTO 69 % (41-73); Platelet Count 431 K/mm3 (150-400); RDW Coefficient Variation 13.2 % (11.7-14.2); RDW Standard Deviation 42.8 fL (35.1-46.3); Red Blood Cell Count 4.79 M/mm3 (4.30-5.90); White Blood Cell Count 8.56 K/mm3 (4.00-11.30)
[2023-08-08 14:38] LABS: Influenza A, PCR NEGATIVE (NEGATIVE); Influenza B, PCR NEGATIVE (NEGATIVE); Resp Syncytial Virus, PCR NEGATIVE (NEGATIVE); SARS-Cov-2 (COVID-19) PCR, MMC NEGATIVE (NEGATIVE)
[2023-08-08 15:00] VITALS: BP 111/77
[2023-08-08] MEDS ORDERED: Isosorbide Mono30 MG PO (15:02)
[2023-08-08] MEDS ORDERED: Mucinex600 MG PO (15:26)
[2023-08-08] MEDS ORDERED: Amoxicillin875 MG PO (15:26)
[2023-08-08] MEDS ORDERED: ONDA4ODT MM (15:26)
== END 2023-08-08 15:37 | disposition home or self-care (01) ==
LOC: ER 13:35
PROVIDERS: Physician Assistant
DX: R05.9 Cough, unspecified (principal); R11.2 Nausea with vomiting, unspecified; Z87.01 Personal history of pneumonia (recurrent); E11.22 Type 2 diabetes mellitus with diabetic chronic kidney disease; I12.9 Hypertensive chronic kidney disease with stage 1 through stage 4 chronic kidney disease, or unspecified chronic kidney disease; N18.30 Chronic kidney disease, stage 3 unspecified; E11.40 Type 2 diabetes mellitus with diabetic neuropathy, unspecified; I25.10 Atherosclerotic heart disease of native coronary artery without angina pectoris; E78.5 Hyperlipidemia, unspecified; I25.2 Old myocardial infarction; Z79.02 Long term (current) use of antithrombotics/antiplatelets; Z79.4 Long term (current) use of insulin; Z79.82 Long term (current) use of aspirin; Z79.899 Other long term (current) drug therapy; Z88.8 Allergy status to other drugs, medicaments and biological substances; Z91.048 Other nonmedicinal substance allergy status
CPT/HCPCS: 0241U; 36415; 71046; 85025; 99283-25

== ENCOUNTER → 2024-04-05 | Outpatient (CLI) | payer OTHER ==
[~2024-04-05] MED LIST changes: +Amoxicillin875 MG PO; +Isosorbide Mono30 MG PO; +Mucinex600 MG PO
[2024-04-05 13:54] LABS: Adenovirus Not Detected (NOT DETECT); Coronavirus 229E Not Detected (NOT DETECT); Coronavirus HKU1 Not Detected (NOT DETECT); Coronavirus NL63 Not Detected (NOT DETECT)
[2024-04-05 13:55] LABS: Bordetella pertussis Not Detected (NOT DETECT); Chlamydophila pneumoniae Not Detected (NOT DETECT); Coronavirus OC43 Not Detected (NOT DETECT); Human Metapneumovirus Not Detected (NOT DETECT); Human Rhinovirus/Enterovirus Not Detected (NOT DETECT); Influenza A/2009-H1 Not Detected (NOT DETECT); Influenza A/H1 Not Detected (NOT DETECT); Influenza A/H3 Not Detected (NOT DETECT); Influenza B Not Detected (NOT DETECT); Mycoplasma pneumoniae Not Detected (NOT DETECT); Parainfluenza Virus 1 Not Detected (NOT DETECT); Parainfluenza Virus 2 Not Detected (NOT DETECT); Parainfluenza Virus 3 Not Detected (NOT DETECT); Parainfluenza Virus 4 Not Detected (NOT DETECT); Respiratory Syncytial Virus Not Detected (NOT DETECT); SARS-Cov-2 (COVID-19), BioFire Not Detected (NOT DETECT)
== END | disposition home or self-care (01) ==
LOC: LAB SHORT 10:00 → LAB 10:00
PROVIDERS: Nurse Practitioner Family
DX: J06.9 Acute upper respiratory infection, unspecified (principal)
CPT/HCPCS: 0202U

== ENCOUNTER 2024-04-22 11:15 | Observation (INO) | payer OTHER ==
[~2024-04-22] VITALS: Ht 172.7 cm; Wt 78.5 kg
[~2024-04-22 11:15] MED LIST changes: -LOSA50 PO
[2024-04-22] MEDS ORDERED: Ondansetron HCl 2 MG / ML 2ML Vial ONE (11:28)
[2024-04-22] MEDS ORDERED: NS 1,000 ML IV ONE (11:38)
[2024-04-22] MEDS ORDERED: Morphine Sulfate 4 MG/1 ML Injection IV ONE (11:40)
[2024-04-22] MEDS ORDERED: Ondansetron HCl 2 MG / ML 2ML Vial IV ONE (11:40)
[2024-04-22 11:45] LABS: Calcium, Ionized (POC) 1.17 mmol/L (1.10-1.46); Chloride (POC) 112 mmol/L (98-108); Creatinine (POC) 3.4 mg/dL (0.8-1.3); Glucose (ISTAT POC) 175 mg/dL (70-99); Hemoglobin (POC) 11.9 g/dL (13.5-17.5); Potassium (POC) 4.4 mmol/L (3.5-5.5); Sodium (POC) 140 mmol/L (135-148); Total CO2 (POC) 17 mmol/L (21-32)
[2024-04-22] MEDS ORDERED: NS 1,000 ML IV SCH (11:45)
[2024-04-22 11:54] LABS: BASOPHILS ABSOLUTE AUTO 0.07 K/mm3 (0.00-0.23); BASOPHILS PERCENT AUTO 1 % (0-2); EOSINOPHILS ABSOLUTE AUTO 0.25 K/mm3 (0.00-0.68); EOSINOPHILS PERCENT AUTO 2 % (0-6); Hematocrit 35.4 % (37.0-53.0); Hemoglobin 11.8 g/dL (13.5-17.5); IMMATURE GRAN ABSOLUTE AUTO 0.15 K/mm3 (0.00-0.10); IMMATURE GRAN PERCENT AUTO 1 % (0-1); LYMPHOCYTES ABSOLUTE AUTO 3.08 K/mm3 (0.84-5.20); LYMPHOCYTES PERCENT AUTO 24 % (21-46); MONOCYTES ABSOLUTE AUTO 0.87 K/mm3 (0.16-1.47); MONOCYTES PERCENT AUTO 7 % (4-13); Mean Corpuscular HGB Conc 33.3 g/dL (31.5-36.5); Mean Corpuscular Volume 87 fL (80-100); Mean Platelet Volume 10.3 fL (9.1-12.4); NEUTROPHILS ABSOLUTE AUTO 8.56 K/mm3 (1.96-9.15); NEUTROPHILS PERCENT AUTO 66 % (41-73); Platelet Count 350 K/mm3 (150-400); RDW Coefficient Variation 13.2 % (11.7-14.2); RDW Standard Deviation 41.3 fL (35.1-46.3); Red Blood Cell Count 4.07 M/mm3 (4.30-5.90); White Blood Cell Count 12.98 K/mm3 (4.00-11.30)
[2024-04-22 12:13] LABS: Albumin, Blood 2.5 g/dL (3.4-5.0); Albumin/Globulin Ratio 0.7 (0.8-1.8); Bilirubin, Total 0.4 mg/dL (0.1-1.0); Bun/Creatinine Ratio 13.5 (12.0-20.0); Calcium, Blood 8.5 mg/dL (8.5-10.1); Creatinine, Blood 3.25 mg/dL (0.60-1.20); Globulin, Blood 3.6 g/dL (2.2-4.0); Potassium, Blood 4.5 mmol/L (3.5-5.5); Total Protein, Blood 6.1 g/dL (6.4-8.2)
[2024-04-22] MEDS ORDERED: CALCITRIOL0.25 MC4 PO (12:26)
[2024-04-22] MEDS ORDERED: FLU VACC TS2024-25(6MOS UP)/PF 45 MCG/0.5 ML SYRINGE IM SCH (14:30)
[2024-04-22] MEDS ORDERED: Insulin Human Lispro 100 Units/ML 3ML Syringe SC SCH (16:30)
[2024-04-22] MEDS ORDERED: Famotidine 20 MG Tab PO SCH (21:00)
[2024-04-22] MEDS ORDERED: Insulin Glargine-Yfgn 100 Unit/mL 3 ML SYR SC SCH (21:00)
[2024-04-23] MEDS ORDERED: Calcium Carbonate 500 MG Tab Chew PO PRN ×2 (01:45→01:55)
[2024-04-23 05:07] LABS: BASOPHILS ABSOLUTE AUTO 0.03 K/mm3 (0.00-0.23); BASOPHILS PERCENT AUTO 0 % (0-2); EOSINOPHILS ABSOLUTE AUTO 0.26 K/mm3 (0.00-0.68); EOSINOPHILS PERCENT AUTO 3 % (0-6); Hematocrit 30.4 % (37.0-53.0); Hemoglobin 10.1 g/dL (13.5-17.5); IMMATURE GRAN ABSOLUTE AUTO 0.05 K/mm3 (0.00-0.10); IMMATURE GRAN PERCENT AUTO 1 % (0-1); LYMPHOCYTES ABSOLUTE AUTO 1.43 K/mm3 (0.84-5.20); LYMPHOCYTES PERCENT AUTO 15 % (21-46); MONOCYTES ABSOLUTE AUTO 0.75 K/mm3 (0.16-1.47); MONOCYTES PERCENT AUTO 8 % (4-13); Mean Corpuscular HGB 29.2 pg (26.0-34.0); Mean Corpuscular HGB Conc 33.2 g/dL (31.5-36.5); Mean Corpuscular Volume 88 fL (80-100); Mean Platelet Volume 10.3 fL (9.1-12.4); NEUTROPHILS ABSOLUTE AUTO 6.93 K/mm3 (1.96-9.15); NEUTROPHILS PERCENT AUTO 73 % (41-73); Platelet Count 267 K/mm3 (150-400); RDW Coefficient Variation 13.6 % (11.7-14.2); RDW Standard Deviation 43.5 fL (35.1-46.3); Red Blood Cell Count 3.46 M/mm3 (4.30-5.90); White Blood Cell Count 9.45 K/mm3 (4.00-11.30)
[2024-04-23 05:36] LABS: Albumin, Blood 2.1 g/dL (3.4-5.0); Albumin/Globulin Ratio 0.6 (0.8-1.8); Bilirubin, Total 0.3 mg/dL (0.1-1.0); Creatinine, Blood 3.21 mg/dL (0.60-1.20); Globulin, Blood 3.3 g/dL (2.2-4.0); Potassium, Blood 5.1 mmol/L (3.5-5.5); Total Protein, Blood 5.4 g/dL (6.4-8.2)
[2024-04-23] MEDS ORDERED: Insulin Human Lispro 100 Units/ML 3ML Syringe SC SCH (07:30)
[2024-04-23] MEDS ORDERED: Insulin Human Lispro 100 Units/ML 3ML Syringe SC ONE (07:45)
[2024-04-23] MEDS ORDERED: Citalopram Hydrobromide 20 MG Tab PO SCH (09:00)
[2024-04-23] MEDS ORDERED: Aspirin 81 MG TabEC PO SCH (09:00)
[2024-04-23] MEDS ORDERED: Enoxaparin 30 MG/0.3 ML SYR SC SCH (09:00)
[2024-04-23] MEDS ORDERED: LevETIRAcetam 500 MG Tab PO SCH (09:00)
[2024-04-23] MEDS ORDERED: Atorvastatin 40 MG Tab PO SCH (09:00)
[2024-04-23] MEDS ORDERED: Losartan Potassium 25 MG Tab PO SCH (09:00)
[2024-04-23 16:29] VITALS: BP 158/91
[2024-04-23] MEDS ORDERED: LOKELMA10 GM PO (16:54)
== END 2024-04-23 17:13 | disposition home or self-care (01) ==
LOC: ER 11:15 → ERHOLD 11:16
PROVIDERS: Emergency Medicine; Family Medicine; ADMIT Family Medicine
DX: R55 Syncope and collapse (principal); R79.89 Other specified abnormal findings of blood chemistry; I25.10 Atherosclerotic heart disease of native coronary artery without angina pectoris; I25.2 Old myocardial infarction; I12.9 Hypertensive chronic kidney disease with stage 1 through stage 4 chronic kidney disease, or unspecified chronic kidney disease; E10.22 Type 1 diabetes mellitus with diabetic chronic kidney disease; N18.30 Chronic kidney disease, stage 3 unspecified; F17.210 Nicotine dependence, cigarettes, uncomplicated; Z95.5 Presence of coronary angioplasty implant and graft; Z79.02 Long term (current) use of antithrombotics/antiplatelets; Z79.82 Long term (current) use of aspirin; Z79.899 Other long term (current) drug therapy; Z88.8 Allergy status to other drugs, medicaments and biological substances; Z90.49 Acquired absence of other specified parts of digestive tract
CPT/HCPCS: 36415; 71275; 74174; 80047; 80053; 82947; 83690; 83880; 84443; 84484; 85014; 85025; 93005; 93010; 93246; 93306; 96361; 96372-59; 96374-59; 99285-25; A9270; G0378; J1650; J1815; J2405; J7030; Q9967

== ENCOUNTER 2024-07-23 14:40 | Emergency (ER) | payer OTHER ==
[~2024-07-23] VITALS: Ht 172.7 cm; Wt 81.7 kg
[~2024-07-23 14:40] MED LIST changes: +CALCITRIOL0.25 MC4 PO; +LOKELMA10 GM PO
[2024-07-23] MEDS ORDERED: Ondansetron HCl 2 MG / ML 2ML Vial IV ONE (14:55)
[2024-07-23 14:56] LABS: Base Excess Venous -10.6 mmol/L; Bicarbonate Venous 17.2 mmol/L (24.0-30.0); PCO2 Venous 24.8 mmHg (38-42); pH Blood Venous 7.38 (7.34-7.37)
[2024-07-23 15:24] LABS: BASOPHILS ABSOLUTE AUTO 0.06 K/mm3 (0.00-0.23); BASOPHILS PERCENT AUTO 1 % (0-2); EOSINOPHILS ABSOLUTE AUTO 0.12 K/mm3 (0.00-0.68); EOSINOPHILS PERCENT AUTO 1 % (0-6); Hemoglobin 10.8 g/dL (13.5-17.5); IMMATURE GRAN PERCENT AUTO 1 % (0-1); LYMPHOCYTES ABSOLUTE AUTO 2.78 K/mm3 (0.84-5.20); LYMPHOCYTES PERCENT AUTO 25 % (21-46); MONOCYTES ABSOLUTE AUTO 0.96 K/mm3 (0.16-1.47); MONOCYTES PERCENT AUTO 9 % (4-13); Mean Corpuscular HGB 29.4 pg (26.0-34.0); Mean Corpuscular HGB Conc 33.8 g/dL (31.5-36.5); Mean Corpuscular Volume 87 fL (80-100); Mean Platelet Volume 10.2 fL (9.1-12.4); NEUTROPHILS ABSOLUTE AUTO 6.92 K/mm3 (1.96-9.15); NEUTROPHILS PERCENT AUTO 63 % (41-73); Platelet Count 416 K/mm3 (150-400); RDW Coefficient Variation 13.2 % (11.7-14.2); RDW Standard Deviation 42.4 fL (35.1-46.3); Red Blood Cell Count 3.67 M/mm3 (4.30-5.90); White Blood Cell Count 10.94 K/mm3 (4.00-11.30)
[2024-07-23 15:44] LABS: Albumin, Blood 2.4 g/dL (3.4-5.0); Albumin/Globulin Ratio 0.6 (0.8-1.8); Bilirubin, Total 0.5 mg/dL (0.1-1.0); Bun/Creatinine Ratio 18.3 (12.0-20.0); Calcium, Blood 8.2 mg/dL (8.5-10.1); Creatinine, Blood 4.1 mg/dL (0.60-1.20); Globulin, Blood 3.9 g/dL (2.2-4.0); Potassium, Blood 4.2 mmol/L (3.5-5.5); Total Protein, Blood 6.3 g/dL (6.4-8.2)
[2024-07-23] MEDS ORDERED: Lactated Ringer's 1,000 ML IV ONE (16:25)
[2024-07-23] MEDS ORDERED: NS 1,000 ML IV SCH (16:25)
[2024-07-23 16:30] VITALS: BP 129/77
[2024-07-23 19:40] LABS: CORONAVIRUS COVID-19 AG Negative (NEGATIVE); INFLUENZA A AG Negative (NEGATIVE); INFLUENZA B AG Negative (NEGATIVE)
[2024-07-23] MEDS ORDERED: RX Prepack 2 Tabs Ondansetron ODT 4MG UD ONE (19:50)
[2024-07-23] MEDS ORDERED: ONDA4ODT MM (19:50)
== END 2024-07-23 21:07 | disposition home or self-care (01) ==
LOC: ER 14:40
PROVIDERS: Emergency Medicine
DX: R42 Dizziness and giddiness (principal); R79.89 Other specified abnormal findings of blood chemistry; R07.9 Chest pain, unspecified; I25.10 Atherosclerotic heart disease of native coronary artery without angina pectoris; N18.9 Chronic kidney disease, unspecified; Z79.01 Long term (current) use of anticoagulants; Z79.82 Long term (current) use of aspirin; Z79.4 Long term (current) use of insulin; Z79.899 Other long term (current) drug therapy
CPT/HCPCS: 36415; 71046; 80053; 82803; 83605; 84484; 85025; 87040; 87428-QW; 93005; 93010; 96374; 99285-25; A9270; J2405; J7030; J7120

== ENCOUNTER 2024-11-16 22:21 | Observation (INO) | payer OTHER ==
[~2024-11-16] VITALS: Ht 172.7 cm; Wt 76.2 kg
[2024-11-16] MEDS ORDERED: NS 1,000 ML IV SCH (22:45)
[2024-11-16 23:00] LABS: BASOPHILS ABSOLUTE AUTO 0.04 K/mm3 (0.00-0.23); BASOPHILS PERCENT AUTO 0 % (0-2); EOSINOPHILS ABSOLUTE AUTO 0.25 K/mm3 (0.00-0.68); EOSINOPHILS PERCENT AUTO 2 % (0-6); Hematocrit 26.6 % (37.0-53.0); IMMATURE GRAN ABSOLUTE AUTO 0.14 K/mm3 (0.00-0.10); IMMATURE GRAN PERCENT AUTO 1 % (0-1); LYMPHOCYTES ABSOLUTE AUTO 1.43 K/mm3 (0.84-5.20); LYMPHOCYTES PERCENT AUTO 13 % (21-46); MONOCYTES ABSOLUTE AUTO 0.87 K/mm3 (0.16-1.47); MONOCYTES PERCENT AUTO 8 % (4-13); Mean Corpuscular HGB 28.5 pg (26.0-34.0); Mean Corpuscular HGB Conc 33.8 g/dL (31.5-36.5); Mean Corpuscular Volume 84 fL (80-100); Mean Platelet Volume 10.1 fL (9.1-12.4); NEUTROPHILS ABSOLUTE AUTO 8.08 K/mm3 (1.96-9.15); NEUTROPHILS PERCENT AUTO 75 % (41-73); Platelet Count 331 K/mm3 (150-400); RDW Coefficient Variation 13.2 % (11.7-14.2); RDW Standard Deviation 40.6 fL (35.1-46.3); Red Blood Cell Count 3.16 M/mm3 (4.30-5.90); White Blood Cell Count 10.81 K/mm3 (4.00-11.30)
[2024-11-16 23:39] LABS: Albumin, Blood 1.8 g/dL (3.4-5.0); Albumin/Globulin Ratio 0.5 (0.8-1.8); Bilirubin, Total 0.2 mg/dL (0.1-1.0); Bun/Creatinine Ratio 13.7 (12.0-20.0); Creatinine, Blood 7.25 mg/dL (0.60-1.20); Globulin, Blood 3.7 g/dL (2.2-4.0); Potassium, Blood 4.5 mmol/L (3.5-5.5); Total Protein, Blood 5.5 g/dL (6.4-8.2)
[2024-11-17] MEDS ORDERED: NS 1,000 ML IV SCH (00:25)
[2024-11-17] MEDS ORDERED: Prochlorperazine Edisylate 10 mg Vial IV ONE (00:25)
[2024-11-17] MEDS ORDERED: Acetaminophen 500 MG Tab PO ONE (00:25)
[2024-11-17] MEDS ORDERED: Dexamethasone Sod Phos 10 MG/ML 1ML VIAL IV ONE (00:25)
[2024-11-17] MEDS ORDERED: DiphenhydrAMINE HCl 50 MG/ML 1ML Vial IV ONE (00:25)
[2024-11-17] MEDS ORDERED: Ondansetron 4 MG TAB PO PRN (02:10)
[2024-11-17] MEDS ORDERED: Magnesium Hydroxide Conc 10 ML UDC PO PRN (02:10)
[2024-11-17] MEDS ORDERED: Acetaminophen 325 MG TABLET PO PRN (02:20)
[2024-11-17 05:30] LABS: BASOPHILS ABSOLUTE AUTO 0.05 K/mm3 (0.00-0.23); BASOPHILS PERCENT AUTO 1 % (0-2); EOSINOPHILS ABSOLUTE AUTO 0.26 K/mm3 (0.00-0.68); EOSINOPHILS PERCENT AUTO 2 % (0-6); Hematocrit 24.5 % (37.0-53.0); Hemoglobin 8.2 g/dL (13.5-17.5); IMMATURE GRAN ABSOLUTE AUTO 0.11 K/mm3 (0.00-0.10); IMMATURE GRAN PERCENT AUTO 1 % (0-1); LYMPHOCYTES ABSOLUTE AUTO 2.05 K/mm3 (0.84-5.20); LYMPHOCYTES PERCENT AUTO 19 % (21-46); MONOCYTES ABSOLUTE AUTO 0.97 K/mm3 (0.16-1.47); MONOCYTES PERCENT AUTO 9 % (4-13); Mean Corpuscular HGB Conc 33.5 g/dL (31.5-36.5); Mean Corpuscular Volume 87 fL (80-100); Mean Platelet Volume 10.2 fL (9.1-12.4); NEUTROPHILS ABSOLUTE AUTO 7.43 K/mm3 (1.96-9.15); NEUTROPHILS PERCENT AUTO 68 % (41-73); Platelet Count 302 K/mm3 (150-400); RDW Coefficient Variation 13.2 % (11.7-14.2); RDW Standard Deviation 41.7 fL (35.1-46.3); RETICULOCYTE ABSOLUTE 0.0473 M/mm3 (0.0200-0.1100); RETICULOCYTE COUNT PERCENT 1.67 % (0.50-2.50); Red Blood Cell Count 2.83 M/mm3 (4.30-5.90); White Blood Cell Count 10.87 K/mm3 (4.00-11.30)
[2024-11-17 06:24] LABS: Albumin, Blood 1.7 g/dL (3.4-5.0); Anion Gap 14 mmol/L (3-11); Blood Urea Nitrogen 100 mg/dL (8-24); Bun/Creatinine Ratio 14.8 (12.0-20.0); CO2, Blood 14 mmol/L (21-32); Calcium, Blood 6.8 mg/dL (8.5-10.1); Chloride, Blood 112 mmol/L (98-108); Creatinine, Blood 6.76 mg/dL (0.60-1.20); Ferritin, Serum 59 ng/mL (26-388); Glomerular Filtration Rate 9 (60-); Glucose, Blood 190 mg/dL (70-99); Iron Serum 70 ug/dL (65-175); Percent Saturation 20.2 % (20.0-50.0); Phosphorus, Blood 6.8 mg/dL (2.5-4.9); Potassium, Blood 4.7 mmol/L (3.5-5.5); Sodium, Blood 135 mmol/L (136-145); Total Iron Binding Capacity 346 ug/dL (250-450)
[2024-11-17] MEDS ORDERED: Insulin Human Lispro 100 Units/ML 3ML Syringe SC SCH ×2 (07:30→18:00)
[2024-11-17] MEDS ORDERED: Insulin Glargine-Yfgn 100 Unit/mL 3 ML SYR SC SCH ×2 (09:00)
[2024-11-17] MEDS ORDERED: Clopidogrel Bisulfate 75 MG Tab PO SCH (09:00)
[2024-11-17] MEDS ORDERED: Atorvastatin 40 MG Tab PO SCH (09:00)
[2024-11-17] MEDS ORDERED: Isosorbide Mononitrate 30 MG TABCR PO SCH (09:00)
[2024-11-17] MEDS ORDERED: Sennosides 8.6 MG Tab PO SCH (09:00)
[2024-11-17] MEDS ORDERED: Aspirin 81 MG Chew PO SCH (09:00)
[2024-11-17 10:41] LABS: CHOL/HDL RATIO 3.8; Cholesterol 166 mg/dL (50-200); HDL Cholesterol 44 mg/dL (>39); LDL/HDL RATIO 2.2; Low Density Lipoprotein Chol 96 mg/dL (0-110); Triglycerides 130 mg/dL (30-160); Very Low Density Lipoprot Chol 26 mg/dL (6-32)
[2024-11-17 13:55] VITALS: BP 151/87
--- NOTE | 2024-11-17 14:03 | NUR ---
NEPHROLOGY CONSULT CLARIFICATION NOTE: PATIENT HAS ORDERED FOR NEPHROLOGY CONSULT WAS PLACED AT 0208 IN ER. AT 1345-RECEIVED REPORTS FROM FROM AISSATOU JOHNSON RN AND ASKED IF THE NEPHROLOGY CONSULT WAS ALREADY CALLED IN OR IF THE PATIENT HAS BEEN SEEING c NEPHROLOGY. PER ALEX, SHE IS NOT AWARE OF THE CONSULT WAS PLACED. THIS RN CALLED DR. CLARK AT 1353 TO CLARIFY NEPHROLOGY CONSULT FOR CKD STAGE 5, MARIALUISA. PER DR. CLARK CANCEL NEPHROLOGY CONSULT, PATIENT ALREADY TAKING CARE BY NEPHROLOGY OUTPT ([facility]). PATIENT ARRIVED TO ROOM VIA WHEELCHAIR AT 1355 FROM ER FOR DX'S OF CVA. PATIENT TRANSFERRED TO BED INDEPENDENTLY. ADMISSION VITALS TAKEN.
[2024-11-17 15:30] VITALS: BP 148/81
--- NOTE | 2024-11-17 16:10 | NUR ---
ASSESSMENT NOTE: PATIENT A/OX4, SPEECH CLEAR, ANSWER TO QUESTIONS APPROPRAITELY, PERRLA WNL, NO FACIAL DROOP, SENSATION INTACT AND STRENGTH ARE EQUAL TO ALL EXTREMITIES c NO DEFICIT NOTED. PATIENT REPORTS, DR. Roe (NEPHROLOGY) FOLLOWING HIS CARE FOR 2 YEARS NOW, LAST APPOINTMENT A MONTH AGO AND THE PLAN WAS POSSIBLY STARTED ON DIALYSIS. PATIENT ALSO REPORTS HIM AND DR. Roe HAVING CONVERSATION OF AN OPTION OF PERITONEAL DIALYSIS, SO HE CAN MANAGE HIS OWN TX AT HOME, BUT HE NEEDS TO GO TO [place] TO HAVE A PD CATHETER PLACEMENT AND IT COULD HAPPEN IN A MONTH. PATIENT DENIES CP/PRESSURE, SOB, N/V AND DIZZINESS. PATIENT HAS NO TELE, RA, LUNGS CLEAR. PATIENT AMBULATED TO BATHROOM AND BACK TO BED INDEPENDENTLY, STEADY GAIT c NO ASSISTIVE DEVICE NEEDED. SCD'S IN PLACED TO BLE'S. CALL LIGHT IN REACH.
--- NOTE | 2024-11-17 17:27 | NUR ---
ADMISSION NOTE: PATIENT ARRIVED TO [facility] @ 1355 VIA WHEELCHAIR c COTTON BREEDER. PATIENT WALKED FROM WHEELCHAIR TO BED c GAIT STEADY. ADMISSION FORMS, MED REC, AND ASSESSMENT COMPLETED. PATIENT ORIENTED TO ROOM AND CALL LIGHT. NO SIGNS OF DEFICITS WHEN DOING ASSESSMENT. PATIENT IS A&OX4, PLEASANT AND COOPERTIVE c CARE, VERBALIZES NEEDS AND CALLS APPROPRIATELY. PATIENT NOT ON TELE AND DENIES ANY CHEST PAIN/PRESSURE. PATIENTS MOTOR AND FINE MOTOR SKILLS ARE INTACT. STRENGTH IS EQUAL IN ALL EXTREMITIES ALONG WITH SENSATION. PATIENT DENIES ANY NUMBESS OR TINGLING IN UPPER OR LOWER EXTREMITIES. PIV IN L AC, AND R AC SALINE LOCKED. PATIENT ON RA LUNG SOUNDS ARE CLEAR AND RR ARE EVEN AND UNLABORED. BOWEL SOUNDS HEARD IN ALL QUADRANTS. REPORTS LAST BM WAS THIS AM. PATIENT CAN AMBULATE IND IN ROOM SHOWS NO SIGNS OF WEAKNESS OR AN UNSTEADY GAIT. BED IN LOWEST POSITION, SCDS ARE IN PLACE, CALL LIGHT IN REACH.
--- NOTE | 2024-11-17 17:32 | NUR ---
HIGH BLOOD SUGAR NOTE: PATIENT BLOOD SUGAR ACCU CHECK AT 1702 IS 399, RECEIVED 5 UNITS HUMALOG ON LOW SS COVERAGE AND NOTIFIED DR. CLARK. PER DR. CLARK SHE WILL CHANGED THE ORDER.
[2024-11-17 20:50] VITALS: BP 142/87
[2024-11-17] MEDS ORDERED: Famotidine 20 MG Tab PO SCH ×2 (21:50→21:53)
[2024-11-17] MEDS ORDERED: Insulin Human Lispro 100 Units/ML 3ML Syringe SC ONE (23:55)
[2024-11-18 04:40] VITALS: BP 155/90
[2024-11-18 05:33] LABS: BASOPHILS ABSOLUTE AUTO 0.04 K/mm3 (0.00-0.23); BASOPHILS PERCENT AUTO 1 % (0-2); EOSINOPHILS ABSOLUTE AUTO 0.33 K/mm3 (0.00-0.68); EOSINOPHILS PERCENT AUTO 4 % (0-6); Hemoglobin 8.6 g/dL (13.5-17.5); IMMATURE GRAN PERCENT AUTO 1 % (0-1); LYMPHOCYTES ABSOLUTE AUTO 1.79 K/mm3 (0.84-5.20); LYMPHOCYTES PERCENT AUTO 21 % (21-46); MONOCYTES ABSOLUTE AUTO 0.74 K/mm3 (0.16-1.47); MONOCYTES PERCENT AUTO 9 % (4-13); Mean Corpuscular HGB 28.2 pg (26.0-34.0); Mean Corpuscular HGB Conc 33.1 g/dL (31.5-36.5); Mean Corpuscular Volume 85 fL (80-100); Mean Platelet Volume 10.4 fL (9.1-12.4); NEUTROPHILS ABSOLUTE AUTO 5.37 K/mm3 (1.96-9.15); NEUTROPHILS PERCENT AUTO 64 % (41-73); Platelet Count 317 K/mm3 (150-400); RDW Coefficient Variation 13.3 % (11.7-14.2); RDW Standard Deviation 41.3 fL (35.1-46.3); Red Blood Cell Count 3.05 M/mm3 (4.30-5.90); White Blood Cell Count 8.37 K/mm3 (4.00-11.30)
[2024-11-18 05:52] LABS: Bun/Creatinine Ratio 14.2 (12.0-20.0); Calcium, Blood 7.3 mg/dL (8.5-10.1); Creatinine, Blood 7.4 mg/dL (0.60-1.20); Potassium, Blood 4.4 mmol/L (3.5-5.5)
--- NOTE | 2024-11-18 06:15 | NUR ---
ALEXA IS A&OX4. VSS, NO ACUTE EVENTS OVERNIGHT. BLOOD SUGAR CONTROL IMPROVED THIS MORNING. PT TOOK A SHOWER LAST NIGHT, INDEPENDENT IN THE ROOM, IV'S TO BILATERAL AC. HE IS TOLERATING PO INTAKE WELL AND REPORTS RESOLUTION OF THE SYMPTOMS FOR WHICH HE PRESENTED TO THE ER. PT REPORTS URINATING A VERY LARGE AMOUNT FIRST THING IN THE MORNING, THEN SMALL AMOUNTS FREQUENTLY THROUGHOUT THE DAY. HE STATES HE IS IN THE PROCESS OF HAVING OUTPATIENT PERITONEAL DIALYSIS SET UP AND THAT HE IS A PATIENT OF DR. CORTEZ. HE IS LYING IN BED WITH THE CALL LIGHT IN REACH. WILL GIVE REPORT TO DAY SHIFT RN.
[2024-11-18 07:32] VITALS: BP 180/101
[2024-11-18 10:57] VITALS: BP 148/83
[2024-11-18] MEDS ORDERED: AmLODIPine Besylate 5 MG Tab PO SCH ×2 (11:00)
[2024-11-18] MEDS ORDERED: Losartan Potassium 50 MG Tab PO SCH (11:00)
[2024-11-18] MEDS ORDERED: Insulin Human Lispro 100 Units/ML 3ML Syringe SC SCH (11:30)
[2024-11-18 13:34] VITALS: BP 119/71
[2024-11-18 15:17] VITALS: BP 126/68
--- NOTE | 2024-11-18 16:48 | NUR ---
SHIFT SUMMARY: PATIENT HAS HAD NO CHANGES THIS SHIFT. PATIENT DENIES CP/PRESURE, SOB, N/V AND DIZZINESS. PATIENT HAD HIS ECHO DONE TODAY, AWAITING FOR RESULT. PATIENT RECEIVED SCHEDULED MEDS PER EMAR. VITAL SIGNS REVIEWED. PATIENT HAS GREAT APPETITE, CONT OF BLADDER, AMBULATES TO BATHROOM INDEPENDENTLY. PATIENT HAS HAD NO COMPLAINTS OR DENIES NEW CONCERNED THIS SHIFT. PATIENT A/OX4, PLEASANT AND COOPERATIVE c CARE, CALLS APPROPRIATELY AND ABLE TO MAKE NEEDS KNOWN. CALL LIGHT IN REACH.
[2024-11-18] MEDS ORDERED: AMLO5 PO (19:04)
--- NOTE | 2024-11-18 22:50 | NUR ---
PT A&OX4 DISCUSSED DICHARGE PLAN, IVS X 2 REMOVED WITH TIP INTACT, PT WHEELED OUT BY LOCAL COMPANY TANKER DRIVER. DENIES PAIN OR NEEDS. NO ACUTE CHANGES NOTED.
== END 2024-11-18 20:05 | disposition home or self-care (01) ==
LOC: ER 22:21 → ERHOLD 22:22 → MEDS 11-17 13:55
PROVIDERS: Family Medicine; Student in an Organized Health Care Education/Training Program; ADMIT Internal Medicine
DX: I63.9 Cerebral infarction, unspecified (principal); I25.10 Atherosclerotic heart disease of native coronary artery without angina pectoris; I25.2 Old myocardial infarction; E78.5 Hyperlipidemia, unspecified; E10.40 Type 1 diabetes mellitus with diabetic neuropathy, unspecified; E10.22 Type 1 diabetes mellitus with diabetic chronic kidney disease; I12.0 Hypertensive chronic kidney disease with stage 5 chronic kidney disease or end stage renal disease; N18.5 Chronic kidney disease, stage 5; D64.9 Anemia, unspecified; Z95.5 Presence of coronary angioplasty implant and graft; Z87.891 Personal history of nicotine dependence; Z88.8 Allergy status to other drugs, medicaments and biological substances; Z79.82 Long term (current) use of aspirin; Z79.899 Other long term (current) drug therapy; Z79.4 Long term (current) use of insulin
CPT/HCPCS: 36415; 51798; 70450; 70496; 70498; 70551; 80048; 80053; 80061; 80069; 82607; 82728; 82746; 82947; 83036; 83540; 83550; 85025; 85045; 93005; 93010; 93306; 96360-59; 99285-25; A9270; G0378; J1815; J7030; Q9967

== ENCOUNTER 2024-12-31 18:03 | Inpatient (IN) | payer OTHER ==
[~2024-12-31] VITALS: Ht 172.7 cm; Wt 81.9 kg
[~2024-12-31 18:03] MED LIST changes: +AMLO5 PO
[2024-12-31 18:29] LABS: BASOPHILS ABSOLUTE AUTO 0.04 K/mm3 (0.00-0.23); BASOPHILS PERCENT AUTO 0 % (0-2); EOSINOPHILS ABSOLUTE AUTO 0.24 K/mm3 (0.00-0.68); EOSINOPHILS PERCENT AUTO 2 % (0-6); Hematocrit 21.0 % (37.0-53.0); Hemoglobin 6.7 g/dL (13.5-17.5); IMMATURE GRAN ABSOLUTE AUTO 0.12 K/mm3 (0.00-0.10); IMMATURE GRAN PERCENT AUTO 1 % (0-1); LYMPHOCYTES ABSOLUTE AUTO 1.33 K/mm3 (0.84-5.20); LYMPHOCYTES PERCENT AUTO 13 % (21-46); MONOCYTES ABSOLUTE AUTO 0.87 K/mm3 (0.16-1.47); MONOCYTES PERCENT AUTO 8 % (4-13); Mean Corpuscular HGB Conc 31.9 g/dL (31.5-36.5); Mean Corpuscular Volume 89 fL (80-100); NEUTROPHILS ABSOLUTE AUTO 7.72 K/mm3 (1.96-9.15); NEUTROPHILS PERCENT AUTO 75 % (41-73); NRBC ABSOLUTE 0.00 K/mm3 (0.00-0.02); NRBC Auto 0.0 /100 WBC (0.0-0.2); Platelet Count 302 K/mm3 (150-400); RDW Coefficient Variation 14.4 % (11.7-14.2); RDW Standard Deviation 46.7 fL (35.1-46.3)
[2024-12-31 18:33] LABS: Calcium, Ionized (POC) 0.69 mmol/L (1.10-1.46); Chloride (POC) 109 mmol/L (98-108); Creatinine (POC) 10.6 mg/dL (0.8-1.3); Glucose (ISTAT POC) 540 mg/dL (70-99); Hematocrit (POC) 19.0 % (41.0-53.0); Hemoglobin (POC) 6.5 g/dL (13.5-17.5); Potassium (POC) 5.2 mmol/L (3.5-5.5); Sodium (POC) 135 mmol/L (135-148); Total CO2 (POC) 13 mmol/L (21-32)
[2024-12-31] MEDS ORDERED: Ondansetron HCl 2 MG / ML 2ML Vial IV ONE (18:55)
[2024-12-31] MEDS ORDERED: Morphine Sulfate 4 MG/1 ML Injection IV ONE (18:55)
[2024-12-31 19:25] LABS: Alanine Aminotransfer (ALT/SGP 18.0 U/L (12-78); Albumin, Blood 2.1 g/dL (3.4-5.0); Albumin/Globulin Ratio 0.5 (0.8-1.8); Anion Gap 16.0 mmol/L (3-11); Aspartate Aminotrans (AST/SGOT 9.0 U/L (12-37); Bilirubin, Total 0.3 mg/dL (0.1-1.0); Blood Urea Nitrogen 108.0 mg/dL (8-24); CO2, Blood 16.0 mmol/L (21-32); Calcium, Blood 5.8 mg/dL (8.5-10.1); Chloride, Blood 108.0 mmol/L (98-108); Creatinine, Blood 10.4 mg/dL (0.60-1.20); Globulin, Blood 3.9 g/dL (2.2-4.0); Glucose, Blood 547.0 mg/dL (70-99); Potassium, Blood 5.1 mmol/L (3.5-5.5); Sodium, Blood 135.0 mmol/L (136-145); Total Protein, Blood 6.0 g/dL (6.4-8.2)
[2024-12-31] MEDS ORDERED: Lidocaine 2% Viscous Soln 15 ML UDC PO ONE (20:45)
[2024-12-31] MEDS ORDERED: Metoclopramide HCl 5MG / ML 2ML Vial IV ONE (22:05)
[2024-12-31] MEDS ORDERED: Ondansetron HCl 2 MG / ML 2ML Vial IV PRN (22:15)
[2025-01-01] VITALS (24 sets, daily range): BP systolic 131–187; BP diastolic 84–111
[2025-01-01] MEDS ORDERED: NS 1,000 ML IV SCH (01:30)
[2025-01-01] MEDS ORDERED: Insulin Glargine-Yfgn 100 Unit/mL 3 ML SYR SC ONE (03:00)
[2025-01-01 03:26] LABS: pH Blood Venous 7.20 (7.34-7.37)
[2025-01-01 03:59] LABS: Glucose, Blood 314.0 mg/dL (70-99)
[2025-01-01] MEDS ORDERED: Labetalol HCL 5 MG/ML 4ML Injection (Single Dose) IV PRN (04:05)
[2025-01-01 04:21] LABS: Hematocrit 27.6 % (37.0-53.0); Hemoglobin 8.8 g/dL (13.5-17.5); Mean Corpuscular HGB Conc 31.9 g/dL (31.5-36.5); Mean Corpuscular Volume 89 fL (80-100); NRBC ABSOLUTE 0.00 K/mm3 (0.00-0.02); NRBC Auto 0.0 /100 WBC (0.0-0.2); Platelet Count 337 K/mm3 (150-400); RDW Coefficient Variation 14.5 % (11.7-14.2); RDW Standard Deviation 46.8 fL (35.1-46.3)
[2025-01-01] MEDS ORDERED: HydrALAZINE HCl 20 MG / ML 1ML Vial IV PRN (04:35)
[2025-01-01 04:38] LABS: Prothrombin Time Results 10.9 Sec (9.7-11.5)
[2025-01-01 04:53] LABS: Magnesium, Blood 2.1 mg/dL (1.6-2.4)
[2025-01-01 05:00] LABS: Anion Gap 14.0 mmol/L (3-11); Blood Urea Nitrogen 107.0 mg/dL (8-24); CO2, Blood 18.0 mmol/L (21-32); Calcium, Blood 6.2 mg/dL (8.5-10.1); Chloride, Blood 108.0 mmol/L (98-108); Creatinine, Blood 9.62 mg/dL (0.60-1.20); Glucose, Blood 297.0 mg/dL (70-99); Potassium, Blood 5.4 mmol/L (3.5-5.5); Sodium, Blood 135.0 mmol/L (136-145)
--- NOTE | 2025-01-01 05:57 | NUR ---
PT ARRIVED TO ICU 15, PCU STATUS, AT APPROX 0330. PT IS A&O X4, AMBULATES WITH STAND BY/WALKER AND X1 ASSIST. UP TO BATHROOM FOR BM, AND TO VOID. PT DENIES CP AT THIS TIME. PT PLACED ON MONITOR - NSR. BP ELEVATED, ORDERS TO TREAT WITH HYDRALAZINE >170 SBP. PT IS ON RA. PT IS NPO FOR PENDING PERMACATH TODAY. PIV X2. PT DOES NOT APPEAR IN ANY ACUTE DISTRESS.
[2025-01-01] MEDS ORDERED: Insulin Human Lispro 100 Units/ML 3ML Syringe SC SCH ×3 (06:00→16:30)
--- NOTE | 2025-01-01 08:23 | NUR ---
CARE ASSUMPTION DURING BEDSIDE SHIFT REPORT W NOC RN THE PT IS LYING IN BED AWAKENING EASILY TO MY VOICE. PT IS ALERT AND ORIENTYED COMMUNICATING APPROPRIATELY W STAFF. PT DENIES ANY PAIN OR NAUSEA AT THIS TIME. SPO2 >94% ON RM AIR. PT DENYING ANY DYSPNEA. BP ELEVATED W SBP IN THE 150'S-160'S W SCHEDULED BP MEDICATION THIS AM. MONITOR SHOWING SR 90'S.
[2025-01-01 08:52] LABS: Anti-Xa UFH, PHA Monitoring <0.10 IU/mL
[2025-01-01] MEDS ORDERED: Dose Adjust by Pharmacy XX STA ×2 (08:53→17:13)
[2025-01-01] MEDS ORDERED: Heparin Sodium,Porcine/0.5 NS 500 ML IV SCH (08:55)
[2025-01-01] MEDS ORDERED: Isosorbide Mononitrate 30 MG TABCR PO SCH (09:00)
[2025-01-01] MEDS ORDERED: Heparin Sodium,Porcine 5,000 UNIT/0.5 ML SDV SC SCH (09:00)
[2025-01-01] MEDS ORDERED: Insulin Glargine-Yfgn 100 Unit/mL 3 ML SYR SC SCH ×2 (09:00→21:00)
[2025-01-01 12:11] LABS: Ferritin, Serum 87.0 ng/mL (26-388); Total Iron Binding Capacity 205.0 ug/dL (250-450)
--- NOTE | 2025-01-01 15:37 | NUR ---
UPDATE FLUOROSCOPE OPERATOR NOTIFIED OF TROPONINS STILL TRENDING UP WELL PT REPORTING 3/10 CP THAT WAS RELIEVED W SL NITRO TABLET X2. PROVIDER INSTRUCTING TO MAKE PT NPO AT MIDNIGHT FOR POSSIBLE CUT AND PRINT MACHINE OPERATOR PROCEDURE. DR. LOPEZ CALLED AND NOTIFIED OF THIS BY THIS RN. DR. LOPEZ REPORTING THAT SHE WILL CONTACT NEPHROLOGY AND CALL THIS RN BACK. HOSPICE TEAM LEAD NOTIFIED OF CHANGES.
--- NOTE | 2025-01-01 16:26 | NUR ---
Pt. is awake in bed and welcomes my visit. Pt. is pleasant. Facilitated a lengthy life review and Pt. spoke about the impact of his scientologist. Considered other matters of patricia and belief. Also considered matters of his family support system. Listesent with interest and empathy. Pt. displayed evidence of awareness and understanding. Prayed with the pt. Pt. verbalized gratitude for the spiritual care visit, and welcomed this industrial manufacturing technician to return.
[2025-01-01] MEDS ORDERED: Heparin Sodium 5000 Units/ML 1ML MDV IV ONE (17:15)
[2025-01-01 21:08] LABS: Albumin, Blood 2.1 g/dL (3.4-5.0); Anion Gap 17 mmol/L (3-11); Blood Urea Nitrogen 101 mg/dL (8-24); CO2, Blood 19 mmol/L (21-32); Calcium, Blood 6.5 mg/dL (8.5-10.1); Chloride, Blood 106 mmol/L (98-108); Creatinine, Blood 9.74 mg/dL (0.60-1.20); Glucose, Blood 160 mg/dL (70-99); Phosphorus, Blood 8.3 mg/dL (2.5-4.9); Potassium, Blood 4.7 mmol/L (3.5-5.5); Sodium, Blood 137 mmol/L (136-145)
[2025-01-02] MEDS ORDERED: Dose Adjust by Pharmacy XX STA ×2 (00:13→05:52)
[2025-01-02 04:12] VITALS: BP 151/92
[2025-01-02] MEDS ORDERED: FentaNYL Citrate 50 MCG/ML 2 ML Injection IV PRN (04:45)
[2025-01-02 05:13] LABS: BASOPHILS ABSOLUTE AUTO 0.04 K/mm3 (0.00-0.23); BASOPHILS PERCENT AUTO 0 % (0-2); EOSINOPHILS ABSOLUTE AUTO 0.46 K/mm3 (0.00-0.68); EOSINOPHILS PERCENT AUTO 4 % (0-6); Hematocrit 23.7 % (37.0-53.0); Hemoglobin 7.8 g/dL (13.5-17.5); IMMATURE GRAN ABSOLUTE AUTO 0.08 K/mm3 (0.00-0.10); IMMATURE GRAN PERCENT AUTO 1 % (0-1); LYMPHOCYTES ABSOLUTE AUTO 1.36 K/mm3 (0.84-5.20); LYMPHOCYTES PERCENT AUTO 12 % (21-46); MONOCYTES ABSOLUTE AUTO 0.94 K/mm3 (0.16-1.47); MONOCYTES PERCENT AUTO 9 % (4-13); Mean Corpuscular HGB Conc 32.9 g/dL (31.5-36.5); Mean Corpuscular Volume 86 fL (80-100); NEUTROPHILS ABSOLUTE AUTO 8.24 K/mm3 (1.96-9.15); NEUTROPHILS PERCENT AUTO 74 % (41-73); NRBC ABSOLUTE 0.00 K/mm3 (0.00-0.02); NRBC Auto 0.0 /100 WBC (0.0-0.2); Platelet Count 298 K/mm3 (150-400); RDW Coefficient Variation 14.5 % (11.7-14.2); RDW Standard Deviation 45.1 fL (35.1-46.3)
[2025-01-02] MEDS ORDERED: Pantoprazole Sodium 40 MG Injection IV SCH (06:00)
[2025-01-02 06:20] LABS: Alanine Aminotransfer (ALT/SGP 18.0 U/L (12-78); Albumin, Blood 2.0 g/dL (3.4-5.0); Albumin/Globulin Ratio 0.5 (0.8-1.8); Anion Gap 13.0 mmol/L (3-11); Aspartate Aminotrans (AST/SGOT 18.0 U/L (12-37); Bilirubin, Total 0.3 mg/dL (0.1-1.0); Blood Urea Nitrogen 100.0 mg/dL (8-24); CO2, Blood 18.0 mmol/L (21-32); Calcium, Blood 6.2 mg/dL (8.5-10.1); Chloride, Blood 108.0 mmol/L (98-108); Creatinine, Blood 9.54 mg/dL (0.60-1.20); Globulin, Blood 4.0 g/dL (2.2-4.0); Glucose, Blood 91.0 mg/dL (70-99); Potassium, Blood 4.7 mmol/L (3.5-5.5); Sodium, Blood 134.0 mmol/L (136-145); Total Protein, Blood 6.0 g/dL (6.4-8.2)
--- NOTE | 2025-01-02 06:54 | NUR ---
SHIFT SUMMARY: PT IS A&OX4, PLEASANT AND COOPERATIVE WITH CARE. AWAKE MUCH OF THE NOC. HTN, SYS >160 ON RA. SR IN THE 90'S. DENIED CP/PRESSURE T/O SHIFT. C/O PAIN TO HIS RIGHT KNEE, MEDICATED PER EMAR. BLOOD GLUCOSE WNL, PT REFUSED HIS 12 UNITS OF HS GLARGINE D/T BEING NPO AFTER MN. BG WITH AM LABS WAS 91. HEPARIN GTT INFUSING PER ORDER. TOLERATING A CONS CARB DIET, NPO AFTER MN FOR ANGIOGRAM THIS MORNING. SBA TO BR. VOIDING ADEQUATE AMOUNTS OF CLEAR YELLOW URINE, INDEPENDENTLY IN URINAL. NO BM THIS SHIFT. REPOSITIONS HIMSELF IN BED. BED IN LOWEST POSITION, CALL LIGHT WITHIN REACH. CALLS APPROPRIATELY AND IS ABLE TO ADVOCATE NEEDS EFFECTIVELY.
[2025-01-02 08:43] VITALS: BP 162/100
[2025-01-02 11:38] VITALS: BP 137/83
--- NOTE | 2025-01-02 15:35 | NUR ---
Pt. is awake in bed and welcomes my visit. Pt. is unsettled about being hungry due to his NPO status as he awaits an angiogram. Seek to help normalize the pt experience. Pt. displays understanding and aggreement while remaining honoest about his discomfort awaiting his procedure. Consder matters of patricia and belief. Prayed for the Pt. Pt. erbalized gratitude for the spiritual care visit.
[2025-01-02 16:40] VITALS: BP 164/93
--- NOTE | 2025-01-02 17:46 | NUR ---
SHIFT SUMMARY PT A/OX 4 AND COOPERATIVE CARE. PT ABLE TO EXPRESS NEEDS AND CALLS APPROPIATE. PT SLIGHTLY HYPERTENSIVE AT TIMES. OTHER VSS THROUGHOUT SHIFT WITH O2 SATS IN THE 90'S ON RA. NO REPOR TOF CHEST PAIN/PRESSURE THIS THROUGHOUT SHIFT. NO RPEORT OF SOB/DYSPNEA THROUGHOUT SHIFT. PT NPO FOR MOST OF SHIFT IN PREPARATION OF ANGIO, PLAN IS TO HAVE ANGIO IN THE MORNING. PT SEEN BY IRISH MOSS BLEACHER AND TELE HEALTH VIA SKYPE WITH RN MDS. HEP GTT RUNNING PER EMAR.
[2025-01-02] MEDS ORDERED: Calcium Acetate 667 MG Gel Cap PO SCH (18:00)
[2025-01-02 19:33] VITALS: BP 148/87
[2025-01-02 23:45] LABS: Anion Gap 14.0 mmol/L (3-11); Blood Urea Nitrogen 107.0 mg/dL (8-24); CO2, Blood 18.0 mmol/L (21-32); Calcium, Blood 6.9 mg/dL (8.5-10.1); Chloride, Blood 104.0 mmol/L (98-108); Creatinine, Blood 9.7 mg/dL (0.60-1.20); Glucose, Blood 418.0 mg/dL (70-99); Potassium, Blood 5.7 mmol/L (3.5-5.5); Sodium, Blood 130.0 mmol/L (136-145)
[2025-01-03] VITALS (14 sets, daily range): BP systolic 141–168; BP diastolic 78–92
[2025-01-03] MEDS ORDERED: Insulin Human Lispro 100 Units/ML 3ML Syringe SC SCH ×2 (00:05→00:20)
--- NOTE | 2025-01-03 00:23 | NUR ---
DISCUSSED WITH DR. HUITRON PATIENTS HYPERGLYCEMIA-DR. HUITRON ORDERED STAT LABS-LABS BACK DR. HUITRON REVIEWED, EKG ORDERED-EKG SHOWED NORMAL SINUS RHYTHM. BLOOD GLUCOSE CHECKS CHANGED TO Q6H WHILE PATIENT IS NPO-SLIDING SCALE INSULIN CORRECTION FOR Q6 BLOOD GLUCOSE ALSO ORDERED BY . CONTINUE TO MONITOR PATIENT AND NOTIFY DOCTOR IF PATIENT DEVELOPES SYMPTOMS.
--- NOTE | 2025-01-03 04:55 | NUR ---
SHIFT SUMMARY. NO ACUTE CHANGES NOTED THIS SHIFT. PATIENT IS ALERT AND ORIENTED, CALLS APPROPRIATELY, ABLE TO MAKE HIS NEEDS KNOWN, AND IS COOPERAITIVE WITH CARE. PATIENTS VITAL SIGNS HAVE REMAINED STABLE ALTHOUGH HYPERTENSIVE THIS AM. PATIENT RESTING WELL THIS SHIFT. PATIENT HAS BEEN NPO SINCE MIDNIGHT FOR ANGIO THIS MORNING 01/03/25. PATIENT INDEPENDENT IN ROOM. PUMP CLEARED AND NEED ASSESSED AND ADDRESSED THIS MORNING. PATIENT HAS HEPARIN GTT INFUSING PER ORDERS. BED IS LOCKED IN THE LOWEST POSITION WITH CALL LIGHT IN REACH. CARE IS ONGOING.
[2025-01-03 05:51] LABS: Hematocrit 24.0 % (37.0-53.0); Hemoglobin 7.9 g/dL (13.5-17.5); Platelet Count 315 K/mm3 (150-400)
[2025-01-03] MEDS ORDERED: Heparin Sodium 1000 Units/ML 10ML MDV ONE ×2 (08:48→10:12)
[2025-01-03] MEDS ORDERED: Verapamil HCL 2.5 MG/ML 2ML Injection ONE (08:48)
[2025-01-03] MEDS ORDERED: Nitroglycerin 2 MG/20 ML BTL ONE (08:48)
[2025-01-03] MEDS ORDERED: NS 2,000 ML IV ONE (08:48)
[2025-01-03] MEDS ORDERED: NS 250 ML IV ONE (08:48)
[2025-01-03] MEDS ORDERED: Darbepoetin Alfa In Albumn Sol 40 MCG/0.4 ML SC ONE (09:00)
[2025-01-03] MEDS ORDERED: Midazolam HCl 1MG / ML 2ML Vial ONE ×2 (09:24→09:47)
[2025-01-03] MEDS ORDERED: FentaNYL Citrate 50 MCG/ML 2 ML Injection ONE ×2 (09:24→10:17)
--- NOTE | 2025-01-03 09:51 | NUR ---
PT DOWN FOR ANGIO AT ROUGHLY 0900. HEP GGT STOPPED AT THAT TIME, PHARMACY NOTIFIED.
[2025-01-03] MEDS ORDERED: HydrALAZINE HCl 20 MG / ML 1ML Vial ONE (10:30)
[2025-01-03 12:18] LABS: BASOPHILS ABSOLUTE AUTO 0.04 K/mm3 (0.00-0.23); BASOPHILS PERCENT AUTO 1 % (0-2); EOSINOPHILS ABSOLUTE AUTO 0.33 K/mm3 (0.00-0.68); EOSINOPHILS PERCENT AUTO 4 % (0-6); Hematocrit 22.8 % (37.0-53.0); Hemoglobin 7.6 g/dL (13.5-17.5); IMMATURE GRAN ABSOLUTE AUTO 0.06 K/mm3 (0.00-0.10); IMMATURE GRAN PERCENT AUTO 1 % (0-1); LYMPHOCYTES ABSOLUTE AUTO 1.05 K/mm3 (0.84-5.20); LYMPHOCYTES PERCENT AUTO 13 % (21-46); MONOCYTES ABSOLUTE AUTO 0.88 K/mm3 (0.16-1.47); MONOCYTES PERCENT AUTO 11 % (4-13); Mean Corpuscular HGB Conc 33.3 g/dL (31.5-36.5); Mean Corpuscular Volume 85 fL (80-100); NEUTROPHILS ABSOLUTE AUTO 5.81 K/mm3 (1.96-9.15); NEUTROPHILS PERCENT AUTO 71 % (41-73); NRBC ABSOLUTE 0.00 K/mm3 (0.00-0.02); NRBC Auto 0.0 /100 WBC (0.0-0.2); Platelet Count 288 K/mm3 (150-400); RDW Coefficient Variation 14.2 % (11.7-14.2); RDW Standard Deviation 43.8 fL (35.1-46.3)
[2025-01-03 13:18] LABS: Albumin, Blood 1.8 g/dL (3.4-5.0); Anion Gap 16 mmol/L (3-11); Blood Urea Nitrogen 117 mg/dL (8-24); CO2, Blood 15 mmol/L (21-32); Calcium, Blood 7.3 mg/dL (8.5-10.1); Chloride, Blood 107 mmol/L (98-108); Creatinine, Blood 10.30 mg/dL (0.60-1.20); Glucose, Blood 157 mg/dL (70-99); Phosphorus, Blood 8.3 mg/dL (2.5-4.9); Potassium, Blood 4.5 mmol/L (3.5-5.5); Sodium, Blood 133 mmol/L (136-145)
--- NOTE | 2025-01-03 16:32 | NUR ---
REPORT CALLED TO FARRUKH NINO [facility], AT 1600.
--- NOTE | 2025-01-03 17:05 | NUR ---
TRANSPORT ARRIVED AT 1640. REPORT GIVEN TO TRANSPORT TEAM. PT ABLE TO TRANSFER TO BATHROOM AND GURNEY ON HIS OWN, TOLERATED WELL. PT PERSONAL BELONGINGS IN BAGS AND WITH PT AT TIME OF DEPARTURE. PT ON RA AND DENIED PAIN. TRANSFER PACKET GIVEN TO TRANSPORT TEAM AT TIME OF REPORT.
[2025-01-05 14:42] LABS: HEPATITIS B SURFACE ANTIBODY 13.89 IU/L
[2025-01-05 19:33] LABS: HEPATITIS A ANTIBODY, IGM Negative (Negative); HEPATITIS C AB CIA INTERP Negative (Negative); HEPATITIS C ANTIBODY CIA INDEX 0.09 IV
== END 2025-01-03 17:03 | disposition short-term general hospital (02) | DRG 280 ==
LOC: ER 18:03 → PCU 22:14 → ICUE 22:14 → PCU 01-01 17:31
PROVIDERS: Emergency Medicine; Family Medicine; Internal Medicine; Internal Medicine Nephrology; Nurse Practitioner Acute Care; Student in an Organized Health Care Education/Training Program; ADMIT Student in an Organized Health Care Education/Training Program
PROC: 30233N1 Transfusion of Nonautologous Red Blood Cells into Peripheral Vein, Percutaneous Approach (ICD-10-PCS; principal; 2024-12-31)
PROC: B2111ZZ Fluoroscopy of Multiple Coronary Arteries using Low Osmolar Contrast (ICD-10-PCS; 2025-01-03)
DX: I21.4 Non-ST elevation (NSTEMI) myocardial infarction (principal); N18.6 End stage renal disease; N17.9 Acute kidney failure, unspecified; I12.0 Hypertensive chronic kidney disease with stage 5 chronic kidney disease or end stage renal disease; E87.20 Acidosis, unspecified; I12.9 Hypertensive chronic kidney disease with stage 1 through stage 4 chronic kidney disease, or unspecified chronic kidney disease; E78.5 Hyperlipidemia, unspecified; Z99.2 Dependence on renal dialysis; F32.A Depression, unspecified; I25.10 Atherosclerotic heart disease of native coronary artery without angina pectoris; I25.2 Old myocardial infarction; E10.22 Type 1 diabetes mellitus with diabetic chronic kidney disease; E10.42 Type 1 diabetes mellitus with diabetic polyneuropathy; F17.210 Nicotine dependence, cigarettes, uncomplicated; D63.1 Anemia in chronic kidney disease; E10.65 Type 1 diabetes mellitus with hyperglycemia; I16.0 Hypertensive urgency; E87.5 Hyperkalemia; D50.9 Iron deficiency anemia, unspecified; E83.39 Other disorders of phosphorus metabolism; E83.51 Hypocalcemia; R94.5 Abnormal results of liver function studies; Z95.5 Presence of coronary angioplasty implant and graft; Z86.74 Personal history of sudden cardiac arrest; Z88.8 Allergy status to other drugs, medicaments and biological substances; Z79.82 Long term (current) use of aspirin; Z79.02 Long term (current) use of antithrombotics/antiplatelets; Z79.899 Other long term (current) drug therapy; Z79.4 Long term (current) use of insulin; Z90.49 Acquired absence of other specified parts of digestive tract
CPT/HCPCS: 36415; 71045; 76937; 80047; 80048; 80053; 80069; 80074; 82010; 82330; 82728; 82803; 82947; 83540; 83550; 83605; 83735; 84484; 85007; 85014; 85018; 85025; 85027; 85049; 85520; 85610; 85730; 86480; 86850; 86900; 86901; 86923; 93005; 93010; 93308; 93458; 93571; 96374; 96375; 99152; 99153; 99285-25; A9270; C1760; C1769; C1887; C1894; J0360; J0612; J1644; J1815; J2250; J2270; J2405; J2470; J2765; J3010; J7030; J7050; P9016; Q9967

== ENCOUNTER 2025-03-15 07:06 | Observation (INO) | payer OTHER ==
[~2025-03-15] VITALS: Ht 172.7 cm; Wt 79.4 kg
[2025-03-15] VITALS (12 sets, daily range): BP systolic 147–185; BP diastolic 79–113
[2025-03-15] MEDS ORDERED: Ondansetron HCl 2 MG / ML 2ML Vial IV PRN (07:30)
[2025-03-15 07:39] LABS: BASOPHILS ABSOLUTE AUTO 0.05 K/mm3 (0.00-0.23); BASOPHILS PERCENT AUTO 0 % (0-2); EOSINOPHILS ABSOLUTE AUTO 0.36 K/mm3 (0.00-0.68); EOSINOPHILS PERCENT AUTO 2 % (0-6); Hematocrit 33.0 % (37.0-53.0); Hemoglobin 10.9 g/dL (13.5-17.5); IMMATURE GRAN ABSOLUTE AUTO 0.13 K/mm3 (0.00-0.10); IMMATURE GRAN PERCENT AUTO 1 % (0-1); LYMPHOCYTES ABSOLUTE AUTO 1.55 K/mm3 (0.84-5.20); LYMPHOCYTES PERCENT AUTO 10 % (21-46); MONOCYTES ABSOLUTE AUTO 1.27 K/mm3 (0.16-1.47); MONOCYTES PERCENT AUTO 9 % (4-13); Mean Corpuscular HGB Conc 33.0 g/dL (31.5-36.5); Mean Corpuscular Volume 89 fL (80-100); NEUTROPHILS ABSOLUTE AUTO 11.59 K/mm3 (1.96-9.15); NEUTROPHILS PERCENT AUTO 78 % (41-73); NRBC ABSOLUTE 0.00 K/mm3 (0.00-0.02); NRBC Auto 0.0 /100 WBC (0.0-0.2); Platelet Count 352 K/mm3 (150-400); RDW Coefficient Variation 14.9 % (11.7-14.2); RDW Standard Deviation 48.8 fL (35.1-46.3)
[2025-03-15 07:51] LABS: Alanine Aminotransfer (ALT/SGP 42.0 U/L (12-78); Albumin, Blood 2.6 g/dL (3.4-5.0); Albumin/Globulin Ratio 0.6 (0.8-1.8); Anion Gap 14.0 mmol/L (3-11); Aspartate Aminotrans (AST/SGOT 26.0 U/L (12-37); Bilirubin, Total 0.4 mg/dL (0.1-1.0); Blood Urea Nitrogen 71.0 mg/dL (8-24); CO2, Blood 24.0 mmol/L (21-32); Calcium, Blood 7.1 mg/dL (8.5-10.1); Chloride, Blood 98.0 mmol/L (98-108); Creatinine, Blood 6.9 mg/dL (0.60-1.20); Globulin, Blood 4.0 g/dL (2.2-4.0); Glucose, Blood 166.0 mg/dL (70-99); Potassium, Blood 5.5 mmol/L (3.5-5.5); Sodium, Blood 130.0 mmol/L (136-145); Total Protein, Blood 6.6 g/dL (6.4-8.2)
[2025-03-15] MEDS ORDERED: Metoclopramide HCl 5MG / ML 2ML Vial IV ONE (08:50)
[2025-03-15 10:29] LABS: Influenza A, PCR NEGATIVE (NEGATIVE); Influenza B, PCR NEGATIVE (NEGATIVE); Resp Syncytial Virus, PCR NEGATIVE (NEGATIVE); SARS-Cov-2 (COVID-19) PCR, MMC NEGATIVE (NEGATIVE)
[2025-03-15 10:35] LABS: Source, Urine Clean Catch
[2025-03-15 10:40] LABS: Bilirubin, Urine Neg (Neg); Glucose Qualitative, Urine 3+ (Neg); Ketones, Urine Neg (Neg); Leukocyte Esterase, Urine Neg (Neg); Protein, Urine 4+ (Neg); Specific Gravity, Urine 1.015 (1.003-1.022); Urobilinogen, Urine NORM (Normal)
[2025-03-15 10:49] LABS: Color, Urine Yellow (P-Yellow)
[2025-03-15] MEDS ORDERED: NS 250 ML IV SCH (10:50)
[2025-03-15 10:52] LABS: Red Blood Cells, Urine 0-2 /hpf (0-2); White Blood Cells, Urine 0-2 /hpf (0-5)
[2025-03-15] MEDS ORDERED: FLU VACC TS2025-26(6MOS UP)/PF 45 MCG/0.5 ML SYRINGE IM SCH (11:45)
[2025-03-15] MEDS ORDERED: Heparin Sodium,Porcine 5,000 UNIT/0.5 ML SDV SC SCH (14:00)
--- NOTE | 2025-03-15 15:17 | NUR ---
ADMISSION NOTE: PATIENT ARRIVED TO THE UNIT VIA GURNEY FROM DIALYSIS. PATIENT WAS ABLE TO SELF TRANSFER ONTO THE BED. PATIENT C/O SEVERE HEADACHE AND BLOOD PRESSURE IS HIGH. CALL MADE TO DR. CORTEZ AND NOTIFIED. HE IS PLACING ORDERS. PATIENT SETTLED IN ROOM.
[2025-03-15] MEDS ORDERED: FentaNYL Citrate 50 MCG/ML 2 ML Injection IV PRN (15:25)
[2025-03-15] MEDS ORDERED: Insulin Human Lispro 100 Units/ML 3ML Syringe SC SCH (16:30)
[2025-03-15] MEDS ORDERED: Metoprolol Tart25 MG PO (17:31)
[2025-03-15] MEDS ORDERED: CATAPRES0.2 M1 PO (18:49)
--- NOTE | 2025-03-15 18:50 | NUR ---
DISCHARGE NOTE: PATIENT LEFT UNIT AT UNKNOWN TIME WITHOUT GOING OVER DISCHARGE. HIS IV AND TELE WERE REMOVED PRIOR TO HIM LEAVING BY THERAPIST RADIATION AND THERAPIST RADIATION VOICED THAT HE NOTIFIED PATIENT TO WAIT UNTIL HE SIGNED A PAPER. APN NOTIFIED.
[2025-03-15] MEDS ORDERED: Insulin Glargine 100 Unit/ML 3 ML SYR SC SCH (21:00)
== END 2025-03-15 18:55 | disposition home or self-care (01) ==
LOC: ER 07:06 → MEDS 07:07
PROVIDERS: Physician Assistant; Student in an Organized Health Care Education/Training Program; ADMIT Student in an Organized Health Care Education/Training Program
DX: I12.0 Hypertensive chronic kidney disease with stage 5 chronic kidney disease or end stage renal disease (principal); E10.22 Type 1 diabetes mellitus with diabetic chronic kidney disease; N18.6 End stage renal disease; R51.9 Headache, unspecified; I25.10 Atherosclerotic heart disease of native coronary artery without angina pectoris; I25.2 Old myocardial infarction; E78.5 Hyperlipidemia, unspecified; Z99.2 Dependence on renal dialysis; Z95.5 Presence of coronary angioplasty implant and graft; Z87.891 Personal history of nicotine dependence; Z79.82 Long term (current) use of aspirin; Z79.02 Long term (current) use of antithrombotics/antiplatelets; Z79.899 Other long term (current) drug therapy; Z88.8 Allergy status to other drugs, medicaments and biological substances; Z59.89 Other problems related to housing and economic circumstances; Z90.49 Acquired absence of other specified parts of digestive tract
CPT/HCPCS: 74177; 80053; 81001; 82947; 83690; 85025; 87637; 93005; 93010; 96361; 96372; 96374; 96375; 99285-25; A9270; G0257; G0378; J1644; J1815; J2405; J2765; J3010; J7030; Q9967

== ENCOUNTER 2025-03-18 10:19 | Emergency (ER) | payer OTHER ==
[~2025-03-18] VITALS: Ht 172.7 cm; Wt 81.0 kg
[~2025-03-18 10:19] MED LIST changes: +CATAPRES0.2 M1 PO; +Metoprolol Tart25 MG PO
[2025-03-18 10:51] LABS: BASOPHILS ABSOLUTE AUTO 0.04 K/mm3 (0.00-0.23); BASOPHILS PERCENT AUTO 0 % (0-2); EOSINOPHILS ABSOLUTE AUTO 0.35 K/mm3 (0.00-0.68); EOSINOPHILS PERCENT AUTO 4 % (0-6); Hematocrit 32.3 % (37.0-53.0); Hemoglobin 10.6 g/dL (13.5-17.5); IMMATURE GRAN ABSOLUTE AUTO 0.10 K/mm3 (0.00-0.10); IMMATURE GRAN PERCENT AUTO 1 % (0-1); LYMPHOCYTES ABSOLUTE AUTO 1.29 K/mm3 (0.84-5.20); LYMPHOCYTES PERCENT AUTO 14 % (21-46); MONOCYTES ABSOLUTE AUTO 1.24 K/mm3 (0.16-1.47); MONOCYTES PERCENT AUTO 13 % (4-13); Mean Corpuscular HGB Conc 32.8 g/dL (31.5-36.5); Mean Corpuscular Volume 90 fL (80-100); NEUTROPHILS ABSOLUTE AUTO 6.39 K/mm3 (1.96-9.15); NEUTROPHILS PERCENT AUTO 68 % (41-73); NRBC ABSOLUTE 0.00 K/mm3 (0.00-0.02); NRBC Auto 0.0 /100 WBC (0.0-0.2); Platelet Count 285 K/mm3 (150-400); RDW Coefficient Variation 14.7 % (11.7-14.2); RDW Standard Deviation 49.1 fL (35.1-46.3)
[2025-03-18 11:14] LABS: Alanine Aminotransfer (ALT/SGP 32.0 U/L (12-78); Albumin, Blood 2.5 g/dL (3.4-5.0); Albumin/Globulin Ratio 0.6 (0.8-1.8); Anion Gap 9.0 mmol/L (3-11); Aspartate Aminotrans (AST/SGOT 24.0 U/L (12-37); Bilirubin, Total 0.4 mg/dL (0.1-1.0); Blood Urea Nitrogen 51.0 mg/dL (8-24); CO2, Blood 25.0 mmol/L (21-32); Calcium, Blood 7.2 mg/dL (8.5-10.1); Chloride, Blood 101.0 mmol/L (98-108); Creatinine, Blood 6.51 mg/dL (0.60-1.20); Globulin, Blood 4.2 g/dL (2.2-4.0); Glucose, Blood 168.0 mg/dL (70-99); Potassium, Blood 4.4 mmol/L (3.5-5.5); Sodium, Blood 131.0 mmol/L (136-145); Total Protein, Blood 6.7 g/dL (6.4-8.2)
[2025-03-18 14:03] VITALS: BP 171/87
== END 2025-03-18 14:13 | disposition home or self-care (01) ==
LOC: ER 10:19
PROVIDERS: Physician Assistant
DX: G45.9 Transient cerebral ischemic attack, unspecified (principal); E11.9 Type 2 diabetes mellitus without complications; F17.210 Nicotine dependence, cigarettes, uncomplicated
CPT/HCPCS: 70450; 80053; 83690; 85025; 93005; 93010; 99285-25

== ENCOUNTER 2025-03-22 09:58 | Emergency (ER) | payer OTHER ==
[~2025-03-22] VITALS: Ht 172.7 cm; Wt 68.0 kg
[2025-03-22] MEDS ORDERED: Ondansetron 4 MG SoluTab SL ONE (10:30)
[2025-03-22 10:44] LABS: BASOPHILS ABSOLUTE AUTO 0.06 K/mm3 (0.00-0.23); BASOPHILS PERCENT AUTO 1 % (0-2); EOSINOPHILS ABSOLUTE AUTO 0.26 K/mm3 (0.00-0.68); EOSINOPHILS PERCENT AUTO 3 % (0-6); Hematocrit 37.3 % (37.0-53.0); Hemoglobin 11.8 g/dL (13.5-17.5); IMMATURE GRAN ABSOLUTE AUTO 0.13 K/mm3 (0.00-0.10); IMMATURE GRAN PERCENT AUTO 2 % (0-1); LYMPHOCYTES ABSOLUTE AUTO 1.17 K/mm3 (0.84-5.20); LYMPHOCYTES PERCENT AUTO 14 % (21-46); MONOCYTES ABSOLUTE AUTO 0.73 K/mm3 (0.16-1.47); MONOCYTES PERCENT AUTO 9 % (4-13); Mean Corpuscular HGB Conc 31.6 g/dL (31.5-36.5); Mean Corpuscular Volume 92 fL (80-100); NEUTROPHILS ABSOLUTE AUTO 5.96 K/mm3 (1.96-9.15); NEUTROPHILS PERCENT AUTO 72 % (41-73); NRBC ABSOLUTE 0.00 K/mm3 (0.00-0.02); NRBC Auto 0.0 /100 WBC (0.0-0.2); Platelet Count 285 K/mm3 (150-400); RDW Coefficient Variation 14.3 % (11.7-14.2); RDW Standard Deviation 48.4 fL (35.1-46.3)
[2025-03-22] MEDS ORDERED: Ipratropium/Albuterol SulF 2.5-0.5MG/3 ML Amp INH ONE (11:10)
[2025-03-22 11:16] LABS: Alanine Aminotransfer (ALT/SGP 34.0 U/L (12-78); Albumin, Blood 2.7 g/dL (3.4-5.0); Albumin/Globulin Ratio 0.6 (0.8-1.8); Anion Gap 9.0 mmol/L (3-11); Aspartate Aminotrans (AST/SGOT 27.0 U/L (12-37); Bilirubin, Total 0.3 mg/dL (0.1-1.0); Blood Urea Nitrogen 44.0 mg/dL (8-24); CO2, Blood 27.0 mmol/L (21-32); Calcium, Blood 7.4 mg/dL (8.5-10.1); Chloride, Blood 100.0 mmol/L (98-108); Creatinine, Blood 5.03 mg/dL (0.60-1.20); Globulin, Blood 4.6 g/dL (2.2-4.0); Glucose, Blood 139.0 mg/dL (70-99); Potassium, Blood 3.7 mmol/L (3.5-5.5); Sodium, Blood 132.0 mmol/L (136-145); Total Protein, Blood 7.3 g/dL (6.4-8.2)
[2025-03-22 12:47] LABS: Magnesium, Blood 2.1 mg/dL (1.6-2.4); Phosphorus, Blood 3.9 mg/dL (2.5-4.9)
[2025-03-22] MEDS ORDERED: NS 1,000 ML IV SCH (12:50)
[2025-03-22] MEDS ORDERED: ALBU90OI INH (14:19)
[2025-03-22 14:53] VITALS: BP 165/95
== END 2025-03-22 14:55 | disposition home or self-care (01) ==
LOC: ER 09:58
PROVIDERS: Student in an Organized Health Care Education/Training Program
DX: R55 Syncope and collapse (principal); E10.22 Type 1 diabetes mellitus with diabetic chronic kidney disease; I12.0 Hypertensive chronic kidney disease with stage 5 chronic kidney disease or end stage renal disease; N18.6 End stage renal disease; E10.40 Type 1 diabetes mellitus with diabetic neuropathy, unspecified; E78.5 Hyperlipidemia, unspecified; Z79.4 Long term (current) use of insulin; Z79.02 Long term (current) use of antithrombotics/antiplatelets; Z79.82 Long term (current) use of aspirin; Z79.899 Other long term (current) drug therapy; Z88.8 Allergy status to other drugs, medicaments and biological substances
CPT/HCPCS: 71046; 80053; 82947; 83605; 83735; 84100; 85025; 93005; 93010; 99284-25; A9270; J7030

== ENCOUNTER 2025-03-27 08:18 | Emergency (ER) | payer OTHER ==
[~2025-03-27] VITALS: Ht 172.7 cm; Wt 86.2 kg
[2025-03-27 08:40] VITALS: BP 211/115
[2025-03-27 09:10] LABS: BASOPHILS ABSOLUTE AUTO 0.06 K/mm3 (0.00-0.23); BASOPHILS PERCENT AUTO 1 % (0-2); EOSINOPHILS ABSOLUTE AUTO 0.16 K/mm3 (0.00-0.68); EOSINOPHILS PERCENT AUTO 1 % (0-6); Hematocrit 38.3 % (37.0-53.0); Hemoglobin 12.7 g/dL (13.5-17.5); IMMATURE GRAN ABSOLUTE AUTO 0.17 K/mm3 (0.00-0.10); IMMATURE GRAN PERCENT AUTO 1 % (0-1); LYMPHOCYTES ABSOLUTE AUTO 0.78 K/mm3 (0.84-5.20); LYMPHOCYTES PERCENT AUTO 6 % (21-46); MONOCYTES ABSOLUTE AUTO 1.03 K/mm3 (0.16-1.47); MONOCYTES PERCENT AUTO 8 % (4-13); Mean Corpuscular HGB Conc 33.2 g/dL (31.5-36.5); Mean Corpuscular Volume 88 fL (80-100); NEUTROPHILS ABSOLUTE AUTO 10.97 K/mm3 (1.96-9.15); NEUTROPHILS PERCENT AUTO 83 % (41-73); NRBC ABSOLUTE 0.00 K/mm3 (0.00-0.02); NRBC Auto 0.0 /100 WBC (0.0-0.2); Platelet Count 360 K/mm3 (150-400); RDW Coefficient Variation 14.8 % (11.7-14.2); RDW Standard Deviation 47.7 fL (35.1-46.3)
[2025-03-27 09:19] LABS: Alanine Aminotransfer (ALT/SGP 41.0 U/L (12-78); Albumin, Blood 2.7 g/dL (3.4-5.0); Albumin/Globulin Ratio 0.6 (0.8-1.8); Anion Gap 11.0 mmol/L (3-11); Aspartate Aminotrans (AST/SGOT 47.0 U/L (12-37); Bilirubin, Total 0.5 mg/dL (0.1-1.0); Blood Urea Nitrogen 61.0 mg/dL (8-24); CO2, Blood 27.0 mmol/L (21-32); Calcium, Blood 7.7 mg/dL (8.5-10.1); Chloride, Blood 103.0 mmol/L (98-108); Creatinine, Blood 7.98 mg/dL (0.60-1.20); Globulin, Blood 4.6 g/dL (2.2-4.0); Glucose, Blood 107.0 mg/dL (70-99); Potassium, Blood 5.6 mmol/L (3.5-5.5); Sodium, Blood 135.0 mmol/L (136-145); Total Protein, Blood 7.3 g/dL (6.4-8.2)
== END 2025-03-27 10:52 | disposition home or self-care (01) ==
LOC: ER 08:18
PROVIDERS: Emergency Medicine
DX: E10.649 Type 1 diabetes mellitus with hypoglycemia without coma (principal); E87.6 Hypokalemia; E10.22 Type 1 diabetes mellitus with diabetic chronic kidney disease; N18.30 Chronic kidney disease, stage 3 unspecified; E78.5 Hyperlipidemia, unspecified; I12.0 Hypertensive chronic kidney disease with stage 5 chronic kidney disease or end stage renal disease; E10.40 Type 1 diabetes mellitus with diabetic neuropathy, unspecified; F17.210 Nicotine dependence, cigarettes, uncomplicated; Z79.4 Long term (current) use of insulin; Z79.899 Other long term (current) drug therapy; Z79.02 Long term (current) use of antithrombotics/antiplatelets; Z79.82 Long term (current) use of aspirin; Z88.8 Allergy status to other drugs, medicaments and biological substances
CPT/HCPCS: 71045; 80053; 82947; 85025; 99285-25

== ENCOUNTER 2025-04-26 05:15 | Emergency (ER) | payer OTHER ==
[~2025-04-26] VITALS: Ht 172.7 cm; Wt 81.7 kg
[2025-04-26 05:38] LABS: BASOPHILS ABSOLUTE AUTO 0.03 K/mm3 (0.00-0.23); BASOPHILS PERCENT AUTO 0 % (0-2); EOSINOPHILS ABSOLUTE AUTO 0.32 K/mm3 (0.00-0.68); EOSINOPHILS PERCENT AUTO 4 % (0-6); Hematocrit 34.9 % (37.0-53.0); Hemoglobin 11.2 g/dL (13.5-17.5); IMMATURE GRAN ABSOLUTE AUTO 0.07 K/mm3 (0.00-0.10); IMMATURE GRAN PERCENT AUTO 1 % (0-1); LYMPHOCYTES ABSOLUTE AUTO 1.26 K/mm3 (0.84-5.20); LYMPHOCYTES PERCENT AUTO 14 % (21-46); MONOCYTES ABSOLUTE AUTO 1.07 K/mm3 (0.16-1.47); MONOCYTES PERCENT AUTO 12 % (4-13); Mean Corpuscular HGB Conc 32.1 g/dL (31.5-36.5); Mean Corpuscular Volume 88 fL (80-100); NEUTROPHILS ABSOLUTE AUTO 6.39 K/mm3 (1.96-9.15); NEUTROPHILS PERCENT AUTO 70 % (41-73); NRBC ABSOLUTE 0.00 K/mm3 (0.00-0.02); NRBC Auto 0.0 /100 WBC (0.0-0.2); Platelet Count 244 K/mm3 (150-400); RDW Coefficient Variation 15.2 % (11.7-14.2); RDW Standard Deviation 48.7 fL (35.1-46.3)
[2025-04-26 06:20] LABS: Magnesium, Blood 2.2 mg/dL (1.6-2.4)
[2025-04-26] MEDS ORDERED: Ondansetron 4 MG SoluTab SL ONE (06:20)
[2025-04-26 06:34] LABS: Alanine Aminotransfer (ALT/SGP 42.0 U/L (12-78); Albumin, Blood 2.6 g/dL (3.4-5.0); Albumin/Globulin Ratio 0.7 (0.8-1.8); Anion Gap 12.0 mmol/L (3-11); Aspartate Aminotrans (AST/SGOT 26.0 U/L (12-37); Bilirubin, Total 0.6 mg/dL (0.1-1.0); Blood Urea Nitrogen 48.0 mg/dL (8-24); CO2, Blood 25.0 mmol/L (21-32); Calcium, Blood 7.6 mg/dL (8.5-10.1); Chloride, Blood 100.0 mmol/L (98-108); Globulin, Blood 3.6 g/dL (2.2-4.0); Glucose, Blood 413.0 mg/dL (70-99); Sodium, Blood 131.0 mmol/L (136-145); Total Protein, Blood 6.2 g/dL (6.4-8.2)
[2025-04-26 06:36] LABS: Creatinine, Blood 8.62 mg/dL (0.60-1.20); Potassium, Blood 6.1 mmol/L (3.5-5.5)
[2025-04-26 07:28] VITALS: BP 109/96
== END 2025-04-26 07:56 | disposition home or self-care (01) ==
LOC: ER 05:15
PROVIDERS: Student in an Organized Health Care Education/Training Program
DX: I12.0 Hypertensive chronic kidney disease with stage 5 chronic kidney disease or end stage renal disease (principal); E10.22 Type 1 diabetes mellitus with diabetic chronic kidney disease; N18.6 End stage renal disease; R06.02 Shortness of breath; F17.210 Nicotine dependence, cigarettes, uncomplicated; Z79.899 Other long term (current) drug therapy; Z79.4 Long term (current) use of insulin; Z88.8 Allergy status to other drugs, medicaments and biological substances; Z99.2 Dependence on renal dialysis; E78.5 Hyperlipidemia, unspecified
CPT/HCPCS: 71045; 80053; 83735; 85025; 93005; 93010; 99285-25; A9270

== ENCOUNTER 2025-05-01 21:14 | Emergency (ER) | payer OTHER ==
[~2025-05-01] VITALS: Ht 172.7 cm; Wt 83.1 kg
[2025-05-01 22:20] LABS: BASOPHILS ABSOLUTE AUTO 0.04 K/mm3 (0.00-0.23); BASOPHILS PERCENT AUTO 1 % (0-2); EOSINOPHILS ABSOLUTE AUTO 0.22 K/mm3 (0.00-0.68); EOSINOPHILS PERCENT AUTO 3 % (0-6); Hematocrit 39.9 % (37.0-53.0); Hemoglobin 13.2 g/dL (13.5-17.5); IMMATURE GRAN ABSOLUTE AUTO 0.07 K/mm3 (0.00-0.10); IMMATURE GRAN PERCENT AUTO 1 % (0-1); LYMPHOCYTES ABSOLUTE AUTO 0.78 K/mm3 (0.84-5.20); LYMPHOCYTES PERCENT AUTO 9 % (21-46); MONOCYTES ABSOLUTE AUTO 0.83 K/mm3 (0.16-1.47); MONOCYTES PERCENT AUTO 10 % (4-13); Mean Corpuscular HGB Conc 33.1 g/dL (31.5-36.5); Mean Corpuscular Volume 85 fL (80-100); NEUTROPHILS ABSOLUTE AUTO 6.44 K/mm3 (1.96-9.15); NEUTROPHILS PERCENT AUTO 77 % (41-73); NRBC ABSOLUTE 0.00 K/mm3 (0.00-0.02); NRBC Auto 0.0 /100 WBC (0.0-0.2); Platelet Count 206 K/mm3 (150-400); RDW Coefficient Variation 14.5 % (11.7-14.2); RDW Standard Deviation 45.2 fL (35.1-46.3)
[2025-05-01 22:37] LABS: Alanine Aminotransfer (ALT/SGP 36.0 U/L (12-78); Albumin, Blood 2.9 g/dL (3.4-5.0); Albumin/Globulin Ratio 0.8 (0.8-1.8); Anion Gap 11.0 mmol/L (3-11); Aspartate Aminotrans (AST/SGOT 32.0 U/L (12-37); Bilirubin, Total 1.1 mg/dL (0.1-1.0); Blood Urea Nitrogen 37.0 mg/dL (8-24); CO2, Blood 29.0 mmol/L (21-32); Calcium, Blood 7.8 mg/dL (8.5-10.1); Chloride, Blood 98.0 mmol/L (98-108); Creatinine, Blood 7.12 mg/dL (0.60-1.20); Globulin, Blood 3.7 g/dL (2.2-4.0); Glucose, Blood 100.0 mg/dL (70-99); Potassium, Blood 4.9 mmol/L (3.5-5.5); Sodium, Blood 133.0 mmol/L (136-145); Total Protein, Blood 6.6 g/dL (6.4-8.2)
[2025-05-01] MEDS ORDERED: DiphenhydrAMINE HCl 50 MG/ML 1ML Vial IV ONE (23:20)
[2025-05-02 01:25] VITALS: BP 188/97
== END 2025-05-02 01:28 | disposition home or self-care (01) ==
LOC: ER 21:14
PROVIDERS: Emergency Medicine
DX: E10.649 Type 1 diabetes mellitus with hypoglycemia without coma (principal); I16.0 Hypertensive urgency; R51.9 Headache, unspecified; I12.9 Hypertensive chronic kidney disease with stage 1 through stage 4 chronic kidney disease, or unspecified chronic kidney disease; E10.22 Type 1 diabetes mellitus with diabetic chronic kidney disease; E10.40 Type 1 diabetes mellitus with diabetic neuropathy, unspecified; N18.30 Chronic kidney disease, stage 3 unspecified; I25.10 Atherosclerotic heart disease of native coronary artery without angina pectoris; I25.2 Old myocardial infarction; E78.5 Hyperlipidemia, unspecified; F17.210 Nicotine dependence, cigarettes, uncomplicated; Z86.73 Personal history of transient ischemic attack (TIA), and cerebral infarction without residual deficits; Z95.5 Presence of coronary angioplasty implant and graft; Z88.8 Allergy status to other drugs, medicaments and biological substances; Z91.048 Other nonmedicinal substance allergy status; Z79.02 Long term (current) use of antithrombotics/antiplatelets; Z79.82 Long term (current) use of aspirin; Z79.4 Long term (current) use of insulin; Z79.899 Other long term (current) drug therapy; Z59.89 Other problems related to housing and economic circumstances
CPT/HCPCS: 80053; 82947; 84484; 85025; 93005; 93010; 96374; 99285-25; A9270; J1200

== ENCOUNTER 2025-05-02 07:30 | Inpatient (IN) | payer OTHER ==
[2025-05-02] VITALS (25 sets, daily range): BP systolic 135–174; BP diastolic 68–113
[~2025-05-02] VITALS: Ht 172.7 cm; Wt 82.0 kg
[~2025-05-02 07:30] MED LIST changes: +LOSARTAN POTASS50 M1 PO; +METO100ER PO; -Metoprolol Tart25 MG PO
[2025-05-02] MEDS ORDERED: Tenecteplase 50 MG / Kit IV ONE ×2 (10:10→13:36)
[2025-05-02] MEDS ORDERED: Labetalol HCL 5 MG/ML 4ML Injection (Single Dose) IV ONE (10:10)
[2025-05-02 10:12] LABS: BASOPHILS ABSOLUTE AUTO 0.04 K/mm3 (0.00-0.23); BASOPHILS PERCENT AUTO 1 % (0-2); EOSINOPHILS ABSOLUTE AUTO 0.27 K/mm3 (0.00-0.68); EOSINOPHILS PERCENT AUTO 4 % (0-6); Hematocrit 35.3 % (37.0-53.0); Hemoglobin 11.6 g/dL (13.5-17.5); IMMATURE GRAN ABSOLUTE AUTO 0.04 K/mm3 (0.00-0.10); IMMATURE GRAN PERCENT AUTO 1 % (0-1); LYMPHOCYTES ABSOLUTE AUTO 0.83 K/mm3 (0.84-5.20); LYMPHOCYTES PERCENT AUTO 14 % (21-46); MONOCYTES ABSOLUTE AUTO 0.63 K/mm3 (0.16-1.47); MONOCYTES PERCENT AUTO 10 % (4-13); Mean Corpuscular HGB Conc 32.9 g/dL (31.5-36.5); Mean Corpuscular Volume 86 fL (80-100); NEUTROPHILS ABSOLUTE AUTO 4.28 K/mm3 (1.96-9.15); NEUTROPHILS PERCENT AUTO 70 % (41-73); NRBC ABSOLUTE 0.00 K/mm3 (0.00-0.02); NRBC Auto 0.0 /100 WBC (0.0-0.2); Platelet Count 187 K/mm3 (150-400); RDW Coefficient Variation 14.6 % (11.7-14.2); RDW Standard Deviation 46.4 fL (35.1-46.3)
[2025-05-02] MEDS ORDERED: NiCARdipine HCL 50 MG in NS 250 ML IV SCH ×2 (10:35→10:50)
[2025-05-02 11:24] LABS: Alanine Aminotransfer (ALT/SGP 31.0 U/L (12-78); Albumin, Blood 2.5 g/dL (3.4-5.0); Albumin/Globulin Ratio 0.9 (0.8-1.8); Anion Gap 9.0 mmol/L (3-11); Aspartate Aminotrans (AST/SGOT 26.0 U/L (12-37); Bilirubin, Total 0.8 mg/dL (0.1-1.0); Blood Urea Nitrogen 45.0 mg/dL (8-24); CO2, Blood 29.0 mmol/L (21-32); Calcium, Blood 7.5 mg/dL (8.5-10.1); Chloride, Blood 96.0 mmol/L (98-108); Creatinine, Blood 8.08 mg/dL (0.60-1.20); Globulin, Blood 2.9 g/dL (2.2-4.0); Glucose, Blood 239.0 mg/dL (70-99); Potassium, Blood 4.9 mmol/L (3.5-5.5); Sodium, Blood 129.0 mmol/L (136-145); Total Protein, Blood 5.4 g/dL (6.4-8.2)
[2025-05-02] MEDS ORDERED: FLU VACC TS2025-26(6MOS UP)/PF 45 MCG/0.5 ML SYRINGE IM ONE (11:25)
[2025-05-02] MEDS ORDERED: Insulin Human Lispro 100 Units/ML 3ML Syringe SC SCH (11:30)
[2025-05-02] MEDS ORDERED: Labetalol HCL 5 MG/ML 4ML Injection (Single Dose) IV PRN (11:30)
--- NOTE | 2025-05-02 12:45 | NUR ---
TOA SUMMARY- PATIENT RECEIVED FROM ED TO ICU BED 9,TOA RECEIVED OVER THE PHONE BEFORE TRANSFER @ 1230PM,PATIENT CAME TO ICU AROUND 1245PM,ALERT AND ORIENTED x4,ABLE TO MOVE FROM STRETCER TO BED,GCS 15,PATIENT CHANGED TO HOSPITAL GOWN,ATTACHED TO AUTOMOBILE UPHOLSTERER APPRENTICE,ON ROOM AIR ,O2 SAT ABOVE 95,MAP ABOVE 65,INITIAL SKIN ASSESSMENT COMPLETED WITH COMMUNITY PRODUCT SPECIALIST,INTACT.PATIENT IS ABLE TO SPEAK FULL SENTENCES,MOVE ALL EXTREMITIES AND NO FACIAL DROOP NOTED.PATIENT IS ABLE TO ALL ANSWERS CORRECTLT.BED IN LOWEST POSITION AND CALL CHEEMA ISSA LITTLEJOHN.
--- NOTE | 2025-05-02 14:44 | NUR ---
Pt. is awake in bed when he welcomes my visit. Pt. is pleasant, and remembers this scarifier operator form a previous visit. Facilitated an update and listen with interest and empathy. Pt. dislpays evidence of being alert and engaged. Pt. verbalized a request to have this scarifier operator contact his anabaptist.
[2025-05-02] MEDS ORDERED: Albuterol HFA200 ACT/6.7 GM INH INH PRN (15:25)
--- NOTE | 2025-05-02 17:08 | NUR ---
SHIFT SUMMARY- Informed meka Rutherford about nephro consult entered by MD Willett. was thankful for notifying him.
[2025-05-02] MEDS ORDERED: Insulin Glargine 100 Unit/ML 3 ML SYR SC SCH (21:00)
--- NOTE | 2025-05-02 21:19 | NUR ---
ASSUMED CARE AT 1900 PATIENT IS ALERT AND ORIENTED X4, FOLLOWS ALL COMMANDS, EQUAL STRENGTH IN ALL EXTREMITIES. PUPILS EQUAL AND REACTIVE. SP02 93% ON RA, DENIES SOB. HR SR 67, BP STABLE, DENIES CP/PRESSURE. SBA TO BATHROOM. INDEPENDENT WITH REPOSITIONING. BLOOD GLUCOSE HIGH, MEDICATED WITH LONG ACTING AND WILL RECHECK BY MIDNIGHT, PATIENT ON CLEAR LIQUID DIET. CALL LIGHT IN REACH
[2025-05-03] VITALS (46 sets, daily range): BP systolic 138–1893; BP diastolic 10–104
[2025-05-03] MEDS ORDERED: Ondansetron HCl 2 MG / ML 2ML Vial IV PRN (02:50)
[2025-05-03 03:16] LABS: Hematocrit 34.5 % (37.0-53.0); Hemoglobin 11.5 g/dL (13.5-17.5); Mean Corpuscular HGB Conc 33.3 g/dL (31.5-36.5); Mean Corpuscular Volume 85 fL (80-100); NRBC ABSOLUTE 0.00 K/mm3 (0.00-0.02); NRBC Auto 0.0 /100 WBC (0.0-0.2); Platelet Count 209 K/mm3 (150-400); RDW Coefficient Variation 14.5 % (11.7-14.2); RDW Standard Deviation 45.4 fL (35.1-46.3)
[2025-05-03 03:45] LABS: Magnesium, Blood 2.2 mg/dL (1.6-2.4)
[2025-05-03 04:37] LABS: Albumin, Blood 2.4 g/dL (3.4-5.0); Anion Gap 13 mmol/L (3-11); Blood Urea Nitrogen 56 mg/dL (8-24); CO2, Blood 24 mmol/L (21-32); Calcium, Blood 7.3 mg/dL (8.5-10.1); Chloride, Blood 97 mmol/L (98-108); Creatinine, Blood 9.32 mg/dL (0.60-1.20); Glucose, Blood 268 mg/dL (70-99); Phosphorus, Blood 6.7 mg/dL (2.5-4.9); Potassium, Blood 5.2 mmol/L (3.5-5.5); Sodium, Blood 129 mmol/L (136-145)
--- NOTE | 2025-05-03 05:59 | NUR ---
SHIFT SUMMARY PATIENT REMAINS ALERT AND ORIENTED X4. NO NEURO DEFICITS THIS SHIFT. SOME NAUSEA AND A HEADACHE, MEDICATED PER EMAR, PATIENT NOW SLEEPING. SP02 93% ON RA, DENIES SOB. HR SR 60s, BP HYPERTENSIVE MEDICATED PER EMAR. DENIES CP/PRESSURE. INDEPENDENT WITH REPOSITIONING. NO ACUTE CHANGES THIS SHIFT. CALL LIGHT IN REACH
--- NOTE | 2025-05-03 07:29 | NUR ---
ASSUMED CARE NOTE: ASSUMED CARE OF PT AT 0700, PT ALERT AND ORIENTED X 4, ABLE TO FOLLOW COMMANDS AND COMMUNICATE NEEDS. PT STRENGTH EQUAL IN ALL EXTREMITIES. PT ON RA WITH SPO2 ABOVE 92% NO RESP DISTRESS NOTED. SBP ABOVE 190, PRN LABETALOL GIVEN PER AUG, BP HOME MEDS TO BE RESTARTED TODAY. PT DENIES ANY CHEST PAIN. PT WANTING TO ADVANCE DIET, CURRENTLY ON CLEAR LIQUID DIET, TOLERATING WELL. PT USING URINAL AT BEDSIDE. ABLE TO REPOSITION SELF IN BED. PLAN OF CARE ONGOING.
[2025-05-03] MEDS ORDERED: Isosorbide Mononitrate 30 MG TABCR PO SCH (09:00)
--- NOTE | 2025-05-03 17:15 | NUR ---
Pt. is awake in bed and welcomes my visit. Pt. is pleasant.Faciltated a lengthy life review and considered matters of patricia and family. Pt. verbalizes how much his mu-ism family means to him and how he finds comfort and hope in his patricia. Listen with empathy and interest. Pt. displays evidence of being fully engaged and aware. Prayed with the Pt. Pt. verbalized gratitude for the spiritual care visit.
--- NOTE | 2025-05-03 17:15 | NUR ---
SHIFT SUMMARY: PT IS ALERT AND ORIENTED X 4, ABLE TO FOLLOW COMMANDS AND COMMUNICATE NEEDS. 24HR RECHECK NIHSS SCORE 0. PT C/O HEADACHE DURING DIALYSIS 03/06, STATES " I ALWAYS GET HEADACHES DURING DIALYSIS" ACETAMINOPHEN GIVEN PER AUG WITH GOOD EFFECT. PT HYPERTENSIVE T/O SHIFT, BP MEDICATIONS ADDED PER . PT DENIES CP, REMAINS IN NSR WITH HR IN THE 70'S. PT PLACED ON 2L OF OXYGEN TO MAINTAIN SPO2 ABOVE 92% PT DENIES SOB. PT UP TO BEDSIDE TOILET WITH SBA. DIET ADVANCED TO CONS CARB DIET, NO S/S ASPIRATION NOTED. PLAN OF CARE ONGOING
--- NOTE | 2025-05-03 19:56 | NUR ---
ASSUMPTION OF CARE: ASSUMED CARE AT START OF SHIFT (1899). REPORT RECEIVED FROM DAY SHIFT RN. PT IS DOING WELL AND RESTING IN BED. PT IS ALERT AND FOLLOWING COMMANDS. PT DENIES ANY PAIN, CP, OR SOB AT THIS TIME. LUNG SOUNDS ARE CLEAR AND EQUAL BILATERALLY, ON RA WITH SPO2 >95%. SINUS RYTHM WITH SBP: 140-160'S MAP >65 HR: 60-70'S. IV: PERIPHERAL IN RAC. PT IS ABLE TO AMBULATE VIA 1-PERSON ASSIST TO TOILET. LINES AND CORDS PLACED OUT OF REACH. CALL LIGHT PLACED WITHIN REACH.
[2025-05-03] MEDS ORDERED: Insulin Glargine 100 Unit/ML 3 ML SYR SC SCH (21:00)
[2025-05-04] VITALS (23 sets, daily range): BP systolic 142–195; BP diastolic 76–106
--- NOTE | 2025-05-04 05:51 | NUR ---
SHIFT SUMMARY: PT IS DOING WELL AND RESTING IN BED. PT WAS ABLE TO SLEEP PART OF THE NIGHT. PT'S BP STARTED TO INCREASE THE SHIFT PROGRESSED AND PT WAS GIVEN MEDS PER EMR ORDERS. PT ABLE TO AMBULATE VIA 1-PERSON ASSIST. LINES AND CORDS PLACED OUT OF REACH. CALL LIGHT PLACED WITHIN REACH. PT ABLE TO MAKE NEEDS KNOWN.
--- NOTE | 2025-05-04 07:36 | NUR ---
AM NOTE: THIS RN ASSUMED CARE OF PT AT APPROX 0700, BEDSIDE REPORT FROM NOC RN. PT A/OX4, ABLE TO MAKE NEEDS KNOWN & PARTICIPATE IN CARE. NEURO EXAM COMPLETED, WNL. NO UNILATERAL DEFICITS OBSERVED. HR 60'S, SINUS RHYTHM ON MONITOR. HTN NOTED, AM ANTIHYPERTENSIVES ADMINISTERED PER EMAR. PT DENIES CHEST PAIN/PRESSURE, ENDORSES HEADACHE WHEN SITTING/STANDING. SPO2 >90% ON 2L O2 VIA NC. AFEBRILE. PIV TO RAC SALINE LOCKED. PERMACATH TO R CHEST WNL. ABLE TO REPOSITION SELF IN BED, USES CALL LIGHT APPROPRIATELY. NO OTHER NEEDS AT THIS TIME.
[2025-05-04] MEDS ORDERED: Calcium Acetat667 MG PO (08:26)
[2025-05-04] MEDS ORDERED: EZET10 PO (08:27)
[2025-05-04] MEDS ORDERED: LOKELMA10 GM PO (08:34)
[2025-05-04] MEDS ORDERED: Vitamin B Cmplx/Vit C/Folic Ac 1 Tab PO SCH (09:00)
[2025-05-04 09:03] LABS: Anion Gap 9.0 mmol/L (3-11); Blood Urea Nitrogen 42.0 mg/dL (8-24); CO2, Blood 30.0 mmol/L (21-32); Calcium, Blood 7.8 mg/dL (8.5-10.1); Chloride, Blood 99.0 mmol/L (98-108); Creatinine, Blood 7.85 mg/dL (0.60-1.20); Glucose, Blood 102.0 mg/dL (70-99); Potassium, Blood 4.4 mmol/L (3.5-5.5); Sodium, Blood 134.0 mmol/L (136-145)
--- NOTE | 2025-05-04 11:01 | NUR ---
PHYSICIAN CONTACT: CBG RESULT 55 AT 1057. PT WAKES EASILY, ORIENTED X4, DENIES SYMPTOMS. ABLE TO DRINK APPLE JUICE. CALL PLACED TO DR. RODGERS REGARDING HYPOGLYCEMIA. TO ADJUST INSULIN DOSE FOR THIS EVENING & ORDER HYPOGLYCEMIA PROTOCOL.
--- NOTE | 2025-05-04 16:35 | NUR ---
END OF SHIFT NOTE: PT REMAINS A/OX4, ABLE TO MAKE NEEDS KNOWN. NEURO EXAM REMAINS UNCHANGED, WNL. AIRPORT MANAGER STRENGTH EQUAL BILATERALLY, NO FACIAL DROOP OR OTHER UNILATERAL DEFICITS OBSERVED. SPEECH IS CLEAR. MOVES ALL EXTREMITIES. PT W/ 1 EPISODE OF EMESIS THIS AM, ZOFRAN & ANTIHYPERTENSIVES ADMINISTERED PER EMAR. SBP 140'S AT THIS TIME, PT DENIES HEADACHE/DIZZINESS. HR 60-70'S, SINUS RHYTHM ON MONITOR. SPO2 >90% ON ROOM AIR. AFEBRILE. NO URINARY VOIDS THIS SHIFT. 1 BM. UP FOR SHOWER TODAY. PIV TO RAC SALINE LOCKED, PERMACATH TO R CHEST WNL. CBWarren DELGADO MD AWARE. SEE PREVIOUS NOTE. VISITOR AT BEDSIDE AT THIS TIME, CALL LIGHT IN REACH.
--- NOTE | 2025-05-04 19:40 | NUR ---
ASSUMPTION OF CARE: ASSUMED CARE AT START OF SHIFT (1899). REPORT RECEIVED FROM DAY SHIFT RN. PT IS DOING WELL AND RESTING IN BED. PT IS ALERT AND FOLLOWING COMMANDS. PT DENIES ANY PAIN, CP, OR SOB AT THIS TIME. LUNG SOUNDS ARE CLEAR AND EQUAL BILATERALLY, ON RA WITH SPO2 >92%. SINUS RYTHM WITH SBP:150-160'S MAP >65 HR: 70'S. IV: RAC. DIALYSIS PORT IN R UPPER CHEST. PT ABLE AMBULATE WITH MINIMAL ASSISTANCE. LINES AND CORDS PLACED OUT OF REACH. CALL LIGHT PLACED WITHIN REACH.
[2025-05-04] MEDS ORDERED: Insulin Glargine 100 Unit/ML 3 ML SYR SC SCH (21:00)
[2025-05-05] VITALS (24 sets, daily range): BP systolic 132–205; BP diastolic 72–107
[2025-05-05 04:01] LABS: Anion Gap 13.0 mmol/L (3-11); Blood Urea Nitrogen 53.0 mg/dL (8-24); CO2, Blood 26.0 mmol/L (21-32); Calcium, Blood 7.6 mg/dL (8.5-10.1); Chloride, Blood 100.0 mmol/L (98-108); Creatinine, Blood 8.94 mg/dL (0.60-1.20); Glucose, Blood 241.0 mg/dL (70-99); Potassium, Blood 5.2 mmol/L (3.5-5.5); Sodium, Blood 134.0 mmol/L (136-145)
--- NOTE | 2025-05-05 05:55 | NUR ---
SHIFT SUMMARY: PT IS DOING WELL AND RESTING IN BED. NO ACUTE CHANGES THROUGHOUT THE SHIFT. PT'S BECAME MORE HYPERTENSIVE THE NIGHT PROGRESSED. PT WAS GIVEN MEDICATIONS PER EMR ORDERS. PT WAS ABLE TO SLEEP MOST OF THE NIGHT. SPO2 LEVEL DECREASED INTO THE 80'S WHEN PT WAS SLEEPING, PT PLACED ON O2 @ 2LPM VIA NC AND SPO2 >95%. LINES AND CORDS PLACED OUT OF REACH. CALL LIGHT PLACED WITHIN REACH. PT ABLE TO MAKE NEEDS KNOWN.
[2025-05-05] MEDS ORDERED: Insulin Glargine 100 Unit/ML 3 ML SYR SC SCH (09:00)
[2025-05-05] MEDS ORDERED: Isosorbide Mononitrate 60 MG TABCR PO SCH (09:00)
--- NOTE | 2025-05-05 10:53 | NUR ---
ASSUMPTION OF CARE ASSUMED CARE OF PATIENT APPROX 0700, PT IS RESTING IN BED AT THIS TIME. PT REMAINS A/O X4, ANSWERS QUESTIONS APPROPRIATELY, BLOOD PRESSURE REMAINS ELEVATED WITH SYSTOLIC IN THE 170S TO LOW 200S, ENDORSES HEADACHE AND BLURRY VISION, PROVIDER AWARE AND ORDERS UPDATED IN EMAR. SINUS RHYTHM ON MONITOR WITH RATE IN THE 60S-70S. SPO2 >93% ON 2L NC. ABLE TO AMBULATE TO BATHROOM WITH SB ASSIST, DENIES UNMET NEEDS AT THIS TIME, CALL LIGHT WITHIN REACH.
[2025-05-05] MEDS ORDERED: HydrALAZINE HCl 20 MG / ML 1ML Vial IV PRN (17:40)
--- NOTE | 2025-05-05 18:14 | NUR ---
SHIFT SUMMARY PT REMAINS A/O X4, ABLE TO USE CALL LIGHT AND MAKE NEEDS KNOWN. PT REMAINS IN SINUS RHYTHM WITH RATE IN THE 60S-70S. BP REMAINS ELEVATED WITH SYSTOLIC IN THE 130S-150S THROUGHOUT SHIFT. PT WAS ON 2L NC WHILE SLEEPING FLAT ON BACK, IS CURRENTLY ON RA WITH SATS >90% , DENIES UNMET NEEDS AT THIS TIME, CALL LIGHT WITHIN REACH.
--- NOTE | 2025-05-05 20:03 | NUR ---
ASSUMPTION OF CARE: ASSUMED CARE AT START OF SHIFT (1899). REPORT RECEIVED FROM DAY SHIFT RN. PT IS DOING WELL AND RESTING IN BED. PT IS ALERT AND FOLLOWING COMMANDS. PT STATES HAVING SLIGHT DISCOMFORT IN R LOWER FLANK AREA BUT NO CP OR SOB AT THIS TIME. LUNG SOUNDS ARE CLEAR AND EQUAL BILATERALLY, ON RA WITH SPO2 >95%. SINUS RYTHM WITH SBP: 130-150'S MAP >65 HR: 60'S. IV: PERIPHERAL IN RAC. PT ABLE TO AMBULATE WITH MINIMAL ASSISTANCE. LINES AND CORDS PLACED OUT OF REACH. CALL LIGHT PLACED WITHIN REACH.
[2025-05-06] VITALS (26 sets, daily range): BP systolic 130–194; BP diastolic 66–106
[2025-05-06 04:13] LABS: Anion Gap 10.0 mmol/L (3-11); Blood Urea Nitrogen 65.0 mg/dL (8-24); CO2, Blood 25.0 mmol/L (21-32); Calcium, Blood 7.4 mg/dL (8.5-10.1); Chloride, Blood 103.0 mmol/L (98-108); Creatinine, Blood 10.0 mg/dL (0.60-1.20); Glucose, Blood 102.0 mg/dL (70-99); Potassium, Blood 5.0 mmol/L (3.5-5.5); Sodium, Blood 133.0 mmol/L (136-145)
--- NOTE | 2025-05-06 06:34 | NUR ---
SHIFT SUMMARY: PT IS DOING WELL AND RESTING IN BED. PT WAS ABLE TO SLEEP MOST OF THE NIGHT. AROUND 0600 THIS MORNING PT STATED THAT THEY FELT LIKE THEIR BLOOD SUGAR WAS LOW. BLOOD GLUCOSE CHECKED AND IT WAS 59. PT WAS GIVEN SOME CRACKERS AND JUICE. BG RECHECKED AND IT INCREASED TO 66. PT WAS GIVEN SOME MORE JUICE AND CRAKCERS. VITALS HAVE BEEN STABLE THROUGHOUT THE SHIFT. PT IS ABLE TO AMUBLATE WITH MINIMAL ASISTANCE. LINES AND CORDS PLACED OUT OF REACH. CALL LIGHT PLACED WITHIN REACH.
--- NOTE | 2025-05-06 07:21 | NUR ---
ASSUMPTION OF CARE RECEIVED REPORT FROM [facility] NURSE. PT IS A&OX4, FOLLOWS COMMANDS AND USES CALL LIGHT APPROPRIATELY. PT IN NSR, HR IN 70S, MAP >65. SBP 155, PRN MEDS IN EMAR FOR HTN. PT DENIES CHEST PAIN/PRESSURE. PT ON 2L NC, SPO2 >92%. LUNG SOUNDS CLEAR T/O. PT DENIES ABD PAIN. PT AMBULATES TO [facility] NEEDED WITH NURSE ASSIST FOR LINES/CORDS. PT REPORTS SOME MINIMAL NEUROPATHY IN FEET BUT STILL HAS MAJORITY OF FEELING IN HIS FEET. NO FURTHER NEEDS EXPRESSED AT THIS TIME, CALL LIGHT WITHIN REACH.
[2025-05-06] MEDS ORDERED: Insulin Glargine 100 Unit/ML 3 ML SYR SC SCH (09:00)
[2025-05-06] MEDS ORDERED: HYDROcodone 5-APAP 325 TAB PO PRN (12:25)
[2025-05-06] MEDS ORDERED: B-COMPLEX WITH1 EAC2 PO (14:12)
[2025-05-06] MEDS ORDERED: DOXA2 PO (14:13)
[2025-05-06] MEDS ORDERED: HUMALOG KW100 UNIT/1 SC (14:15)
--- NOTE | 2025-05-06 18:37 | NUR ---
SHIFT SUMMARY PT A&OX4, T/O SHIFT. PT ON RA, SPO2 >92% DENIES SOB. PT IN NSR, HR IN IN 70-80S, SBP IN 130S-190S. PRN MEDS IN EMAR. PT DENIES ABD PAIN, AMBULATES TO BSC. PT IN ESRD, DIALYSIS TODAY, 1.6L OFF TODAY. PT ENDED DIALYSIS EARLY D/T ADAM AND NAUSEA. PT HAD EPISODES OF HYPOGLYCEMIA AT 0700 AND AT 1630 WITH A BLOOD SUGAR OF 77. GAVE PT ORANGE JUICE AND CARBS, REPEAT BLOOD SUGAR >100. PT HAD EPISODE OF NAUSEA, APPROX 100ML OF EMESIS, PRN MEDS IN EMAR. CALL LIGHT WITHIN REACH AND NO NEEDS EXPRESSED AT THIS TIME.
--- NOTE | 2025-05-06 22:45 | NUR ---
ASSUMED CARE I TOOK OVER PT CARE FROM TEENA MEHTA. PT A/OX4, ON ROOM AIR, VSS. PT REPORTS NAUSEA BUT IMPROVING WITH REST. UP TO BSC, CALLS FOR SAFETY BUT AMBULATES INDEPENDENTLY. LAYING IN BED PLAYING GAMES ON HIS PHONE. CALL LIGHT IN REACH.
[2025-05-07] VITALS (12 sets, daily range): BP systolic 146–174; BP diastolic 68–100
--- NOTE | 2025-05-07 03:04 | NUR ---
TRANSFER SUMMARY PT A/OX4, ON ROOM AIR, VSS. PT TRANSFERRED TO MEDICAL FLOOR ROOM VIA WHEELCHAIR WITH 2 RNS. PT BELONGINGS AND CHART TAKEN UP WITH PT. REPORT WAS GIVEN TO ONCOMING NURSE PRIOR TO TRANSFER, ALL QUESTIONS ANSWERED. NO ACUTE EVENTS.
--- NOTE | 2025-05-07 03:14 | NUR ---
REPORT RECEIVED FROM PATCHER VANE. PATIENT ARRIVED TO THE MEDICAL FLOOR @0258 IN A W/C AND TRANSFERRED INDEPENDENTLY TO THE HOSPITAL BED. PT BROUGHT ALL HIS BELONINGS WITH HIM. PT WAS EDUCATED SOFT DRINK POWDER MIXER LIGHT, AND FALL PRECAUTIONS. PT IS WEARING NONH-SLIP SOCKS. BED AT THE LOWEST POSITION, CALL LIGHT W/I REACH. PT IS A/OX4, ABLE TO MAKE HIS NEEDS KNOWN AND COOPERATIVE WITH CARE.
[2025-05-07] MEDS ORDERED: Insulin Human Lispro 100 Units/ML 3ML Syringe SC SCH (07:30)
--- NOTE | 2025-05-07 10:42 | NUR ---
THIS RN ASSESSED PT ON ARRIVAL TO ROOM 308 AFTER DIALYSIS. PT REPORTED FEELING DIZZY, PER PT THIS IS TYPICAL AFTER HE GETS DIALYSIS. VSS.
--- NOTE | 2025-05-07 14:23 | NUR ---
PT DISCHARGED VIA WHEELCHAIR OUT OF THE [facility] ENTRANCE. DISCHARGE EDUCATION PROVIDED TO PT, PT VERBALIZED UNDERSTANDING.
== END 2025-05-07 14:21 | disposition home or self-care (01) | DRG 61 ==
LOC: ER 07:30 → ICUE 11:23 → MEDS 05-07 02:53
PROVIDERS: Internal Medicine; Student in an Organized Health Care Education/Training Program; ADMIT Internal Medicine
PROC: 3E03317 Introduction of Other Thrombolytic into Peripheral Vein, Percutaneous Approach (ICD-10-PCS; principal; 2025-05-02)
PROC: 5A1D70Z Performance of Urinary Filtration, Intermittent, Less than 6 Hours Per Day (ICD-10-PCS; 2025-05-03)
DX: I63.9 Cerebral infarction, unspecified (principal); N18.6 End stage renal disease; G45.9 Transient cerebral ischemic attack, unspecified; I12.0 Hypertensive chronic kidney disease with stage 5 chronic kidney disease or end stage renal disease; G81.91 Hemiplegia, unspecified affecting right dominant side; I25.10 Atherosclerotic heart disease of native coronary artery without angina pectoris; I16.0 Hypertensive urgency; E10.22 Type 1 diabetes mellitus with diabetic chronic kidney disease; E10.649 Type 1 diabetes mellitus with hypoglycemia without coma; E78.5 Hyperlipidemia, unspecified; F32.A Depression, unspecified; F17.210 Nicotine dependence, cigarettes, uncomplicated; R29.706 NIHSS score 6; D63.1 Anemia in chronic kidney disease; E87.70 Fluid overload, unspecified; Z99.2 Dependence on renal dialysis; Z86.73 Personal history of transient ischemic attack (TIA), and cerebral infarction without residual deficits; Z88.8 Allergy status to other drugs, medicaments and biological substances; Z79.82 Long term (current) use of aspirin; Z79.02 Long term (current) use of antithrombotics/antiplatelets; Z79.4 Long term (current) use of insulin; I25.2 Old myocardial infarction; Z95.5 Presence of coronary angioplasty implant and graft
CPT/HCPCS: 36415; 37195; 70450; 70496; 70498; 70551; 80048; 80053; 80069; 82947; 83735; 85025; 85027; 93005; 93010; 94640; 94664; 94762; 96374; 99291-25; A9270; J0360; J1815; J2405; J3101; J7050; Q9967

== ENCOUNTER 2025-05-16 18:05 | Inpatient (IN) | payer OTHER ==
[~2025-05-16] VITALS: Ht 172.7 cm; Wt 86.4 kg
[~2025-05-16 18:05] MED LIST changes: +AFRIN15 M6 NS; +B-COMPLEX WITH1 EAC2 PO; +Calcium Acetat667 MG PO; +DOXA2 PO; +EZET10 PO; +HYDRA25 PO; -LOSARTAN POTASS50 M1 PO; +METO25 PO; +OXYC5 PO
[2025-05-16 18:34] LABS: pH Blood Venous 7.41 (7.34-7.37)
[2025-05-16 18:42] LABS: BASOPHILS ABSOLUTE AUTO 0.04 K/mm3 (0.00-0.23); BASOPHILS PERCENT AUTO 1 % (0-2); EOSINOPHILS ABSOLUTE AUTO 0.15 K/mm3 (0.00-0.68); EOSINOPHILS PERCENT AUTO 2 % (0-6); Hematocrit 33.8 % (37.0-53.0); Hemoglobin 10.8 g/dL (13.5-17.5); IMMATURE GRAN ABSOLUTE AUTO 0.05 K/mm3 (0.00-0.10); IMMATURE GRAN PERCENT AUTO 1 % (0-1); LYMPHOCYTES ABSOLUTE AUTO 0.75 K/mm3 (0.84-5.20); LYMPHOCYTES PERCENT AUTO 10 % (21-46); MONOCYTES ABSOLUTE AUTO 0.86 K/mm3 (0.16-1.47); MONOCYTES PERCENT AUTO 12 % (4-13); Mean Corpuscular HGB Conc 32.0 g/dL (31.5-36.5); Mean Corpuscular Volume 88 fL (80-100); NEUTROPHILS ABSOLUTE AUTO 5.58 K/mm3 (1.96-9.15); NEUTROPHILS PERCENT AUTO 75 % (41-73); NRBC ABSOLUTE 0.00 K/mm3 (0.00-0.02); NRBC Auto 0.0 /100 WBC (0.0-0.2); Platelet Count 209 K/mm3 (150-400); RDW Coefficient Variation 14.3 % (11.7-14.2); RDW Standard Deviation 45.9 fL (35.1-46.3)
[2025-05-16] MEDS ORDERED: Calcium Gluconate 10% 100 MG/ML INJ IV ONE (19:25)
[2025-05-16 19:26] LABS: Alanine Aminotransfer (ALT/SGP 84 U/L (12-78); Albumin, Blood 2.6 g/dL (3.4-5.0); Albumin/Globulin Ratio 0.8 (0.8-1.8); Anion Gap 16 mmol/L (3-11); Aspartate Aminotrans (AST/SGOT 108 U/L (12-37); Bilirubin, Total 1.0 mg/dL (0.1-1.0); Blood Urea Nitrogen 50 mg/dL (8-24); CO2, Blood 24 mmol/L (21-32); Calcium, Blood 7.3 mg/dL (8.5-10.1); Chloride, Blood 92 mmol/L (98-108); Creatinine, Blood 7.61 mg/dL (0.60-1.20); Globulin, Blood 3.4 g/dL (2.2-4.0); Glucose, Blood 1131 mg/dL (70-99); Potassium, Blood 6.2 mmol/L (3.5-5.5); Sodium, Blood 126 mmol/L (136-145); Total Protein, Blood 6.0 g/dL (6.4-8.2)
[2025-05-16] MEDS ORDERED: Insulin Regular 100 Unit/ML 1ML Dose SC ONE (19:40)
[2025-05-16] MEDS ORDERED: Insulin Human Regular 100 UNIT in NS 100 ML IV SCH (19:40)
[2025-05-16] MEDS ORDERED: Ondansetron HCl 2 MG / ML 2ML Vial IV PRN ×2 (19:40→22:25)
[2025-05-16 20:10] LABS: Magnesium, Blood 2.1 mg/dL (1.6-2.4)
[2025-05-16 20:14] LABS: Potassium, Blood 6.2 mmol/L (3.5-5.5)
[2025-05-16 22:00] VITALS: BP 220/110
[2025-05-16] MEDS ORDERED: HydrALAZINE HCl 20 MG / ML 1ML Vial IV ONE (22:00)
[2025-05-16] MEDS ORDERED: FentaNYL Citrate 50 MCG/ML 2 ML Injection IV ONE (22:00)
[2025-05-16] MEDS ORDERED: FentaNYL Citrate 50 MCG/ML 2 ML Injection IV PRN (22:20)
[2025-05-16] MEDS ORDERED: FLU VACC TS2025-26(6MOS UP)/PF 45 MCG/0.5 ML SYRINGE IM SCH (22:20)
[2025-05-16] MEDS ORDERED: HydrALAZINE HCl 20 MG / ML 1ML Vial IV PRN (22:20)
[2025-05-16 22:30] VITALS: BP 216/104
[2025-05-16 22:32] LABS: Glucose, Blood 1035 mg/dL (70-99)
[2025-05-16 23:00] VITALS: BP 208/97
--- NOTE | 2025-05-16 23:10 | NUR ---
ADMISSION NOTE PT ARRIVED AT 2151 VIA GURNEY FROM ED AND TRANSFERRED W/O INCIDENT TO ICU 2 BED. PT IN MOD DISTRESS, SEEMINGLY FROM 5/10 NAUSEA. ALERT AND ORIENTED. BLURRY VISION BUT GROSSLY INTACT IN ALL MAR. MAEW. AFEBRILE. SINUS RHYTHM IN THE 70'S WITH ELEVATED BP 210/106. PT HAS BEEN GIVEN 10MG OF HYDRALAZINE AND 0.1 MG OF CLONIDINE IN ED- WILL ADVOCATE FOR MORE BP LOWERING MEDS. PT DENIES HEADACHE AT THIS TIME. FEELS TIRED. PT DENIES CHEST PAIN/PRESSURE. 2L NC PRODUCING SAT > 92% NO SOB. LUNGS CLEAR. PT HAS NAUSEA, GIVEN ZOFRAN 4MG, WHICH HELPED CONSIDERABLY. NO EMESIS SINCE ADMIT. INSULIN INFUSING AT 6.8 ML/HR. AWAITING NEXT GLUCOSE. PT FATHER IN ROOM WITH PT. FATHER GIVEN PT'S KNIFE. OTHER ITEMS THAT ARE STAYING IN ROOM ARE SHOES, SOCKS, JEANS, T-SHIRT.
[2025-05-16 23:14] LABS: Anion Gap 14.0 mmol/L (3-11); Blood Urea Nitrogen 59.0 mg/dL (8-24); CO2, Blood 24.0 mmol/L (21-32); Calcium, Blood 7.4 mg/dL (8.5-10.1); Chloride, Blood 95.0 mmol/L (98-108); Creatinine, Blood 7.7 mg/dL (0.60-1.20); Glucose, Blood 848.0 mg/dL (70-99); Potassium, Blood 5.4 mmol/L (3.5-5.5); Sodium, Blood 128.0 mmol/L (136-145)
[2025-05-16 23:30] VITALS: BP 204/86
[2025-05-17] VITALS (85 sets, daily range): BP systolic 131–215; BP diastolic 68–112
[2025-05-17 00:16] LABS: Glucose, Blood 730 mg/dL (70-99)
[2025-05-17] MEDS ORDERED: NiCARdipine HCL 50 MG in NS 250 ML IV SCH (01:35)
[2025-05-17 03:27] LABS: Anion Gap 13.0 mmol/L (3-11); Blood Urea Nitrogen 62.0 mg/dL (8-24); CO2, Blood 25.0 mmol/L (21-32); Calcium, Blood 8.0 mg/dL (8.5-10.1); Chloride, Blood 98.0 mmol/L (98-108); Creatinine, Blood 7.91 mg/dL (0.60-1.20); Glucose, Blood 367.0 mg/dL (70-99); Potassium, Blood 5.2 mmol/L (3.5-5.5); Sodium, Blood 131.0 mmol/L (136-145)
[2025-05-17] MEDS ORDERED: Albuterol HFA200 ACT/6.7 GM INH INH PRN (06:50)
[2025-05-17 07:11] LABS: BASOPHILS ABSOLUTE AUTO 0.05 K/mm3 (0.00-0.23); BASOPHILS PERCENT AUTO 0 % (0-2); EOSINOPHILS ABSOLUTE AUTO 0.14 K/mm3 (0.00-0.68); EOSINOPHILS PERCENT AUTO 1 % (0-6); Hematocrit 33.8 % (37.0-53.0); Hemoglobin 11.3 g/dL (13.5-17.5); IMMATURE GRAN ABSOLUTE AUTO 0.05 K/mm3 (0.00-0.10); IMMATURE GRAN PERCENT AUTO 0 % (0-1); LYMPHOCYTES ABSOLUTE AUTO 0.98 K/mm3 (0.84-5.20); LYMPHOCYTES PERCENT AUTO 9 % (21-46); MONOCYTES ABSOLUTE AUTO 1.12 K/mm3 (0.16-1.47); MONOCYTES PERCENT AUTO 10 % (4-13); Mean Corpuscular HGB Conc 33.4 g/dL (31.5-36.5); NEUTROPHILS ABSOLUTE AUTO 9.04 K/mm3 (1.96-9.15); NEUTROPHILS PERCENT AUTO 80 % (41-73); NRBC ABSOLUTE 0.00 K/mm3 (0.00-0.02); NRBC Auto 0.0 /100 WBC (0.0-0.2); Platelet Count 225 K/mm3 (150-400); RDW Coefficient Variation 14.3 % (11.7-14.2); RDW Standard Deviation 43.4 fL (35.1-46.3)
--- NOTE | 2025-05-17 07:26 | NUR ---
SHIFT SUMMARY PT LYING IN BED SLEEPING, IN MILD DISTRESS, AWAKES TO VOICE AND IS ALERT AND ORIENTED TO ALL. VISION CONTINUES TO BE BLURRY, EVEN WITH GLASSES BUT NO FIELD DEFICITS PRESENT. AFEBRILE 98.0. MAEW. STRENGTH IN EXTREMITIES APPEARS INTACT. PT IN SINUS RHYTHM WITH RATE OF 80; BP IS ELEVATED WITH SBP OF 164. SBP WAS ABOVE 190 FOR MUCH OF SHIFT DESPITE HYDRALAZINE AND CLONIDINE. NICARDIPINE WAS STARTED AND THEN STOPPED AT 0645. PT DENIES CHEST PAIN/PRESSURE OR SOB. PT STRUGGLED WITH NAUSEA AT NUMEROUS TIMES DURING SHIFT. ZOFRAN AMELIORATED SYMPTOMS SOME. PT LAST POC GLUCOSE AT 0645 WAS 171, THE FIRST MEASUREMENT BELOW 250, SO IT WAS TURNED OFF. THIS INFO RELAYED TO ONCOMING RN. DIEGO WAS CONSULTED. BEDSIDE SHIFT REPORT GIVEN TO DAY RN.
[2025-05-17 07:30] LABS: Mean Corpuscular Volume 83 fL (80-100)
--- NOTE | 2025-05-17 07:30 | NUR ---
ASSUMED CARE REPORT RECEIVED FROM BLAIR DICKINSON. INSULIN DRIP AND NICARDAPINE OFF AT 0645. BP >170 AND NICARDAPINE RESTARTED AT 2.5. PT ALERT AND ORIENTED X 3. NAUSE MOSTLY GONE. BG >150. INSULIN RESTARTED AT .9.
[2025-05-17] MEDS ORDERED: Insulin Glargine 100 Unit/ML 3 ML SYR SC SCH (07:37)
[2025-05-17 07:41] LABS: Alanine Aminotransfer (ALT/SGP 95.0 U/L (12-78); Albumin, Blood 2.8 g/dL (3.4-5.0); Albumin/Globulin Ratio 0.8 (0.8-1.8); Anion Gap 12.0 mmol/L (3-11); Aspartate Aminotrans (AST/SGOT 57.0 U/L (12-37); Bilirubin, Total 0.9 mg/dL (0.1-1.0); Blood Urea Nitrogen 59.0 mg/dL (8-24); CO2, Blood 27.0 mmol/L (21-32); Calcium, Blood 8.0 mg/dL (8.5-10.1); Chloride, Blood 97.0 mmol/L (98-108); Creatinine, Blood 8.4 mg/dL (0.60-1.20); Globulin, Blood 3.7 g/dL (2.2-4.0); Glucose, Blood 184.0 mg/dL (70-99); Potassium, Blood 5.3 mmol/L (3.5-5.5); Sodium, Blood 131.0 mmol/L (136-145); Total Protein, Blood 6.5 g/dL (6.4-8.2)
[2025-05-17] MEDS ORDERED: Insulin Glargine-Yfgn 100 Unit/mL 3 ML SYR SC SCH (08:00)
[2025-05-17] MEDS ORDERED: D5W-1/2NS 1,000 ML IV SCH (08:00)
[2025-05-17] MEDS ORDERED: Calcium Acetate 667 MG Gel Cap PO SCH (08:30)
[2025-05-17] MEDS ORDERED: Isosorbide Mononitrate 60 MG TABCR PO SCH (09:00)
[2025-05-17 11:29] LABS: Anion Gap 13.0 mmol/L (3-11); Blood Urea Nitrogen 61.0 mg/dL (8-24); CO2, Blood 26.0 mmol/L (21-32); Calcium, Blood 7.9 mg/dL (8.5-10.1); Chloride, Blood 97.0 mmol/L (98-108); Creatinine, Blood 8.4 mg/dL (0.60-1.20); Glucose, Blood 169.0 mg/dL (70-99); Potassium, Blood 5.2 mmol/L (3.5-5.5); Sodium, Blood 131.0 mmol/L (136-145)
[2025-05-17] MEDS ORDERED: Insulin Human Lispro 100 Units/ML 3ML Syringe SC SCH (12:30)
--- NOTE | 2025-05-17 12:43 | NUR ---
CBG 222. DR. LOERA CALLED. MED SHORT ACTING ORDER PLACED.
--- NOTE | 2025-05-17 17:47 | NUR ---
END OF SHIFT PT ALERT AND ORIENTED. VISION REMAIN IMPAIRED. INSULIN DRIP AND D5 DRIP OFF AT 11AM AND TRANSITIONED TO MEDIUM SLIDING SCALE. NICARAPINE TITIRATED FROM 2.4 TO 5MG AND TITRATED OFF AT 3PM. PT RECEIVED DIALYSIS TODAY AND 2776 REMOVED. PO MEDICATIONS RESTARTED. CONSISTANT CARB DIET STARTED. 0 C/O NAUSEA TODAY. PRN LABETOLOL ORDER OBTAIN FOR SBP >170. 0 C/O PAIN.
--- NOTE | 2025-05-17 21:00 | NUR ---
ASSUMPTION OF CARE BEDSIDE SHIFT REPORT RECEIVED FROM DAY RN, THUS ASSUMING CARE OF THIS PT WHO IS IN NO APPARENT DISTRESS AT THIS TIME. ALERT AND ORIENTED. VISION NO LONGER BLURRY. MAEW. AFEBRILE. SINUS RHYTHM IN THE 70'S WITH ELEVATED BP, THOUGH MUCH LOWER THAN YESTERDAY, FOLLOWING DIALYSIS WITH 2700ML REMOVED. WILL GIVE SCHEDULED BP MEDS AND PRN MEDS IF NEEDED. PT DENIES CHEST PAIN/PRESSURE. RA WHILE AWAKE AND 2L NC WHILE SLEEPING PRODUCING SAT > 92% NO SOB. LUNGS CLEAR AND DIMINSIHED IN THE BASES. PT HAS MILD NAUSEA, NO ZOFRAN GIVEN. NO EMESIS SINCE ADMIT. INSULIN OFF. 10UNITS OF LONG-ACTING GIVEN AT PM ALONG WITH 8 UNITS OF SHORT-ACTING FOR POC GLUCOSE OF 334. WILL REVIEW AND CONTINUE PLAN OF CARE.
[2025-05-18] VITALS (50 sets, daily range): BP systolic 138–183; BP diastolic 66–102
--- NOTE | 2025-05-18 02:16 | NUR ---
UPDATE FOR FIRST TIME TONIGHT, PT BEGINS TO C/O BLURRY VISION AT 0130. PT SBP EXCEEDED 170 AT MIDNIGHT FOR THE FIRST TIME SINCE MIDNIGHT. PT THOUGHT IT WAS DUE TO GLUCOSE LEVEL AND ASKED ME TO CHECK IT- 212 WAS THE RESULT. PT GIVEN 10MG HYDRALAZINE ORDERED PRN. SBP WENT FROM 187 TO 166. PT VISION IS STILL BLURRY AT THIS TIME.
--- NOTE | 2025-05-18 03:01 | NUR ---
UPDATE: FOLLOWING ONE DOSE OF 10MG HYDRALAZINE PT SBP DECREASED FROM 183 TO 166 AND THEN 154 AT 0230. PT NOTES A DECREASE IN BLURRY VISION ALONG WITH THIS DECREASE. WILL ATTEMPT TO KEEP SBP BELOW 170
[2025-05-18] MEDS ORDERED: HydrALAZINE HCl 20 MG / ML 1ML Vial IV ONE (03:35)
[2025-05-18 03:45] LABS: Albumin, Blood 2.3 g/dL (3.4-5.0); Anion Gap 9 mmol/L (3-11); Blood Urea Nitrogen 41 mg/dL (8-24); CO2, Blood 32 mmol/L (21-32); Calcium, Blood 8.4 mg/dL (8.5-10.1); Chloride, Blood 98 mmol/L (98-108); Creatinine, Blood 5.85 mg/dL (0.60-1.20); Glucose, Blood 190 mg/dL (70-99); Phosphorus, Blood 4.9 mg/dL (2.5-4.9); Potassium, Blood 5.0 mmol/L (3.5-5.5); Sodium, Blood 134 mmol/L (136-145)
--- NOTE | 2025-05-18 06:30 | NUR ---
SHIFT SUMMARY PT LYING IN BED PLAYING ON TABLET. ALERT AND ORIENTED. PT C/O MILD BLURRY VISION. BLURRY VISION INCREASES WITH INCREASING SBP. AFEBRILE. MOVES AROUND WELL. APPROPRIATE WITH CALL LIGHT. SYMMETRIC STRENGTH IN FACIAL, ARM/HANDS, AND LEG MUSCLES. SINUS RHYTHM IN THE 70'S WITH ELEVATED BP. GIVEN TWO DOSES OF HYDRALAZINE DURING SHIFT FOR SBP GREATER THAN 170. PT DENIED CHEST PAIN/PRESSURE, SOB THROUGHOUT SHIFT. RA PRODUCING SATURATION > 90%, HE OCCASIONALLY DESATURATES TO 88%. PT WILLING TO WEAR O2 BUT WOULD RATHER NOT UNLESS NECESSARY DUE TO DRY NARES. NO BM OR NAUSEA DURING SHIFT. NO AB PAIN. BOWEL SOUNDS ACTIVE THROUGHOUT. NO URINE OUTPUT. SALINE LOCKED. AM LABS WITHIN NORMAL LIMITS BESIDES BUN/CREATININE, HIGH WBC AT 11. BEDSIDE SHIFT REPORT GIVEN TO ONCOMING RN.
--- NOTE | 2025-05-18 07:15 | NUR ---
ASSUMPTION OF CARE. REPORT RECEIVED FROM BLAIR DICKINSON. PT ALERT AND ORIENTED X 3. 0 C/O PAIN, NAUSEA, OR DIZZINESS. LT AND RT PIVS FLUSH EASILY BUT DO NOT DRAW BLOOD. PT TAKING FOOD AND FLUID WELLS. ACCUCHECK IS 131. PT REPOSITIONING SELF IN BED.BLOOD PRESSURE IS <170. WILL MONITOR.
[2025-05-18] MEDS ORDERED: HydrALAZINE HCl 20 MG / ML 1ML Vial IV PRN (07:35)
--- NOTE | 2025-05-18 10:16 | NUR ---
dR. LOERA NOTIFIED OF PT'S SBP REMAINING BETWEEN 170-176. PO MEDICATIONS GIVEN [address] LOERA ORDERED 1 DOSE OF HYDRALIZINE GIVEN IVP NOW. WILL CONTINUE TO MONITOR.
--- NOTE | 2025-05-18 15:02 | NUR ---
PT C/O BLACK LINE IN RT VISION FIELD IN THE UPPER RT QUADRANT. NONE FROM THE LEFT EYE. PT HAS HAD VISUAL FLOATERS BEFORE BUT THIS IS FISHHOOKED SHAPED AND LARGER. THIS APPEARED AFT READING ON CELL PHONE, BRUSHING TEETH AND AND WASHING FACE. 0 C/O PAIN, NAUSEA, OR DIZZINESS. SPB 140. 0 REDNESS OR DISCHARGE FROM EYE. PT CLOSED EYES FOR 10 MINUTES AND REOPENED EYES WITH FLOATER STILL REMAINING. DR. LOERA NOTIFIED. WILL MONITOR.
--- NOTE | 2025-05-18 17:23 | NUR ---
END OF SHIFT PT STATES HE FEELS MUCH BETTER TODAY. PT HAS BS RANGING IN THE 200 HUNDREDS WITH MEDIUM SLIDING SCALE COVERAGE. lANTUS INCREASED TODAY. BPRANGING 140-160. PT DID RECEIVE 1 DOSE OF HYDRALIZINE IVP THIS AM. PT AMBULATED TO TOILET EASILY AND BACK TO BED WITHOUT PAIN OR SOB. 0 NAUSEA. PT C/O FISH HOOK SHAPED FLOATER IN RT EYE VISION . HE HAS HAD FLOATERS IN THE PAST. DR. LOERA NOTIFIED AND WE WILL CONTINUE TO MONITOR. pT ENCOURAGE TO REST EYES.
[2025-05-18] MEDS ORDERED: Insulin Glargine 100 Unit/ML 3 ML SYR SC SCH (21:00)
[2025-05-18] MEDS ORDERED: Insulin Human Lispro 100 Units/ML 3ML Syringe SC ONE (21:25)
[2025-05-19] VITALS (15 sets, daily range): BP systolic 139–197; BP diastolic 73–102
[2025-05-19 03:52] LABS: Albumin, Blood 2.3 g/dL (3.4-5.0); Anion Gap 12 mmol/L (3-11); Blood Urea Nitrogen 57 mg/dL (8-24); CO2, Blood 27 mmol/L (21-32); Calcium, Blood 7.9 mg/dL (8.5-10.1); Chloride, Blood 96 mmol/L (98-108); Creatinine, Blood 7.91 mg/dL (0.60-1.20); Glucose, Blood 278 mg/dL (70-99); Phosphorus, Blood 5.2 mg/dL (2.5-4.9); Potassium, Blood 4.8 mmol/L (3.5-5.5); Sodium, Blood 130 mmol/L (136-145)
--- NOTE | 2025-05-19 06:56 | NUR ---
PT STABLE THROUGHOUT SHIFT EXCEPT HTN X1 AND NAUSEA X1. PT WAS MEDICATED FOR BOTH OF THESE WITH GOOD EFFECT. PT DOES HAVE LE AND WAS PLACED ON 2L O2 NC WHILE SLEEPING D/T O2 SATS IN THE LOW 80S. PT AWOKE WHEN O2 APPLIED W/O PROBLEM. NO C/O CP OR DYSPNEA. PT ABLE TO USE CALL LIGHT AND MAKE NEEDS KNOWN. PT IS AOX4, SBA/1ASSIST. POTASSIUM IMPROVED.
[2025-05-19] MEDS ORDERED: Insulin Human Lispro 100 Units/ML 3ML Syringe SC SCH ×3 (07:30→16:30)
--- NOTE | 2025-05-19 09:12 | NUR ---
AM NOTE: THIS RN ASSUMED CARE OF PT AT APPROX 0700. PT A/OX4, ABLE TO MAKE NEEDS KNOWN & PARTICIPATE IN CARE. HTN NOTED W/ SBP UP TO 190'S, PT DENIES HEADACHE/BLURRED VISION. MD AWARE, ANTIHYPERTENSIVES ADMINISTERED PER EMAR. HR 70-80'S, SINUS RHYTHM ON MONITOR. SPO2 >90% ON RA WHILE AWAKE, 2L NC WHILE ASLEEP. AFEBRILE. TOLERATING PO INTAKE WELL, DENIES NAUSEA/VOMITING. PT REPORTS FEELING HOPEFUL THAT HE WILL BE DISCHARGED LATER TODAY PENDING BP IMPROVEMENT. CARDIAC & DIABETIC EDUCATION PROVIDED BY & THIS RN THIS MORNING. PT IS SLEEPING AT THIS TIME W/ CALL LIGHT IN REACH.
[2025-05-19] MEDS ORDERED: Isosorbide Mononitrate 30 MG TABCR PO ONE (11:00)
--- NOTE | 2025-05-19 11:15 | NUR ---
Hypoglycemia episode Patient had glucose checked. It was 38. Giving apple juice for him to drink. Called Dr Becerril to update her on his condition. He is still alert and oriented and is able to drink the juice at this time.
--- NOTE | 2025-05-19 11:51 | NUR ---
HYPOGLYCEMIA: BREAK RN JAVON TO CHECK PT'S CBG; CBG @ 1111 READING 38. PT INITIALLY DENIES ANY SYMPTOMS. DR. ANDRE NOTIFIED & TO THE BEDSIDE. PT REPORTS TO PROVIDER FEELING "SHAKY AND SWEATY". PT PROVIDED W/ JUICE & SNACKS. REPEAT CBG 45. PT REPORTS HALLUCINATIONS. ADDITIONAL JUICE/SNACKS PROVIDED. REPEAT CBG 53. PT REPORTS SYMPTOM IMPROVEMENT, EATING LUNCH AT THIS TIME. W/ VERBAL ORDERS FOR HYPOGLYCEMIA PROTOCOL, CANCEL PLAN FOR DISCHARGE TODAY.
--- NOTE | 2025-05-19 14:51 | NUR ---
TRANSFER NOTE: SEE PREVIOUS NOTES FOR SHIFT UPDATES. PT TRANSFERRED TO ROOM 339 VIA WHEELCHAIR BY THIS RN. ALL BELONGINGS TRANSFERRED W/ PT INCLUDING PHONE, TABLET, AND GLASSES. CBG 100 PRIOR TO DEPARTURE. REPORT TO JACKELINE RN TO ASSUME CARE OF PT.
--- NOTE | 2025-05-19 17:26 | NUR ---
ASSUMPTION OF CARE NOTE: PATIENT ARRIVES TO ROOM AT 1445 VIA W/C FROM ICU RM 2. ASSUMED CARE OF PATIENT. PATIENT TRANSFERRED TO BED c SBA, REPORTS NAUSEOUS, MEDICATED FOR NAUSEA c GOOD EFFECT. ABOUT AN HOUR LATER, PATIENT CALLED, REPORTS "I'M ALITTLE BIT OFF AND CONFUSED." THIS RN DID BLOOD SUGAR SPOT CHECK AND SHOWED 84. PATIENT OFFERED SNACKS, HE REQUEST PERRY CRACKERS AND AJ. PATIENT BLOOD SUGAR WAS RECHECK AT 1733, SHOWED 89. PATIENT SCHEDULED 4 UNITS HUMALOG INSULIN c MEALS WAS NOT GIVEN. NOTIFIED DR. ANDRE AND AGREED c CJ. PATIENT DENIES CP/PRESSURE, SOB AND DIZZINESS. PATIENT ON TELE SR IN HIGH 60'S BPM. PATIENT AMBULATED TO BATHROOM/BACK IN BED c SBA. VITAL SIGNS REVIEWED. CALL LIGHT IN REACH.
[2025-05-19] MEDS ORDERED: Insulin Glargine 100 Unit/ML 3 ML SYR SC SCH (21:00)
[2025-05-20] VITALS (23 sets, daily range): BP systolic 148–287; BP diastolic 86–110
[2025-05-20 07:09] LABS: BASOPHILS ABSOLUTE AUTO 0.03 K/mm3 (0.00-0.23); BASOPHILS PERCENT AUTO 0 % (0-2); EOSINOPHILS ABSOLUTE AUTO 0.44 K/mm3 (0.00-0.68); EOSINOPHILS PERCENT AUTO 5 % (0-6); Hematocrit 32.1 % (37.0-53.0); Hemoglobin 10.7 g/dL (13.5-17.5); IMMATURE GRAN ABSOLUTE AUTO 0.04 K/mm3 (0.00-0.10); IMMATURE GRAN PERCENT AUTO 1 % (0-1); LYMPHOCYTES ABSOLUTE AUTO 1.12 K/mm3 (0.84-5.20); LYMPHOCYTES PERCENT AUTO 14 % (21-46); MONOCYTES ABSOLUTE AUTO 0.82 K/mm3 (0.16-1.47); MONOCYTES PERCENT AUTO 10 % (4-13); Mean Corpuscular HGB Conc 33.3 g/dL (31.5-36.5); Mean Corpuscular Volume 85 fL (80-100); NEUTROPHILS ABSOLUTE AUTO 5.68 K/mm3 (1.96-9.15); NEUTROPHILS PERCENT AUTO 70 % (41-73); NRBC ABSOLUTE 0.00 K/mm3 (0.00-0.02); NRBC Auto 0.0 /100 WBC (0.0-0.2); Platelet Count 210 K/mm3 (150-400); RDW Coefficient Variation 14.6 % (11.7-14.2); RDW Standard Deviation 45.8 fL (35.1-46.3)
[2025-05-20 07:48] LABS: Albumin, Blood 2.6 g/dL (3.4-5.0); Anion Gap 15 mmol/L (3-11); Blood Urea Nitrogen 68 mg/dL (8-24); CO2, Blood 27 mmol/L (21-32); Calcium, Blood 7.4 mg/dL (8.5-10.1); Chloride, Blood 93 mmol/L (98-108); Creatinine, Blood 9.28 mg/dL (0.60-1.20); Glucose, Blood 262 mg/dL (70-99); Phosphorus, Blood 5.4 mg/dL (2.5-4.9); Potassium, Blood 5.5 mmol/L (3.5-5.5); Sodium, Blood 129 mmol/L (136-145)
--- NOTE | 2025-05-20 08:42 | NUR ---
PALLIATIVE CARE CONSULT: CONSULT RECEIVED FOR , ADVANCED CARE PLANNING, END OF LIFE/COMFORT CARE. REVEIWED MEDICAL RECORD. PT HAS HX OF ESRD AND IS ON HD. CURRENTLY ACUTELY ILL WITH HYPERTENSIVE CRISIS, HYPERGLYCEMIA AND HYPERKALEMIA. BLOOD SUGARS HAVE BEEN LABILE WITH HIGH AND LOW NUMBERS. PT BLOOD PRESSURE HAS ALSO BEEN HIGH AND IS TRENDING UP AGAIN. POLST/AD NOT ON FILE HERE BUT DID FIND POLST THROUGH [facility] STATING [facility]. PT IS CURRENTLY FULL CODE.
[2025-05-20] MEDS ORDERED: Isosorbide Mononitrate 60 MG TABCR PO SCH (09:00)
--- NOTE | 2025-05-20 15:30 | NUR ---
ATTEMPTED PC VISIT: PT DISCHARGED PRIOR TO VISIT. POLST ON FILE WITH [facility] SENT TO MEDICAL RECORDS.
--- NOTE | 2025-05-20 16:18 | NUR ---
DISCHARGE NOTE PATIENT A&OX4, LAYING IN BED. DISCUSSED DISCHARGE PLAN AND MEDICATIONS. PATIENT VERABLIZED UNDERSTANDING. DENIES ANY QUESTIONS. IV REMOVED, TELE REMOVED. PATIENT DRESSED HIMSELF AND WAS WHEELED OUT IN WHEELCHAIR BY MEDICAL STAFF. PATIENT HAS PERSONAL RIDE FROM FAMILY MEMBER.
== END 2025-05-20 15:57 | disposition home or self-care (01) | DRG 637 ==
LOC: ER 18:05 → PCU 18:06 → ICUE 18:06 → ER 21:35 → ICUE 21:50 → MEDS 05-19 14:40
PROVIDERS: Emergency Medicine; Hospitalist; Student in an Organized Health Care Education/Training Program; ADMIT Internal Medicine
DX: E10.69 Type 1 diabetes mellitus with other specified complication (principal); N18.6 End stage renal disease; E87.0 Hyperosmolality and hypernatremia; I12.0 Hypertensive chronic kidney disease with stage 5 chronic kidney disease or end stage renal disease; I16.1 Hypertensive emergency; E87.1 Hypo-osmolality and hyponatremia; E10.10 Type 1 diabetes mellitus with ketoacidosis without coma; E10.22 Type 1 diabetes mellitus with diabetic chronic kidney disease; D63.1 Anemia in chronic kidney disease; E87.5 Hyperkalemia; G47.34 Idiopathic sleep related nonobstructive alveolar hypoventilation; E83.51 Hypocalcemia; F17.210 Nicotine dependence, cigarettes, uncomplicated; E87.70 Fluid overload, unspecified; I25.10 Atherosclerotic heart disease of native coronary artery without angina pectoris; E10.649 Type 1 diabetes mellitus with hypoglycemia without coma; I25.2 Old myocardial infarction; Z99.2 Dependence on renal dialysis; Z86.73 Personal history of transient ischemic attack (TIA), and cerebral infarction without residual deficits; Z88.8 Allergy status to other drugs, medicaments and biological substances; Z79.82 Long term (current) use of aspirin; Z79.02 Long term (current) use of antithrombotics/antiplatelets; Z79.4 Long term (current) use of insulin; Z95.1 Presence of aortocoronary bypass graft
CPT/HCPCS: 36415; 70450; 70496; 70498; 80048; 80053; 80069; 80320; 82010; 82803; 82947; 83605; 83735; 84132; 85025; 87040; 93005; 93010; 93306; 94640; 94664; 94760; 94762; 96361; 96374-59; 96375; 96375-59; 96376; 99285-25; A9270; G0378; J0360; J0612; J1815; J2405; J3010; J7042; J7050; Q9967

== ENCOUNTER 2025-05-27 04:43 | Emergency (ER) | payer OTHER ==
[~2025-05-27] VITALS: Ht 172.7 cm; Wt 104.3 kg
[2025-05-27] MEDS ORDERED: Ipratropium/Albuterol SulF 2.5-0.5MG/3 ML Amp INH PRN (05:00)
[2025-05-27 05:27] LABS: BASOPHILS ABSOLUTE AUTO 0.04 K/mm3 (0.00-0.23); BASOPHILS PERCENT AUTO 1 % (0-2); EOSINOPHILS ABSOLUTE AUTO 0.34 K/mm3 (0.00-0.68); EOSINOPHILS PERCENT AUTO 4 % (0-6); Hematocrit 30.6 % (37.0-53.0); Hemoglobin 10.0 g/dL (13.5-17.5); IMMATURE GRAN ABSOLUTE AUTO 0.04 K/mm3 (0.00-0.10); IMMATURE GRAN PERCENT AUTO 1 % (0-1); LYMPHOCYTES ABSOLUTE AUTO 1.05 K/mm3 (0.84-5.20); LYMPHOCYTES PERCENT AUTO 13 % (21-46); MONOCYTES ABSOLUTE AUTO 0.90 K/mm3 (0.16-1.47); MONOCYTES PERCENT AUTO 11 % (4-13); Mean Corpuscular HGB Conc 32.7 g/dL (31.5-36.5); Mean Corpuscular Volume 87 fL (80-100); NEUTROPHILS ABSOLUTE AUTO 5.58 K/mm3 (1.96-9.15); NEUTROPHILS PERCENT AUTO 70 % (41-73); NRBC ABSOLUTE 0.00 K/mm3 (0.00-0.02); NRBC Auto 0.0 /100 WBC (0.0-0.2); Platelet Count 248 K/mm3 (150-400); RDW Coefficient Variation 14.2 % (11.7-14.2); RDW Standard Deviation 44.9 fL (35.1-46.3)
[2025-05-27 06:25] LABS: Alanine Aminotransfer (ALT/SGP 212.0 U/L (12-78); Albumin, Blood 2.7 g/dL (3.4-5.0); Albumin/Globulin Ratio 0.7 (0.8-1.8); Anion Gap 17.0 mmol/L (3-11); Aspartate Aminotrans (AST/SGOT 222.0 U/L (12-37); Bilirubin, Total 0.6 mg/dL (0.1-1.0); Blood Urea Nitrogen 86.0 mg/dL (8-24); CO2, Blood 22.0 mmol/L (21-32); Calcium, Blood 6.8 mg/dL (8.5-10.1); Chloride, Blood 97.0 mmol/L (98-108); Creatinine, Blood 9.46 mg/dL (0.60-1.20); Globulin, Blood 3.8 g/dL (2.2-4.0); Glucose, Blood 576.0 mg/dL (70-99); Potassium, Blood 5.6 mmol/L (3.5-5.5); Sodium, Blood 130.0 mmol/L (136-145); Total Protein, Blood 6.5 g/dL (6.4-8.2)
[2025-05-27 07:23] LABS: Osmolality, Serum 338.0 mos/KG (275-300)
[2025-05-27] MEDS ORDERED: Isosorbide Mononitrate 60 MG TABCR PO ONE (07:40)
[2025-05-27] MEDS ORDERED: Insulin Human Lispro 100 Units/ML 3ML Syringe SC ONE (07:45)
[2025-05-27 08:10] VITALS: BP 202/100
== END 2025-05-27 08:25 | disposition left against medical advice (07) ==
LOC: ER 04:43
PROVIDERS: Emergency Medicine
DX: I12.0 Hypertensive chronic kidney disease with stage 5 chronic kidney disease or end stage renal disease (principal); N18.5 Chronic kidney disease, stage 5; E10.65 Type 1 diabetes mellitus with hyperglycemia; E10.22 Type 1 diabetes mellitus with diabetic chronic kidney disease; R07.89 Other chest pain; Z79.899 Other long term (current) drug therapy; F17.210 Nicotine dependence, cigarettes, uncomplicated; Z79.4 Long term (current) use of insulin
CPT/HCPCS: 36415; 71046; 80053; 82010; 83690; 83930; 84484; 85025; 93005; 93010; 99285-25; A9270; J1815

== ENCOUNTER 2025-05-29 00:02 | Emergency (ER) | payer OTHER ==
[~2025-05-29] VITALS: Ht 172.7 cm; Wt 104.3 kg
[2025-05-29 00:47] LABS: BASOPHILS ABSOLUTE AUTO 0.03 K/mm3 (0.00-0.23); BASOPHILS PERCENT AUTO 0 % (0-2); EOSINOPHILS ABSOLUTE AUTO 0.40 K/mm3 (0.00-0.68); EOSINOPHILS PERCENT AUTO 5 % (0-6); Hematocrit 29.2 % (37.0-53.0); Hemoglobin 9.5 g/dL (13.5-17.5); IMMATURE GRAN ABSOLUTE AUTO 0.05 K/mm3 (0.00-0.10); IMMATURE GRAN PERCENT AUTO 1 % (0-1); LYMPHOCYTES ABSOLUTE AUTO 1.33 K/mm3 (0.84-5.20); LYMPHOCYTES PERCENT AUTO 15 % (21-46); MONOCYTES ABSOLUTE AUTO 0.99 K/mm3 (0.16-1.47); MONOCYTES PERCENT AUTO 11 % (4-13); Mean Corpuscular HGB Conc 32.5 g/dL (31.5-36.5); Mean Corpuscular Volume 86 fL (80-100); NEUTROPHILS ABSOLUTE AUTO 6.02 K/mm3 (1.96-9.15); NEUTROPHILS PERCENT AUTO 68 % (41-73); NRBC ABSOLUTE 0.00 K/mm3 (0.00-0.02); NRBC Auto 0.0 /100 WBC (0.0-0.2); Platelet Count 250 K/mm3 (150-400); RDW Coefficient Variation 14.3 % (11.7-14.2); RDW Standard Deviation 44.8 fL (35.1-46.3)
[2025-05-29 01:58] LABS: Alanine Aminotransfer (ALT/SGP 144.0 U/L (12-78); Albumin, Blood 2.9 g/dL (3.4-5.0); Albumin/Globulin Ratio 0.8 (0.8-1.8); Anion Gap 13.0 mmol/L (3-11); Aspartate Aminotrans (AST/SGOT 83.0 U/L (12-37); Bilirubin, Total 0.6 mg/dL (0.1-1.0); Blood Urea Nitrogen 64.0 mg/dL (8-24); CO2, Blood 27.0 mmol/L (21-32); Calcium, Blood 7.4 mg/dL (8.5-10.1); Chloride, Blood 101.0 mmol/L (98-108); Globulin, Blood 3.8 g/dL (2.2-4.0); Glucose, Blood 270.0 mg/dL (70-99); Potassium, Blood 5.7 mmol/L (3.5-5.5); Sodium, Blood 135.0 mmol/L (136-145); Total Protein, Blood 6.7 g/dL (6.4-8.2)
[2025-05-29 01:59] LABS: Creatinine, Blood 8.39 mg/dL (0.60-1.20)
[2025-05-29 02:49] VITALS: BP 177/78
== END 2025-05-29 03:03 | disposition home or self-care (01) ==
LOC: ER 00:02
PROVIDERS: Emergency Medicine
DX: R06.02 Shortness of breath (principal); I12.0 Hypertensive chronic kidney disease with stage 5 chronic kidney disease or end stage renal disease; E10.22 Type 1 diabetes mellitus with diabetic chronic kidney disease; N18.6 End stage renal disease; I25.10 Atherosclerotic heart disease of native coronary artery without angina pectoris; I25.2 Old myocardial infarction; E78.5 Hyperlipidemia, unspecified; E10.40 Type 1 diabetes mellitus with diabetic neuropathy, unspecified; F17.210 Nicotine dependence, cigarettes, uncomplicated; Z99.2 Dependence on renal dialysis; Z79.82 Long term (current) use of aspirin; Z79.4 Long term (current) use of insulin; Z88.8 Allergy status to other drugs, medicaments and biological substances; Z79.899 Other long term (current) drug therapy
CPT/HCPCS: 80053; 84484; 85025; 93005; 93010; 99285-25

== ENCOUNTER 2025-06-07 16:16 | Emergency (ER) | payer OTHER ==
[~2025-06-07] VITALS: Ht 172.7 cm; Wt 85.4 kg
[2025-06-07] MEDS ORDERED: LORazepam 2 MG/ML 1ML Injection IV ONE (16:25)
[2025-06-07 16:42] LABS: BASOPHILS ABSOLUTE AUTO 0.09 K/mm3 (0.00-0.23); BASOPHILS PERCENT AUTO 1 % (0-2); EOSINOPHILS ABSOLUTE AUTO 0.20 K/mm3 (0.00-0.68); EOSINOPHILS PERCENT AUTO 2 % (0-6); Hematocrit 31.0 % (37.0-53.0); Hemoglobin 10.2 g/dL (13.5-17.5); IMMATURE GRAN ABSOLUTE AUTO 0.30 K/mm3 (0.00-0.10); IMMATURE GRAN PERCENT AUTO 4 % (0-1); LYMPHOCYTES ABSOLUTE AUTO 1.06 K/mm3 (0.84-5.20); LYMPHOCYTES PERCENT AUTO 13 % (21-46); MONOCYTES ABSOLUTE AUTO 0.88 K/mm3 (0.16-1.47); MONOCYTES PERCENT AUTO 10 % (4-13); Mean Corpuscular HGB Conc 32.9 g/dL (31.5-36.5); Mean Corpuscular Volume 87 fL (80-100); NEUTROPHILS ABSOLUTE AUTO 5.90 K/mm3 (1.96-9.15); NEUTROPHILS PERCENT AUTO 70 % (41-73); NRBC ABSOLUTE 0.03 K/mm3 (0.00-0.02); NRBC Auto 0.4 /100 WBC (0.0-0.2); Platelet Count 261 K/mm3 (150-400); RDW Coefficient Variation 14.8 % (11.7-14.2); RDW Standard Deviation 46.8 fL (35.1-46.3)
[2025-06-07 16:50] LABS: Magnesium, Blood 2.2 mg/dL (1.6-2.4)
[2025-06-07 16:57] LABS: Alanine Aminotransfer (ALT/SGP 134.0 U/L (12-78); Albumin, Blood 3.3 g/dL (3.4-5.0); Albumin/Globulin Ratio 0.8 (0.8-1.8); Anion Gap 15.0 mmol/L (3-11); Aspartate Aminotrans (AST/SGOT 80.0 U/L (12-37); Bilirubin, Total 0.6 mg/dL (0.1-1.0); Blood Urea Nitrogen 33.0 mg/dL (8-24); CO2, Blood 24.0 mmol/L (21-32); Calcium, Blood 8.0 mg/dL (8.5-10.1); Chloride, Blood 101.0 mmol/L (98-108); Creatinine, Blood 4.89 mg/dL (0.60-1.20); Globulin, Blood 4.4 g/dL (2.2-4.0); Glucose, Blood 45.0 mg/dL (70-99); Potassium, Blood 4.2 mmol/L (3.5-5.5); Sodium, Blood 136.0 mmol/L (136-145); Total Protein, Blood 7.7 g/dL (6.4-8.2)
[2025-06-07 17:22] LABS: Calcium, Ionized (POC) 0.94 mmol/L (1.10-1.46); Chloride (POC) 100 mmol/L (98-108); Creatinine (POC) 4.9 mg/dL (0.8-1.3); Glucose (ISTAT POC) 42 mg/dL (70-99); Hematocrit (POC) 31.0 % (41.0-53.0); Hemoglobin (POC) 10.5 g/dL (13.5-17.5); Potassium (POC) 4.4 mmol/L (3.5-5.5); Sodium (POC) 139 mmol/L (135-148); Total CO2 (POC) 22 mmol/L (21-32)
[2025-06-07 19:45] VITALS: BP 193/99
== END 2025-06-07 20:02 | disposition home or self-care (01) ==
LOC: ER 16:16
PROVIDERS: Emergency Medicine
DX: R56.9 Unspecified convulsions (principal); E10.649 Type 1 diabetes mellitus with hypoglycemia without coma; E10.22 Type 1 diabetes mellitus with diabetic chronic kidney disease; N18.6 End stage renal disease; R74.01 Elevation of levels of liver transaminase levels; F17.210 Nicotine dependence, cigarettes, uncomplicated; Z99.2 Dependence on renal dialysis; Z88.8 Allergy status to other drugs, medicaments and biological substances; Z79.02 Long term (current) use of antithrombotics/antiplatelets; Z79.82 Long term (current) use of aspirin; Z79.4 Long term (current) use of insulin; Z79.899 Other long term (current) drug therapy
CPT/HCPCS: 70450; 71045; 80047; 80053; 80320; 82947; 83735; 85014; 85025; 93005; 93010; 99285-25